=== PATIENT | male | born 1955 | race Two or more races ===

== ENCOUNTER 2021-11-08 11:15 | Inpatient (IN) | payer MEDICAID ==
[~2021-11-08] VITALS: Ht 160 cm; Wt 70.5 kg
[2021-11-08 12:51] LABS: BASOPHILS # (AUTO) 0.1 X10'3 (0-0.2); BASOPHILS % (AUTO) 1.2 % (0-1); EOSINOPHILS # (AUTO) 0.2 X10'3 (0-0.9); EOSINOPHILS % (AUTO) 2.2 % (0-6); HEMATOCRIT 39.5 % (42.0-52.0); HEMOGLOBIN 13.2 g/dl (14.0-17.9); LYMPHOCYTES # (AUTO) 3.1 X10'3 (1.1-4.8); LYMPHOCYTES % (AUTO) 29.5 % (21-51); MEAN CORPUSCULAR HEMOGLOBIN 30.3 PG (27.0-31.0); MEAN CORPUSCULAR HGB CONC 33.5 g/dL (33.0-36.5); MEAN CORPUSCULAR VOLUME 90.4 FL (78-98); MEAN PLATELET VOLUME 8.2 FL (7.4-10.4); MONOCYTES # (AUTO) 0.8 X10'3 (0-0.9); MONOCYTES % (AUTO) 7.7 % (2-12); NEUTROPHILS # (AUTO) 6.2 X10'3 (1.8-7.7); NEUTROPHILS % (AUTO) 59.4 % (42-75); PLATELET COUNT 290 X10'3 (140-440); RED BLOOD COUNT 4.37 X10'6 (4.70-6.10); RED CELL DISTRIBUTION WIDTH 13.4 % (11.5-14.5); WHITE BLOOD COUNT 10.4 X10'3 (4.5-11.0)
[2021-11-08 13:05] LABS: APTT 28 SECONDS (22-32)
[2021-11-08 13:07] LABS: ALANINE AMINOTRANSFERASE 19 U/L (12-78); ALBUMIN 3.4 G/DL (3.4-5.0); ALBUMIN/GLOBULIN RATIO 0.8 (1.1-1.5); ALKALINE PHOSPHATASE 86 IU/L (46-116); ANION GAP 8 (8-16); ASPARTATE AMINO TRANSFERASE 18 U/L (10-37); BILIRUBIN,TOTAL 0.5 MG/DL (0.1-1.0); BLOOD UREA NITROGEN 26 MG/DL (7-18); BUN/CREATININE RATIO 15.3 (5.4-32.0); CALCIUM 8.9 MG/DL (8.5-10.1); CHLORIDE 103 MMOL/L (99-107); GLUCOSE 149 MG/DL (70-104); MAGNESIUM 2.3 MG/DL (1.5-2.4); POTASSIUM 5.1 MMOL/L (3.5-5.1); SODIUM 138 MMOL/L (135-145); TOTAL CARBON DIOXIDE 26.9 MMOL/L (24-32); TOTAL PROTEIN 7.8 G/DL (6.4-8.2); eGFR 41 ML/MIN
[2021-11-08] MEDS ORDERED: potassium CL 10mEq/100ml bag 100 ML IV PRN (14:00)
[2021-11-08] MEDS ORDERED: mag hydrox/Alum hydrox/simeth 30ml oral suspension PO PRN (14:00)
[2021-11-08] MEDS ORDERED: HYDROmorphone/PF 0.2 MG/ML SYRINGE IV PRN (14:00)
[2021-11-08] MEDS ORDERED: magnesium 4gm in 100ml NS 100 ML IV PRN (14:00)
[2021-11-08] MEDS ORDERED: magnesium Cl slow-release 64mg tablet PO PRN (14:00)
[2021-11-08] MEDS ORDERED: magnesium 2GM in 50ml NS 50 ML IV PRN (14:00)
[2021-11-08] MEDS ORDERED: ampicillin/sulbac 3gm/NS 100ml 100 ML IV SCH (14:00)
[2021-11-08] MEDS ORDERED: POTASSIUM BICARB 20meq eff tab 20 MEQ TABLET.EFF PO PRN ×2 (14:00)
[2021-11-08] MEDS ORDERED: ampicillin/sulbac 3gm/NS 100ml 100 ML IV ONE (14:00)
--- NOTE | 2021-11-08 14:06 | NUR ---
PHARMACY IS IN PROCESS OF REVIEWING THE MEDS.
[2021-11-08 15:01] LABS: MAGNESIUM 2.2 MG/DL (1.5-2.4); POTASSIUM 4.7 MMOL/L (3.5-5.1)
[2021-11-08] MEDS: normal saline 1000ml 1,000 ML IV SCH (15:38)
[2021-11-08] MEDS: HYDROmorphone inj. 0.5 MG/0.5 ML DISP.SYRIN IV PRN ×2 (16:07→23:48)
[2021-11-08] MEDS ORDERED: HUM100IN SQ (16:44)
[2021-11-08] MEDS ORDERED: INSU100I31 SQ (16:44)
[2021-11-08] MEDS ORDERED: ASPI-611 PO (16:44)
[2021-11-08] MEDS ORDERED: FLO0.4C PO (16:44)
[2021-11-08] MEDS ORDERED: CARV6.253 PO (16:44)
[2021-11-08] MEDS ORDERED: AMLO5TAB16 PO (16:44)
[2021-11-08] MEDS ORDERED: ERTU5TAB PO (16:44)
[2021-11-08] MEDS ORDERED: VALS40TA11 PO (16:44)
[2021-11-08] MEDS ORDERED: GABA300C PO (16:44)
[2021-11-08] MEDS ORDERED: ATOR40TA72 PO (16:44)
[2021-11-08] MEDS: K and/or MAG REPLACEMENT MC SCH (20:00)
[2021-11-08] MEDS: docusate sod 100mg capsule PO SCH (20:29)
[2021-11-08] MEDS: gabapentin 300mg capsule PO SCH (20:29)
[2021-11-08] MEDS: carvedilol 6.25mg tablet PO SCH (20:30)
[2021-11-08] MEDS: enoxaparin 30mg/0.3ml syringe SQ SCH (20:31)
[2021-11-08] MEDS: piperacillin/tazo 3.375gm/50ml 50 ML IV SCH (20:37)
[2021-11-08] MEDS ORDERED: insulin glargine (Lantus) pen - multi-dose SQ SCH (21:00)
[2021-11-08 23:41] VITALS: BP 167/75
[2021-11-09] MEDS: normal saline 1000ml 1,000 ML IV SCH ×3 (00:08→21:59)
[2021-11-09 02:00] VITALS: BP 149/79
[2021-11-09 06:00] VITALS: BP 169/70
[2021-11-09 07:10] LABS: BASOPHILS # (AUTO) 0.1 X10'3 (0-0.2); BASOPHILS % (AUTO) 0.9 % (0-1); EOSINOPHILS # (AUTO) 0.3 X10'3 (0-0.9); EOSINOPHILS % (AUTO) 2.5 % (0-6); HEMATOCRIT 36.9 % (42.0-52.0); HEMOGLOBIN 12.2 g/dl (14.0-17.9); LYMPHOCYTES # (AUTO) 2.2 X10'3 (1.1-4.8); LYMPHOCYTES % (AUTO) 21.7 % (21-51); MEAN CORPUSCULAR HGB CONC 32.9 g/dL (33.0-36.5); MEAN CORPUSCULAR VOLUME 91.2 FL (78-98); MEAN PLATELET VOLUME 8.7 FL (7.4-10.4); MONOCYTES % (AUTO) 9.6 % (2-12); NEUTROPHILS # (AUTO) 6.7 X10'3 (1.8-7.7); NEUTROPHILS % (AUTO) 65.3 % (42-75); PLATELET COUNT 274 X10'3 (140-440); RED BLOOD COUNT 4.05 X10'6 (4.70-6.10); RED CELL DISTRIBUTION WIDTH 13.4 % (11.5-14.5); WHITE BLOOD COUNT 10.3 X10'3 (4.5-11.0)
[2021-11-09 07:17] LABS: ALBUMIN 2.9 G/DL (3.4-5.0); ANION GAP 9 (8-16); BLOOD UREA NITROGEN 22 MG/DL (7-18); BUN/CREATININE RATIO 17.5 (5.4-32.0); CALCIUM 8.3 MG/DL (8.5-10.1); CHLORIDE 110 MMOL/L (99-107); CREATININE 1.26 MG/DL (0.60-1.10); GLUCOSE 53 MG/DL (70-104); MAGNESIUM 2.1 MG/DL (1.5-2.4); POTASSIUM 4.1 MMOL/L (3.5-5.1); SODIUM 144 MMOL/L (135-145); TOTAL CARBON DIOXIDE 25.2 MMOL/L (24-32); eGFR 58 ML/MIN
[2021-11-09] MEDS: enoxaparin 30mg/0.3ml syringe SQ SCH ×2 (07:48→21:57)
[2021-11-09] MEDS: piperacillin/tazo 3.375gm/50ml 50 ML IV SCH ×3 (07:48→21:58)
[2021-11-09] MEDS: gabapentin 300mg capsule PO SCH ×2 (07:49→21:58)
[2021-11-09] MEDS: tamsulosin 0.4mg capsule PO SCH (07:49)
[2021-11-09] MEDS: docusate sod 100mg capsule PO SCH ×2 (07:49→21:58)
[2021-11-09] MEDS: atorvastatin 20mg tablet PO SCH (07:49)
[2021-11-09] MEDS: carvedilol 6.25mg tablet PO SCH ×2 (07:49→21:58)
[2021-11-09] MEDS: amLODIPine 5mg tablet PO SCH (07:49)
[2021-11-09] MEDS: aspirin 81mg, enteric-coated 1 TAB TABLET.DR PO SCH (07:50)
[2021-11-09] MEDS: losartan 25mg tablet PO SCH (07:50)
[2021-11-09 07:58] LABS: HEMOGLOBIN A1C 8.9 % (4.5-6.2)
[2021-11-09] MEDS: K and/or MAG REPLACEMENT MC SCH ×2 (08:00→20:00)
[2021-11-09] MEDS ORDERED: INSULIN ISOPHANE SQ SCH (08:00)
[2021-11-09] MEDS ORDERED: INSULIN REGULAR SQ SCH (08:00)
[2021-11-09] MEDS ORDERED: ERTUGLIFLOZIN PIDOLATE PO SCH (08:00)
[2021-11-09] MEDS ORDERED: [UNRECOGNIZED DRUG - OTHER] SQ SCH (08:00)
--- NOTE | 2021-11-09 09:09 | NUR ---
PAGER ID: [phone] MESSAGE: alisia Tomlinson in room 4084O BG this AM 56. Held 0800 scheduled insulin and PO antiglycemic PO meds thank you JANE BEASLEY
[2021-11-09] MEDS ORDERED: dextrose 50%-water 50ml dispensing syringe IV PRN ×2 (09:20)
[2021-11-09] MEDS ORDERED: glucagon, human recombinant 1mg kit SUBCUT PRN (09:20)
[2021-11-09] MEDS ORDERED: DEXTROSE 15 GM of carb/4 tabs (each vial/BOTTLE has 4 tablets) PO PRN ×2 (09:20)
[2021-11-09] MEDS ORDERED: MESSAGE TO PHARMACY PO ONE (09:20)
[2021-11-09 10:00] VITALS: BP 142/76
[2021-11-09] MEDS ORDERED: pneumococcal 23-VAL P-sac vacc 25 mcg/0.5ml vial IMVAC ONE (10:00)
--- NOTE | 2021-11-09 11:57 | NUR ---
DM Consult: Pt admit DX R foot cellulitis and eschar wound, RLE PVD, T2DM, and HTN per EMR. A1C 8.9% this admit. Pt seen by RD at bedside for written/verbal DM diet ed w/ RD contact information provided. Pt reports takes meds per Rx, checks Glu routinely, and most recent A1C ~9.3% last check. Pt reports previously more on top of DM diet w/ A1C around 7 in 2020 but admits has been more lax of diet as of late. Pt reports has had DM ed in past aware of portion size control, protein/fiber sources, and hydration. RD encouraged pt to contact dietitian's office if further questions/concerns. Addendum: 11/09/21 at [address] Amended: Links added.
[2021-11-09] MEDS ORDERED: midazolam 1 mg/ML 2ml injection ONE (13:56)
[2021-11-09] MEDS ORDERED: iohexol 350MG/ML 100ml bottle IV ONE (13:56)
[2021-11-09] MEDS ORDERED: LIDOcaine 1%/PF 5ML 10 MG/ML VIAL ONE (13:56)
[2021-11-09] MEDS ORDERED: fentaNYL/PF 50MCG/1 ML 2ML syringe ONE (13:56)
[2021-11-09] MEDS ORDERED: heparin 1,000 UNITS/NS 500ml 500 ML ONE (13:56)
[2021-11-09] MEDS: insulin glargine (Lantus) pen - multi-dose SQ SCH ×2 (21:00→22:04)
[2021-11-09] MEDS: HYDROmorphone inj. 0.5 MG/0.5 ML DISP.SYRIN IV PRN (21:25)
[2021-11-10] MEDS: piperacillin/tazo 3.375gm/50ml 50 ML IV SCH ×3 (05:25→21:33)
[2021-11-10 06:00] VITALS: BP 157/65
[2021-11-10] MEDS: normal saline 1000ml 1,000 ML IV SCH ×3 (06:00→18:16)
--- NOTE | 2021-11-10 06:30 | NUR ---
Patient in room PCU 3017. I have received report from RAMOS Egan and had the opportunity to ask questions and assume patient care.
[2021-11-10 07:16] LABS: BASOPHILS # (AUTO) 0.1 X10'3 (0-0.2); BASOPHILS % (AUTO) 1.2 % (0-1); EOSINOPHILS # (AUTO) 0.7 X10'3 (0-0.9); EOSINOPHILS % (AUTO) 7.8 % (0-6); HEMATOCRIT 35.4 % (42.0-52.0); HEMOGLOBIN 11.9 g/dl (14.0-17.9); LYMPHOCYTES # (AUTO) 2.5 X10'3 (1.1-4.8); LYMPHOCYTES % (AUTO) 30.1 % (21-51); MEAN CORPUSCULAR HEMOGLOBIN 30.5 PG (27.0-31.0); MEAN CORPUSCULAR HGB CONC 33.6 g/dL (33.0-36.5); MEAN CORPUSCULAR VOLUME 90.6 FL (78-98); MEAN PLATELET VOLUME 8.6 FL (7.4-10.4); MONOCYTES # (AUTO) 0.9 X10'3 (0-0.9); MONOCYTES % (AUTO) 10.3 % (2-12); NEUTROPHILS # (AUTO) 4.2 X10'3 (1.8-7.7); NEUTROPHILS % (AUTO) 50.6 % (42-75); PLATELET COUNT 256 X10'3 (140-440); RED BLOOD COUNT 3.91 X10'6 (4.70-6.10); RED CELL DISTRIBUTION WIDTH 13.3 % (11.5-14.5); WHITE BLOOD COUNT 8.4 X10'3 (4.5-11.0)
[2021-11-10 07:19] LABS: ALBUMIN 2.8 G/DL (3.4-5.0); ANION GAP 6 (8-16); BLOOD UREA NITROGEN 19 MG/DL (7-18); BUN/CREATININE RATIO 11.5 (5.4-32.0); CALCIUM 8.1 MG/DL (8.5-10.1); CHLORIDE 110 MMOL/L (99-107); CREATININE 1.65 MG/DL (0.60-1.10); GLUCOSE 111 MG/DL (70-104); POTASSIUM 4.6 MMOL/L (3.5-5.1); SODIUM 142 MMOL/L (135-145); TOTAL CARBON DIOXIDE 26.1 MMOL/L (24-32); eGFR 42 ML/MIN
[2021-11-10] MEDS: K and/or MAG REPLACEMENT MC SCH ×2 (08:00→20:00)
[2021-11-10] MEDS: magnesium hydroxide 30ml (MOM) UD suspension PO PRN (09:54)
[2021-11-10] MEDS: atorvastatin 20mg tablet PO SCH (09:54)
[2021-11-10] MEDS: losartan 25mg tablet PO SCH (09:54)
[2021-11-10] MEDS: amLODIPine 5mg tablet PO SCH (09:55)
[2021-11-10] MEDS: gabapentin 300mg capsule PO SCH ×2 (09:55→21:33)
[2021-11-10] MEDS: tamsulosin 0.4mg capsule PO SCH (09:55)
[2021-11-10] MEDS: aspirin 81mg, enteric-coated 1 TAB TABLET.DR PO SCH (09:55)
[2021-11-10] MEDS: carvedilol 6.25mg tablet PO SCH ×2 (09:55→21:33)
[2021-11-10] MEDS: docusate sod 100mg capsule PO SCH ×2 (09:55→21:34)
[2021-11-10] MEDS: enoxaparin 30mg/0.3ml syringe SQ SCH ×2 (09:56→21:33)
[2021-11-10] MEDS: insulin Lispro (HumaLOG) vial - multi-dose SQ SCH (10:02)
[2021-11-10 11:00] VITALS: BP 168/68
[2021-11-10 15:00] VITALS: BP 167/80
[2021-11-10] MEDS: HYDROmorphone inj. 0.5 MG/0.5 ML DISP.SYRIN IV PRN (16:59)
[2021-11-10] MEDS: hydrALAZINE 20mg/ml inj. IV PRN (17:03)
[2021-11-10 18:00] VITALS: BP 135/62
--- NOTE | 2021-11-10 18:30 | NUR ---
Problems reprioritized. Patient report given, questions answered & plan of care reviewed with RAMOS Rojas.
[2021-11-10 22:00] VITALS: BP 142/64
[2021-11-11] VITALS (7 sets, daily range): BP systolic 113–187; BP diastolic 53–81
[2021-11-11] MEDS: piperacillin/tazo 3.375gm/50ml 50 ML IV SCH ×3 (04:00→22:45)
--- NOTE | 2021-11-11 06:30 | NUR ---
Patient in room PCU 3017. I have received report from RAMOS Rojas and had the opportunity to ask questions and assume patient care.
[2021-11-11 06:31] LABS: BASOPHILS # (AUTO) 0.1 X10'3 (0-0.2); BASOPHILS % (AUTO) 1.3 % (0-1); EOSINOPHILS # (AUTO) 0.4 X10'3 (0-0.9); EOSINOPHILS % (AUTO) 4.3 % (0-6); HEMATOCRIT 37.5 % (42.0-52.0); HEMOGLOBIN 12.3 g/dl (14.0-17.9); LYMPHOCYTES # (AUTO) 2.3 X10'3 (1.1-4.8); LYMPHOCYTES % (AUTO) 23.7 % (21-51); MEAN CORPUSCULAR HEMOGLOBIN 29.7 PG (27.0-31.0); MEAN CORPUSCULAR HGB CONC 32.7 g/dL (33.0-36.5); MEAN CORPUSCULAR VOLUME 90.8 FL (78-98); MEAN PLATELET VOLUME 8.8 FL (7.4-10.4); MONOCYTES # (AUTO) 0.8 X10'3 (0-0.9); MONOCYTES % (AUTO) 7.8 % (2-12); NEUTROPHILS # (AUTO) 6.1 X10'3 (1.8-7.7); NEUTROPHILS % (AUTO) 62.9 % (42-75); PLATELET COUNT 268 X10'3 (140-440); RED BLOOD COUNT 4.13 X10'6 (4.70-6.10); RED CELL DISTRIBUTION WIDTH 13.2 % (11.5-14.5); WHITE BLOOD COUNT 9.8 X10'3 (4.5-11.0)
[2021-11-11 06:36] LABS: ALBUMIN 2.9 G/DL (3.4-5.0); ANION GAP 10 (8-16); BLOOD UREA NITROGEN 14 MG/DL (7-18); BUN/CREATININE RATIO 9.3 (5.4-32.0); CALCIUM 8.4 MG/DL (8.5-10.1); CHLORIDE 109 MMOL/L (99-107); CREATININE 1.51 MG/DL (0.60-1.10); GLUCOSE 133 MG/DL (70-104); POTASSIUM 4.6 MMOL/L (3.5-5.1); SODIUM 142 MMOL/L (135-145); TOTAL CARBON DIOXIDE 23.1 MMOL/L (24-32); eGFR 47 ML/MIN
[2021-11-11] MEDS: normal saline 1000ml 1,000 ML IV SCH (06:55)
[2021-11-11] MEDS: hydrALAZINE 20mg/ml inj. IV PRN ×3 (06:56→22:28)
[2021-11-11] MEDS: K and/or MAG REPLACEMENT MC SCH ×2 (08:00→20:00)
[2021-11-11] MEDS: HYDROmorphone inj. 0.5 MG/0.5 ML DISP.SYRIN IV PRN ×2 (11:07→22:29)
[2021-11-11] MEDS: gabapentin 300mg capsule PO SCH ×2 (11:08→20:02)
[2021-11-11] MEDS: aspirin 81mg, enteric-coated 1 TAB TABLET.DR PO SCH (11:08)
[2021-11-11] MEDS: atorvastatin 20mg tablet PO SCH (11:08)
[2021-11-11] MEDS: docusate sod 100mg capsule PO SCH ×2 (11:08→20:02)
[2021-11-11] MEDS: tamsulosin 0.4mg capsule PO SCH (11:08)
[2021-11-11] MEDS: amLODIPine 5mg tablet PO SCH (11:08)
[2021-11-11] MEDS: losartan 25mg tablet PO SCH (11:09)
[2021-11-11] MEDS: carvedilol 6.25mg tablet PO SCH ×2 (11:09→20:01)
[2021-11-11] MEDS: enoxaparin 30mg/0.3ml syringe SQ SCH ×2 (11:10→20:03)
--- NOTE | 2021-11-11 18:50 | NUR ---
Problems reprioritized. Patient report given, questions answered & plan of care reviewed with RAMOS Reinoso.
[2021-11-11] MEDS: insulin Lispro (HumaLOG) vial - multi-dose SQ SCH (19:54)
--- NOTE | 2021-11-11 22:59 | NUR ---
Message sent to Dr. Singh to report critical blood sugar [address] Singh called back. Informed of sliding scale insulin given after BS met parameter. Pt appears to be very sensitive. Juice given as well as D50 per protocol. Blood sugar recheck 209. stated ok to hold lantus tonight and has team look at possible changing scale tomorrow.
[2021-11-11] MEDS: insulin glargine (Lantus) pen - multi-dose SQ SCH (23:17)
[2021-11-12 02:00] VITALS: BP 143/60
[2021-11-12] MEDS: normal saline 1000ml 1,000 ML IV SCH ×3 (03:53→19:35)
[2021-11-12] MEDS: piperacillin/tazo 3.375gm/50ml 50 ML IV SCH ×3 (04:00→22:00)
[2021-11-12 06:00] VITALS: BP 165/77
--- NOTE | 2021-11-12 06:50 | NUR ---
Patient in room PCU 3017. I have received report from RAMOS Reinoso and had the opportunity to ask questions and assume patient care.
--- NOTE | 2021-11-12 07:31 | NUR ---
1800 Report given to this RN from RAMOS Box at bedside. Care assumed. Pt in no distress. Pt got x1 dose of dilaudid for pain. He also got x1 dose of hydralazine. Blood sugar critical last night. MD notified. See note. 0615 Report givent to RAMOS Box at bedside. Questions answered. Pt in no acute distress at time of handoff.
[2021-11-12 08:08] LABS: BASOPHILS # (AUTO) 0.1 X10'3 (0-0.2); BASOPHILS % (AUTO) 0.8 % (0-1); EOSINOPHILS # (AUTO) 0.3 X10'3 (0-0.9); EOSINOPHILS % (AUTO) 3.1 % (0-6); HEMATOCRIT 34.9 % (42.0-52.0); HEMOGLOBIN 11.8 g/dl (14.0-17.9); LYMPHOCYTES # (AUTO) 2.6 X10'3 (1.1-4.8); LYMPHOCYTES % (AUTO) 26.4 % (21-51); MEAN CORPUSCULAR HEMOGLOBIN 30.4 PG (27.0-31.0); MEAN CORPUSCULAR HGB CONC 33.7 g/dL (33.0-36.5); MEAN CORPUSCULAR VOLUME 90.2 FL (78-98); MONOCYTES # (AUTO) 1.1 X10'3 (0-0.9); MONOCYTES % (AUTO) 11.2 % (2-12); NEUTROPHILS # (AUTO) 5.8 X10'3 (1.8-7.7); NEUTROPHILS % (AUTO) 58.5 % (42-75); PLATELET COUNT 232 X10'3 (140-440); RED BLOOD COUNT 3.87 X10'6 (4.70-6.10); RED CELL DISTRIBUTION WIDTH 13.1 % (11.5-14.5); WHITE BLOOD COUNT 9.8 X10'3 (4.5-11.0)
[2021-11-12 08:20] LABS: ALBUMIN 2.7 G/DL (3.4-5.0); ANION GAP 9 (8-16); BLOOD UREA NITROGEN 14 MG/DL (7-18); BUN/CREATININE RATIO 9.5 (5.4-32.0); CALCIUM 8.2 MG/DL (8.5-10.1); CHLORIDE 109 MMOL/L (99-107); CREATININE 1.48 MG/DL (0.60-1.10); GLUCOSE 170 MG/DL (70-104); MAGNESIUM 1.8 MG/DL (1.5-2.4); POTASSIUM 4.3 MMOL/L (3.5-5.1); SODIUM 141 MMOL/L (135-145); TOTAL CARBON DIOXIDE 23.3 MMOL/L (24-32); eGFR 48 ML/MIN
--- NOTE | 2021-11-12 08:21 | NUR ---
Initial: Pt admitted w/ R foot cellulitis w/ open wounds and PVD per EMR. Pt documented w/ multiple partial/full thickness wounds to bilateral feet, see WOC note for details. Currently on Carb Control diet w/ mostly 100% intake of meals meeting est needs at this time, though pt may still benefit from Oswaldo Smoothies BID to assist w/ wound healing. LBM / receiving routine and PRN bowel care. Will continue to monitor. Recs; 1. Continue Carb control diet as tolerated 2. Oswaldo Smoothies BIDBD; pending MD verification 3. Bowel care per rx 4. Scaled wts Addendum: 11/12/21 at [address] Amended: Links added.
[2021-11-12] MEDS: K and/or MAG REPLACEMENT MC SCH ×2 (10:32→19:41)
[2021-11-12] MEDS: atorvastatin 20mg tablet PO SCH (10:39)
[2021-11-12] MEDS: losartan 25mg tablet PO SCH (10:39)
[2021-11-12] MEDS: carvedilol 6.25mg tablet PO SCH ×2 (10:39→19:42)
[2021-11-12] MEDS: aspirin 81mg, enteric-coated 1 TAB TABLET.DR PO SCH (10:42)
[2021-11-12] MEDS: amLODIPine 5mg tablet PO SCH (10:42)
[2021-11-12] MEDS: tamsulosin 0.4mg capsule PO SCH (10:42)
[2021-11-12] MEDS: docusate sod 100mg capsule PO SCH ×2 (10:42→19:47)
[2021-11-12] MEDS: gabapentin 300mg capsule PO SCH ×2 (10:42→19:47)
[2021-11-12] MEDS: enoxaparin 30mg/0.3ml syringe SQ SCH ×2 (10:43→19:48)
[2021-11-12] MEDS: HYDROmorphone inj. 0.5 MG/0.5 ML DISP.SYRIN IV PRN ×2 (10:44→17:04)
[2021-11-12 11:00] VITALS: BP 186/83
[2021-11-12 15:00] VITALS: BP 156/68
[2021-11-12] MEDS: JUVEN Smoothie Arginine/Glut./Ca2+Bmb (Juven 19.3pkt) 240ml cup PO SCH (17:30)
[2021-11-12 18:40] VITALS: BP 154/76
--- NOTE | 2021-11-12 19:40 | NUR ---
Problems reprioritized. Patient report given, questions answered & plan of care reviewed with RAMOS Michaud.
[2021-11-12 22:00] VITALS: BP 152/64
[2021-11-12] MEDS: insulin glargine (Lantus) pen - multi-dose SQ SCH (23:19)
[2021-11-13 02:00] VITALS: BP 166/64
[2021-11-13] MEDS: normal saline 1000ml 1,000 ML IV SCH (04:30)
[2021-11-13] MEDS: piperacillin/tazo 3.375gm/50ml 50 ML IV SCH (05:37)
[2021-11-13 06:54] LABS: BASOPHILS # (AUTO) 0.1 X10'3 (0-0.2); BASOPHILS % (AUTO) 0.9 % (0-1); EOSINOPHILS # (AUTO) 0.4 X10'3 (0-0.9); EOSINOPHILS % (AUTO) 4.9 % (0-6); HEMATOCRIT 34.5 % (42.0-52.0); HEMOGLOBIN 11.6 g/dl (14.0-17.9); LYMPHOCYTES # (AUTO) 2.1 X10'3 (1.1-4.8); LYMPHOCYTES % (AUTO) 23.8 % (21-51); MEAN CORPUSCULAR HEMOGLOBIN 30.2 PG (27.0-31.0); MEAN CORPUSCULAR HGB CONC 33.5 g/dL (33.0-36.5); MEAN CORPUSCULAR VOLUME 90.3 FL (78-98); MEAN PLATELET VOLUME 9.1 FL (7.4-10.4); MONOCYTES % (AUTO) 10.7 % (2-12); NEUTROPHILS # (AUTO) 5.4 X10'3 (1.8-7.7); NEUTROPHILS % (AUTO) 59.7 % (42-75); PLATELET COUNT 243 X10'3 (140-440); RED BLOOD COUNT 3.82 X10'6 (4.70-6.10); RED CELL DISTRIBUTION WIDTH 13.1 % (11.5-14.5)
[2021-11-13 07:00] VITALS: BP 181/79
[2021-11-13 07:07] LABS: ALBUMIN 2.7 G/DL (3.4-5.0); ANION GAP 8 (8-16); BLOOD UREA NITROGEN 17 MG/DL (7-18); BUN/CREATININE RATIO 12.4 (5.4-32.0); CHLORIDE 111 MMOL/L (99-107); CREATININE 1.37 MG/DL (0.60-1.10); GLUCOSE 135 MG/DL (70-104); POTASSIUM 4.3 MMOL/L (3.5-5.1); SODIUM 143 MMOL/L (135-145); TOTAL CARBON DIOXIDE 24.3 MMOL/L (24-32); eGFR 52 ML/MIN
--- NOTE | 2021-11-13 07:20 | NUR ---
Problems reprioritized. Patient report given, questions answered & plan of care reviewed with AKILAH. Addendum: 11/13/21 at 0721 by Navjot Perez RN Amended: Links added.
--- NOTE | 2021-11-13 07:21 | NUR ---
Problems reprioritized. Patient report given, questions answered & plan of care reviewed with AKILAH. Addendum: 11/13/21 at 0722 by Navjot Perez RN Amended: Links added.
[2021-11-13] MEDS: JUVEN Smoothie Arginine/Glut./Ca2+Bmb (Juven 19.3pkt) 240ml cup PO SCH ×2 (07:30→17:44)
[2021-11-13] MEDS: K and/or MAG REPLACEMENT MC SCH ×2 (08:00→20:00)
[2021-11-13] MEDS: docusate sod 100mg capsule PO SCH ×2 (08:00→21:03)
[2021-11-13] MEDS: gabapentin 300mg capsule PO SCH ×2 (08:57→21:03)
[2021-11-13] MEDS: enoxaparin 30mg/0.3ml syringe SQ SCH ×2 (08:57→21:04)
[2021-11-13] MEDS: carvedilol 6.25mg tablet PO SCH ×2 (08:57→21:03)
[2021-11-13] MEDS: amLODIPine 5mg tablet PO SCH (08:58)
[2021-11-13] MEDS: tamsulosin 0.4mg capsule PO SCH (08:58)
[2021-11-13] MEDS: losartan 25mg tablet PO SCH (08:58)
[2021-11-13] MEDS: aspirin 81mg, enteric-coated 1 TAB TABLET.DR PO SCH (08:58)
[2021-11-13] MEDS: atorvastatin 20mg tablet PO SCH (08:58)
[2021-11-13] MEDS ORDERED: losartan 50mg tablet PO SCH (09:17)
[2021-11-13] MEDS ORDERED: losartan 50mg tablet PO ONE (09:35)
[2021-11-13] MEDS: HYDROcodone/acetaminophen 10/325mg tab PO PRN ×2 (10:51→15:58)
[2021-11-13 12:10] VITALS: BP 125/77
--- NOTE | 2021-11-13 13:28 | NUR ---
Spoke to DR Ozuna regarding [facility] nursing order states to keep patient at level 1 and only treat correction for blood sugar. Dr Ozuna is aware patient blood sugar is 245 now and was 121 this am no insulin given per protocol. Per Dr Ozuna keep patient the way it is for the next 24 hours and we will reassess tomorrow.
[2021-11-13] MEDS: insulin Lispro (HumaLOG) vial - multi-dose SQ SCH (13:38)
[2021-11-13 15:00] VITALS: BP 164/74
[2021-11-13 18:40] VITALS: BP 172/82
--- NOTE | 2021-11-13 18:42 | NUR ---
Problems reprioritized. Patient report given, questions answered & plan of care reviewed with Jaswant BEASLEY bedside report .
[2021-11-13] MEDS: insulin glargine (Lantus) pen - multi-dose SQ SCH (21:18)
[2021-11-13 22:00] VITALS: BP 181/83
[2021-11-13] MEDS: hydrALAZINE 20mg/ml inj. IV PRN (23:01)
[2021-11-14] VITALS (19 sets, daily range): BP systolic 128–185; BP diastolic 56–80
--- NOTE | 2021-11-14 06:30 | NUR ---
Problems reprioritized. Patient report given, questions answered & plan of care reviewed with AKILAH. Addendum: 11/14/21 at 0649 by Navjot Perez RN Amended: Links added.
--- NOTE | 2021-11-14 07:01 | NUR ---
Patient in room PCU 3017. I have received report from Jaswant BEASLEY and had the opportunity to ask questions and assume patient care.
--- NOTE | 2021-11-14 07:23 | NUR ---
Jean Carlos with [facility] stating they are not aware of him coming today until Dr Garcia comes in. Doddridge with V[facility] will be here in 30 min for vein mapping, EKG was paged for Preop EKG
[2021-11-14] MEDS: JUVEN Smoothie Arginine/Glut./Ca2+Bmb (Juven 19.3pkt) 240ml cup PO SCH ×2 (07:30→17:30)
[2021-11-14] MEDS: enoxaparin 30mg/0.3ml syringe SQ SCH ×2 (07:31→23:18)
[2021-11-14] MEDS: aspirin 81mg, enteric-coated 1 TAB TABLET.DR PO SCH (07:36)
[2021-11-14] MEDS: carvedilol 6.25mg tablet PO SCH ×2 (07:36→23:17)
[2021-11-14] MEDS: gabapentin 300mg capsule PO SCH ×2 (07:36→23:17)
[2021-11-14] MEDS: amLODIPine 5mg tablet PO SCH (07:37)
[2021-11-14] MEDS: tamsulosin 0.4mg capsule PO SCH (07:37)
[2021-11-14] MEDS: atorvastatin 20mg tablet PO SCH (07:37)
[2021-11-14] MEDS: docusate sod 100mg capsule PO SCH ×2 (07:39→23:17)
[2021-11-14] MEDS: K and/or MAG REPLACEMENT MC SCH ×2 (08:00→23:04)
[2021-11-14 08:04] LABS: BASOPHILS # (AUTO) 0.1 X10'3 (0-0.2); BASOPHILS % (AUTO) 1.2 % (0-1); EOSINOPHILS # (AUTO) 0.5 X10'3 (0-0.9); EOSINOPHILS % (AUTO) 5.3 % (0-6); HEMATOCRIT 36.2 % (42.0-52.0); HEMOGLOBIN 12.1 g/dl (14.0-17.9); LYMPHOCYTES # (AUTO) 1.9 X10'3 (1.1-4.8); LYMPHOCYTES % (AUTO) 22.2 % (21-51); MEAN CORPUSCULAR HGB CONC 33.3 g/dL (33.0-36.5); MEAN CORPUSCULAR VOLUME 90.2 FL (78-98); MEAN PLATELET VOLUME 8.4 FL (7.4-10.4); MONOCYTES # (AUTO) 0.9 X10'3 (0-0.9); MONOCYTES % (AUTO) 9.8 % (2-12); NEUTROPHILS # (AUTO) 5.4 X10'3 (1.8-7.7); NEUTROPHILS % (AUTO) 61.5 % (42-75); PLATELET COUNT 268 X10'3 (140-440); RED BLOOD COUNT 4.02 X10'6 (4.70-6.10); RED CELL DISTRIBUTION WIDTH 13.4 % (11.5-14.5); WHITE BLOOD COUNT 8.8 X10'3 (4.5-11.0)
[2021-11-14 08:42] LABS: ALANINE AMINOTRANSFERASE 52 U/L (12-78); ALBUMIN 2.9 G/DL (3.4-5.0); ALBUMIN/GLOBULIN RATIO 0.8 (1.1-1.5); ALKALINE PHOSPHATASE 59 IU/L (46-116); ANION GAP 9 (8-16); ASPARTATE AMINO TRANSFERASE 46 U/L (10-37); BILIRUBIN,TOTAL 0.3 MG/DL (0.1-1.0); BLOOD UREA NITROGEN 22 MG/DL (7-18); BUN/CREATININE RATIO 16.3 (5.4-32.0); CALCIUM 8.7 MG/DL (8.5-10.1); CHLORIDE 108 MMOL/L (99-107); CREATININE 1.35 MG/DL (0.60-1.10); GLUCOSE 130 MG/DL (70-104); POTASSIUM 4.4 MMOL/L (3.5-5.1); SODIUM 142 MMOL/L (135-145); TOTAL CARBON DIOXIDE 24.6 MMOL/L (24-32); TOTAL PROTEIN 6.6 G/DL (6.4-8.2); eGFR 53 ML/MIN
[2021-11-14] MEDS: losartan 50mg tablet PO SCH (10:13)
--- NOTE | 2021-11-14 14:41 | NUR ---
Called Dr Mary anesthesiologist he is aware patients current BP is 182/80 I advised I do have IV Hydralazine [address] Mary please give to patient,.
[2021-11-14] MEDS: hydrALAZINE 20mg/ml inj. IV PRN (14:50)
[2021-11-14] MEDS ORDERED: heparin 10,000 units/1 ML INJ ONE (15:32)
[2021-11-14] MEDS ORDERED: midazolam 1 mg/ML 2ml injection ONE (16:01)
[2021-11-14] MEDS ORDERED: fentaNYL /PF 50mcg/ml 5ml ampule ONE (16:01)
--- NOTE | 2021-11-14 16:32 | NUR ---
Went into patient room to check on patient and patient and hospital bed were gone. Called recovery room patient is down there. Report given to Christina in Recovery all questions answered. Advised Christina that I did not know patient was taken to recovery so patients Ancef was not sent. Per Christina they have Ancef down there it is ok.
[2021-11-14] MEDS ORDERED: vancomycin 1,000mg inj ONE (16:51)
[2021-11-14] MEDS ORDERED: ondansetron/PF 4mg/2ml inj ONE (16:51)
[2021-11-14] MEDS ORDERED: sevoflurane 250ml liquid IH ONE (16:51)
[2021-11-14] MEDS ORDERED: ceFAZolin 1000mg inj ONE ×3 (16:51→17:44)
[2021-11-14] MEDS ORDERED: dexamethasone sod phosphate 10mg/ml inj ONE (16:51)
[2021-11-14] MEDS ORDERED: rocuronium 10mg/ml inj IV ONE ×2 (16:51→17:45)
[2021-11-14] MEDS ORDERED: propofol inj 0 ML IV ONE (17:44)
[2021-11-14] MEDS ORDERED: LIDOcaine 2% (20mg/ml) 5ml vial ONE (17:44)
[2021-11-14] MEDS ORDERED: propofol inj 20 ML IV ONE (17:45)
--- NOTE | 2021-11-14 17:59 | NUR ---
Patients took home all patients belongings.
[2021-11-14] MEDS ORDERED: iohexol 180mg/ml 20ml inj ONE (18:10)
--- NOTE | 2021-11-14 18:35 | NUR ---
Problems reprioritized. Patient report given, questions answered & plan of care reviewed with Cornelia BEASLEY.
[2021-11-14] MEDS ORDERED: IOHEXOL 350 MG/ML INFUS..BTL 125ML IV ONE (19:57)
[2021-11-14] MEDS ORDERED: labetalol 20mg/4ml (5mg/ml) syringe IV PRN (20:10)
[2021-11-14] MEDS ORDERED: ringers solution, lacted 1,000 ML IV SCH (20:10)
[2021-11-14] MEDS ORDERED: morphine 2 MG/ML inj. syringe IV PRN (20:10)
[2021-11-14] MEDS ORDERED: morphine 4 MG/ML inj SYRINge IV PRN (20:10)
[2021-11-14] MEDS ORDERED: hydrALAZINE 20mg/ml inj. IV PRN (20:10)
[2021-11-14] MEDS ORDERED: proCHLORperazine 10 MG/2 ml inj IV PRN (20:10)
[2021-11-14] MEDS ORDERED: meperidine/PF 25mg/ml syringe IV PRN ×2 (20:10)
[2021-11-14] MEDS ORDERED: acetaminophen 1,000mg/100ml IV 100 ML IV PRN (20:10)
[2021-11-14] MEDS ORDERED: ondansetron/PF 4mg/2ml inj IV PRN (20:10)
[2021-11-14] MEDS ORDERED: sugammadex 200mg/2ml injection IV ONE (21:17)
--- NOTE | 2021-11-14 21:22 | NUR ---
Received from OR via BED, accompanied by Anesthesiologist DR ZAIDI and report given by Anesthesiologist AND FINANCIAL SERVICES REP. PT DROWSY, DENIES PAIN. RIGHT INNER LEG FROM BELOW GROIN TO FOOT W/ISLAND DRSG W/SCANT AMTS OF S/S DRAINAGE, RIGHT LATERAL CALF W/ISLAND DRSG W/SCANT AMTS OF S/S DRAINAGE. PTS GRAFT AND PEDAL PULSES PALPABLE. CXR OBTAINED AND VIEWED BY DR ROSE. PT/PTT REDRAWN AND SENT TO LAB. Addendum: 11/14/21 at 2208 by Christina Henley RN Amended: Links added.
[2021-11-14] MEDS ORDERED: naloxone 0.4 mg/ml inj IV PRN (21:25)
[2021-11-14] MEDS: meperidine/PF 25mg/ml syringe IV PRN ×2 (21:44→21:56)
[2021-11-14 22:17] LABS: APTT > 139 SECONDS (22-32)
--- NOTE | 2021-11-14 22:42 | NUR ---
Report called to receiving nurse. Transferred via BED ON CM, ONLY Belongings UPPER DENTURES SENT W/PT TO ROOM 2039. RECEIVING RN AT BEDSIDE TO RECEIVE PT, REASSESSED RIGHT LEG AND DRSG'S, NO CHANGES NOTED. PULSES REMAIN THE SAME. PTS FAMILY UPDATED. Special Issues communicated to receiving nurse. YES. Addendum: 11/14/21 at 2304 by Christina Henley RN Amended: Links added.
[2021-11-14] MEDS: normal saline 1000ml 1,000 ML IV SCH ×2 (23:25)
[2021-11-14] MEDS: insulin glargine (Lantus) pen - multi-dose SQ SCH (23:49)
[2021-11-15] VITALS (18 sets, daily range): BP systolic 40–142; BP diastolic 21–66
[2021-11-15] MEDS: ceFAZolin/D5W- 1GM premix 50 ML IV SCH ×2 (00:45)
[2021-11-15] MEDS: HYDROmorphone inj. 0.5 MG/0.5 ML DISP.SYRIN IV PRN (01:48)
[2021-11-15] MEDS: insulin Lispro (HumaLOG) vial - multi-dose SQ SCH ×2 (03:35→12:38)
[2021-11-15 03:46] LABS: ALANINE AMINOTRANSFERASE 54 U/L (12-78); ALBUMIN 2.3 G/DL (3.4-5.0); ALBUMIN/GLOBULIN RATIO 0.7 (1.1-1.5); ALKALINE PHOSPHATASE 53 IU/L (46-116); ANION GAP 14 (8-16); ASPARTATE AMINO TRANSFERASE 55 U/L (10-37); BILIRUBIN,TOTAL 0.2 MG/DL (0.1-1.0); BLOOD UREA NITROGEN 25 MG/DL (7-18); CHLORIDE 107 MMOL/L (99-107); CREATININE 1.47 MG/DL (0.60-1.10); GLUCOSE 157 MG/DL (70-104); MAGNESIUM 1.6 MG/DL (1.5-2.4); PHOSPHORUS 5.1 MG/DL (2.3-4.5); POTASSIUM 4.3 MMOL/L (3.5-5.1); SODIUM 141 MMOL/L (135-145); TOTAL CARBON DIOXIDE 19.6 MMOL/L (24-32); TOTAL PROTEIN 5.5 G/DL (6.4-8.2); eGFR 48 ML/MIN
[2021-11-15 03:56] LABS: BASOPHILS # (AUTO) 0.1 X10'3 (0-0.2); BASOPHILS % (AUTO) 0.4 % (0-1); EOSINOPHILS % (AUTO) 0 % (0-6); HEMATOCRIT 30.2 % (42.0-52.0); LYMPHOCYTES # (AUTO) 1.5 X10'3 (1.1-4.8); LYMPHOCYTES % (AUTO) 8.2 % (21-51); MEAN CORPUSCULAR VOLUME 90.8 FL (78-98); MEAN PLATELET VOLUME 8.9 FL (7.4-10.4); MONOCYTES % (AUTO) 5.5 % (2-12); NEUTROPHILS # (AUTO) 15.8 X10'3 (1.8-7.7); NEUTROPHILS % (AUTO) 85.9 % (42-75); PLATELET COUNT 225 X10'3 (140-440); RED BLOOD COUNT 3.32 X10'6 (4.70-6.10); RED CELL DISTRIBUTION WIDTH 13.4 % (11.5-14.5); WHITE BLOOD COUNT 18.4 X10'3 (4.5-11.0)
[2021-11-15 04:38] LABS: TOTAL CELLS COUNTED 100
[2021-11-15 04:40] LABS: PLATELET ESTIMATE NORMAL
[2021-11-15] MEDS: HYDROcodone/acetaminophen 5mg/325mg tablet PO PRN ×3 (04:54→16:53)
[2021-11-15] MEDS ORDERED: magnesium 2GM in 50ml NS 50 ML IV ONE (06:50)
[2021-11-15] MEDS: docusate sod 100mg capsule PO SCH ×2 (07:08→19:49)
[2021-11-15] MEDS: gabapentin 300mg capsule PO SCH ×2 (07:08→19:49)
[2021-11-15] MEDS: carvedilol 6.25mg tablet PO SCH ×2 (07:09→20:00)
[2021-11-15] MEDS: atorvastatin 20mg tablet PO SCH (07:09)
[2021-11-15] MEDS: amLODIPine 5mg tablet PO SCH (07:09)
[2021-11-15] MEDS: aspirin 81mg, enteric-coated 1 TAB TABLET.DR PO SCH (07:09)
[2021-11-15] MEDS: tamsulosin 0.4mg capsule PO SCH (07:09)
[2021-11-15] MEDS: JUVEN Smoothie Arginine/Glut./Ca2+Bmb (Juven 19.3pkt) 240ml cup PO SCH ×2 (07:10→17:38)
[2021-11-15] MEDS: enoxaparin 30mg/0.3ml syringe SQ SCH ×2 (07:10→19:59)
[2021-11-15] MEDS: losartan 50mg tablet PO SCH (07:10)
[2021-11-15] MEDS: K and/or MAG REPLACEMENT MC SCH ×2 (07:11→20:00)
--- NOTE | 2021-11-15 13:39 | NUR ---
PRESSURE ULCER EDUCATION: DEFINITION: A pressure ulcer is an area of skin that breaks down when you stay in one position too long. The constant pressure against the skin reduces the blood flow to that area and the affected tissue dies. CAUSES: "Being bedridden or in a wheelchair "Fragile skin "Having a chronic condition, such as diabetes or vascular disease "Inability to move certain parts of your body without assistance "Older age "Incontinence of urine or stool SYMPTOMS: "A reddened area that DOES NOT turn white when pressed on - this can be the beginning of a pressure ulcer "A blister, deep sore or a crater - these can be advanced pressure ulcers FIRST AID: "Relieve the pressure on this area "Keep the area clean and dry "Call your primary doctor if you see any of the above symptoms "DO NOT massage the area "DO NOT use a donut shaped or ring shaped pillow- these actually interfere with the blood flow and cause complications PREVENTION: "Check for pressure ulcers everyday "Change position at least every two hours to relieve pressure "Use items that help relieve pressure- pillows, sheepskin, foam padding, and powders. "Keep skin clean and dry "Eat healthy well balanced meals "Exercise daily IF YOU SEE ANY OF THESE SYMPTOMS WHILE IN THE HOSPITAL - TELL YOUR NURSE IMMEDIATELY. IF YOU SEE ANY OF THESE SYMPTOMS WHILE AT HOME OR HAVE ANY QUESTIONS OR CONCERNS ABOUT PRESSURE ULCERS - CALL YOUR PRIMARY DOCTOR IMMEDIATELY. Addendum: 11/15/21 at 1340 by Anna Benedict LVN Amended: Links added.
--- NOTE | 2021-11-15 14:19 | NUR ---
Patient in room ICU 2039. I have received report from Rashi BEASLEY ICU and had the opportunity to ask questions and assume patient care.
[2021-11-15] MEDS ORDERED: benzocaine/menthol oral lozeng 1 EACH BOX MM PRN (17:45)
[2021-11-15] MEDS ORDERED: HALLS - SOOTHE MENTHOL 1.8 MG cough drop LOZENGE MM PRN (18:28)
[2021-11-15] MEDS: ondansetron/PF 4mg/2ml inj IV PRN (19:49)
[2021-11-15] MEDS: HYDROcodone/acetaminophen 10/325mg tab PO PRN (19:50)
[2021-11-15] MEDS: insulin glargine (Lantus) pen - multi-dose SQ SCH (21:00)
[2021-11-15] MEDS ORDERED: potassium Cl 20 mEq SR tablet PO PRN ×2 (21:50)
[2021-11-15] MEDS ORDERED: potassium CL 10mEq/100ml bag 100 ML IV PRN (21:50)
[2021-11-15] MEDS ORDERED: magnesium Cl slow-release 64mg tablet PO PRN (21:50)
[2021-11-15] MEDS ORDERED: magnesium 4gm in 100ml NS 100 ML IV PRN (21:50)
[2021-11-16] VITALS (9 sets, daily range): BP systolic 112–164; BP diastolic 51–84
[2021-11-16] MEDS: normal saline 1000ml 1,000 ML IV SCH (01:10)
[2021-11-16] MEDS: ceFAZolin/D5W- 1GM premix 50 ML IV SCH ×2 (02:35→07:59)
[2021-11-16] MEDS: acetaminophen 325mg tablet PO PRN (02:37)
--- NOTE | 2021-11-16 06:53 | NUR ---
Patient in room PCU 3013. I have received report from Gen BEASLEY Traveler and had the opportunity to ask questions and assume patient care.
[2021-11-16 07:20] LABS: BASOPHILS # (AUTO) 0.1 X10'3 (0-0.2); BASOPHILS % (AUTO) 0.4 % (0-1); EOSINOPHILS # (AUTO) 0.1 X10'3 (0-0.9); EOSINOPHILS % (AUTO) 0.5 % (0-6); HEMATOCRIT 26.4 % (42.0-52.0); HEMOGLOBIN 8.7 g/dl (14.0-17.9); LYMPHOCYTES # (AUTO) 2.5 X10'3 (1.1-4.8); MEAN CORPUSCULAR HGB CONC 32.9 g/dL (33.0-36.5); MEAN CORPUSCULAR VOLUME 91.1 FL (78-98); MEAN PLATELET VOLUME 9.1 FL (7.4-10.4); MONOCYTES # (AUTO) 2.1 X10'3 (0-0.9); MONOCYTES % (AUTO) 15.9 % (2-12); NEUTROPHILS # (AUTO) 8.4 X10'3 (1.8-7.7); NEUTROPHILS % (AUTO) 64.2 % (42-75); PLATELET COUNT 213 X10'3 (140-440); RED CELL DISTRIBUTION WIDTH 13.5 % (11.5-14.5); WHITE BLOOD COUNT 13.1 X10'3 (4.5-11.0)
[2021-11-16 07:32] LABS: ALANINE AMINOTRANSFERASE 27 U/L (12-78); ALBUMIN 2.3 G/DL (3.4-5.0); ALBUMIN/GLOBULIN RATIO 0.7 (1.1-1.5); ALKALINE PHOSPHATASE 54 IU/L (46-116); ANION GAP 6 (8-16); ASPARTATE AMINO TRANSFERASE 18 U/L (10-37); BILIRUBIN,TOTAL 0.2 MG/DL (0.1-1.0); BLOOD UREA NITROGEN 43 MG/DL (7-18); BUN/CREATININE RATIO 17.7 (5.4-32.0); CALCIUM 7.6 MG/DL (8.5-10.1); CHLORIDE 102 MMOL/L (99-107); CREATININE 2.43 MG/DL (0.60-1.10); GLUCOSE 270 MG/DL (70-104); MAGNESIUM 2.7 MG/DL (1.5-2.4); PHOSPHORUS 4.4 MG/DL (2.3-4.5); POTASSIUM 4.9 MMOL/L (3.5-5.1); SODIUM 134 MMOL/L (135-145); TOTAL CARBON DIOXIDE 26.2 MMOL/L (24-32); TOTAL PROTEIN 5.5 G/DL (6.4-8.2); eGFR 27 ML/MIN
[2021-11-16] MEDS: JUVEN Smoothie Arginine/Glut./Ca2+Bmb (Juven 19.3pkt) 240ml cup PO SCH ×2 (07:46→17:30)
[2021-11-16] MEDS: docusate sod 100mg capsule PO SCH ×2 (07:46→20:23)
[2021-11-16] MEDS: tamsulosin 0.4mg capsule PO SCH (07:47)
[2021-11-16] MEDS: gabapentin 300mg capsule PO SCH ×2 (07:47→20:23)
[2021-11-16] MEDS: atorvastatin 20mg tablet PO SCH (07:48)
[2021-11-16] MEDS: carvedilol 6.25mg tablet PO SCH (07:48)
[2021-11-16] MEDS: aspirin 81mg, enteric-coated 1 TAB TABLET.DR PO SCH (07:48)
[2021-11-16] MEDS: HYDROcodone/acetaminophen 5mg/325mg tablet PO PRN (07:49)
[2021-11-16] MEDS: enoxaparin 30mg/0.3ml syringe SQ SCH (07:50)
[2021-11-16] MEDS: K and/or MAG REPLACEMENT MC SCH ×2 (08:00→20:00)
[2021-11-16] MEDS: losartan 50mg tablet PO SCH (08:00)
[2021-11-16] MEDS: amLODIPine 5mg tablet PO SCH (08:00)
[2021-11-16 08:24] LABS: LARGE PLATELETS FEW; PLATELET ESTIMATE NORMAL; TOTAL CELLS COUNTED 100
[2021-11-16] MEDS: insulin Lispro (HumaLOG) vial - multi-dose SQ SCH (10:00)
[2021-11-16] MEDS: HYDROcodone/acetaminophen 10/325mg tab PO PRN (13:44)
[2021-11-16] MEDS: ondansetron/PF 4mg/2ml inj IV PRN (15:05)
--- NOTE | 2021-11-16 15:25 | NUR ---
Pt 's daughter came to the nursing station and stated pt was not breathing. Upon assessing, pt was disoriented, pale and diaphoretic. Pt was responding with a bit of a delay. BP was elevated 190's, hr 80. I requested to call a rapid, charge nurse, Дмитрий decided that it was not needed. He ordered a [address] childs, who ordered labs and cancelled coreg and lovenox changed it to Daily instead of BID. Pt was back to his baseline within 5 minutes. Family were agitated, crying and I asked to to step out of the room while I did a complete assessment. Pulses were examined and Doppler. pt stated he was nauseated and started to vomit. Zofran was given immediately. pt was A & o x4. Dr Montero was called to assess. PA for cardiac came and assessed. Dr Puentes came anyways. Dr Puentes stated he believe pt had an episode of syncope/bradicardia. He spoke to Dr Arceo and it was agreed to get an ecco and a caratoid ultrasound. pt will have a Fen-Pop on left leg on saturday.
--- NOTE | 2021-11-16 16:16 | NUR ---
Message: Donald Jiangosmin berman# [phone]- Pt was given Zofran 1hr ago, still nauseated/vomiting.Could I get an order for Compazine in case is needed. bp 142/61 HR81, 98% 1L, RR17. (fyi-did not administered hydralazine). Marilyn Eldridge
--- NOTE | 2021-11-16 16:35 | NUR ---
Problems reprioritized. Patient report given, questions answered & plan of care reviewed with Elzbieta BEASLEY.
[2021-11-16] MEDS ORDERED: gabapentin 300mg capsule PO SCH (20:00)
[2021-11-16 20:44] LABS: ALANINE AMINOTRANSFERASE 25 U/L (12-78); ALBUMIN 2.4 G/DL (3.4-5.0); ALBUMIN/GLOBULIN RATIO 0.7 (1.1-1.5); ALKALINE PHOSPHATASE 64 IU/L (46-116); ANION GAP 9 (8-16); ASPARTATE AMINO TRANSFERASE 15 U/L (10-37); BILIRUBIN,TOTAL 0.2 MG/DL (0.1-1.0); BLOOD UREA NITROGEN 48 MG/DL (7-18); CALCIUM 8.1 MG/DL (8.5-10.1); CHLORIDE 101 MMOL/L (99-107); CREATININE 2.66 MG/DL (0.60-1.10); GLUCOSE 295 MG/DL (70-104); POTASSIUM 5.3 MMOL/L (3.5-5.1); SODIUM 134 MMOL/L (135-145); TOTAL CARBON DIOXIDE 23.6 MMOL/L (24-32); TOTAL PROTEIN 5.8 G/DL (6.4-8.2); eGFR 24 ML/MIN
[2021-11-16] MEDS: insulin glargine (Lantus) pen - multi-dose SQ SCH (21:00)
[2021-11-17] MEDS: hyDRALAzine 10mg tablet PO SCH ×3 (00:58→17:05)
[2021-11-17 02:00] VITALS: BP 147/64
[2021-11-17] MEDS: HYDROcodone/acetaminophen 5mg/325mg tablet PO PRN ×2 (05:58→10:58)
[2021-11-17 06:00] VITALS: BP 156/67
--- NOTE | 2021-11-17 06:59 | NUR ---
PAGER ID: [phone] MESSAGE: Kalli Tele [phone] Re: Donald Robbins [phone] please call bladder scanned patient shows 800ml's in bladder had not voided all night Addendum: 11/17/21 at 0702 by Kalli Juarez RN Placed linares catheter for retention per MD kohli
[2021-11-17 07:03] LABS: BASOPHILS # (AUTO) 0.1 X10'3 (0-0.2); BASOPHILS % (AUTO) 0.4 % (0-1); EOSINOPHILS # (AUTO) 0.1 X10'3 (0-0.9); HEMATOCRIT 25.7 % (42.0-52.0); HEMOGLOBIN 8.5 g/dl (14.0-17.9); LYMPHOCYTES # (AUTO) 2.3 X10'3 (1.1-4.8); LYMPHOCYTES % (AUTO) 18.1 % (21-51); MEAN CORPUSCULAR HEMOGLOBIN 30.2 PG (27.0-31.0); MEAN CORPUSCULAR VOLUME 91.6 FL (78-98); MEAN PLATELET VOLUME 9.3 FL (7.4-10.4); MONOCYTES # (AUTO) 1.7 X10'3 (0-0.9); MONOCYTES % (AUTO) 13.3 % (2-12); NEUTROPHILS # (AUTO) 8.6 X10'3 (1.8-7.7); NEUTROPHILS % (AUTO) 67.2 % (42-75); PLATELET COUNT 223 X10'3 (140-440); RED BLOOD COUNT 2.81 X10'6 (4.70-6.10); RED CELL DISTRIBUTION WIDTH 13.1 % (11.5-14.5); WHITE BLOOD COUNT 12.8 X10'3 (4.5-11.0)
--- NOTE | 2021-11-17 07:03 | NUR ---
Problems reprioritized. Patient report given, questions answered & plan of care reviewed with
[2021-11-17] MEDS ORDERED: LIDOcaine 2% 10ml TOPICAL JELLY (Urojet) TP ONE (07:05)
[2021-11-17 07:17] LABS: ALANINE AMINOTRANSFERASE 21 U/L (12-78); ALBUMIN 2.3 G/DL (3.4-5.0); ALBUMIN/GLOBULIN RATIO 0.7 (1.1-1.5); ALKALINE PHOSPHATASE 60 IU/L (46-116); ANION GAP 10 (8-16); ASPARTATE AMINO TRANSFERASE 13 U/L (10-37); BILIRUBIN,TOTAL 0.2 MG/DL (0.1-1.0); BLOOD UREA NITROGEN 46 MG/DL (7-18); BUN/CREATININE RATIO 21.2 (5.4-32.0); CALCIUM 7.8 MG/DL (8.5-10.1); CHLORIDE 101 MMOL/L (99-107); CHOL/HDL RATIO 2.6 (0.00-4.99); CHOLESTEROL 86 MG/DL (0-200); CREATININE 2.17 MG/DL (0.60-1.10); GLUCOSE 268 MG/DL (70-104); HDL CHOLESTEROL 33 MG/DL (35-60); LDL CHOLESTEROL 35 MG/DL (50-100); MAGNESIUM 2.8 MG/DL (1.5-2.4); PHOSPHORUS 3.5 MG/DL (2.3-4.5); POTASSIUM 4.9 MMOL/L (3.5-5.1); SODIUM 135 MMOL/L (135-145); TOTAL CARBON DIOXIDE 24.2 MMOL/L (24-32); TOTAL PROTEIN 5.8 G/DL (6.4-8.2); TRIGLYCERIDES 114 MG/DL (20-135); eGFR 31 ML/MIN
[2021-11-17] MEDS: JUVEN Smoothie Arginine/Glut./Ca2+Bmb (Juven 19.3pkt) 240ml cup PO SCH ×2 (07:30→17:59)
[2021-11-17] MEDS: clopidogrel 75mg tablet PO SCH (07:38)
[2021-11-17] MEDS: atorvastatin 20mg tablet PO SCH (07:38)
[2021-11-17] MEDS: docusate sod 100mg capsule PO SCH ×2 (07:38→22:40)
[2021-11-17] MEDS: tamsulosin 0.4mg capsule PO SCH (07:39)
[2021-11-17] MEDS: amLODIPine 5mg tablet PO SCH (07:39)
[2021-11-17] MEDS: aspirin 81mg, enteric-coated 1 TAB TABLET.DR PO SCH (07:39)
[2021-11-17] MEDS: enoxaparin 30mg/0.3ml syringe SQ SCH (07:40)
[2021-11-17] MEDS ORDERED: amLODIPine 5mg tablet PO SCH (08:00)
[2021-11-17] MEDS: K and/or MAG REPLACEMENT MC SCH ×2 (08:00→20:00)
[2021-11-17 08:14] LABS: CLARITY,URINE SLIGHTLY CLOUDY (Clear); COLOR,URINE YELLOW (Yellow); GLUCOSE, URINE 500 mg/dl (Neg); KETONES,URINE NEGATIVE (Neg); LEUKOCYTE ESTERASE ,URINE NEGATIVE (Neg); NITRITES, URINE NEGATIVE (Neg); OCCULT BLOOD,URINE TRACE-INTACT (Neg); PH,URINE 5.5 (4.8-8.0); PROTEIN,URINE TRACE mg/dl (Neg); UROBILINOGEN,URINE 0.2 E.U/dL (0.2-1.0)
[2021-11-17 08:18] LABS: UA COLLECTION TYPE FOLEY CATH
[2021-11-17 08:26] LABS: BACTERIA,URINE FEW /HPF (Neg); HYALINE CASTS 0-3 /LPF (NEGATIVE); MUCUS STRANDS NONE SEEN /LPF (Neg); RBC,URINE 0-2 /HPF (0-2); RENAL CELLS, URINE FEW /HPF; SQUAMOUS EPITHELIAL CELL,UR NONE SEEN /LPF (FEW); WBC,URINE 0-4 /HPF (0-4)
[2021-11-17] MEDS: insulin Lispro (HumaLOG) vial - multi-dose SQ SCH ×3 (09:54→22:59)
[2021-11-17 11:00] VITALS: BP 143/63
[2021-11-17 15:00] VITALS: BP 146/65
--- NOTE | 2021-11-17 16:44 | NUR ---
Message: Kalli [facility] [phone] Re: Lc [id number] Patient very sleepy have questions/ Concerns?
--- NOTE | 2021-11-17 16:54 | NUR ---
Paged Respiratory for ABG's per MD orders
[2021-11-17] MEDS: normal saline 1000ml 1,000 ML IV SCH (17:10)
--- NOTE | 2021-11-17 17:38 | NUR ---
Notified Security that per policy and Dr Marin only 2 visitors for patient and they have to be the same visitors. Per Henna it will be her and her daughter Olga Lucas
--- NOTE | 2021-11-17 18:00 | NUR ---
Patient in room PCU 3013. I have received report from Kalli and had the opportunity to ask questions and assume patient care.
[2021-11-17 18:09] LABS: ABG HCO3 20.9 mmol/L (22.0-26.0); ABG OXYGEN SATURATION 80.8 % (94-97); ABG PCO2 (T) 42.2 mmHg (35.0-48.0); ABG PO2 (T) 45.5 mmHg (75.0-100.0); ALLEN'S TEST POSITIVE; FCOHb 0.2 % (0.0-3.9); FMetHb 0.1 % (0.0-1.5); FO2Hb 80.6 % (94-97); TOTAL HEMOGLOBIN 9.1 G/dl (14.0-18.0)
--- NOTE | 2021-11-17 18:11 | NUR ---
Respiratory called with ABG results however they were venous. Spoke to elevator constructor Ashley and she stated to have them redraw
[2021-11-17 18:42] LABS: ABG BASE EXCESS -3.3 mmol/L (-2.0-2.0); ABG HCO3 22.8 mmol/L (22.0-26.0); ABG OXYGEN SATURATION 92.5 % (94-97); ABG PCO2 (T) 50.1 mmHg (35.0-48.0); ABG PO2 (T) 78.1 mmHg (75.0-100.0); ALLEN'S TEST POSITIVE; FCOHb 0.2 % (0.0-3.9); FLOW 2 L/min; FMetHb 0.3 % (0.0-1.5); PATIENT TEMPERATURE 39.2; TOTAL HEMOGLOBIN 8.7 G/dl (14.0-18.0)
--- NOTE | 2021-11-17 18:50 | NUR ---
Message: Kalli [facility] [phone] Re: Rosendo 3013B ABG Temp of 99.3 Please call
[2021-11-17] MEDS: piperacillin/tazo 3.375gm/50ml 50 ML IV SCH (19:10)
--- NOTE | 2021-11-17 19:15 | NUR ---
paged xray and Respiratory to place patient on BIPAP
--- NOTE | 2021-11-17 19:17 | NUR ---
Lab will send up lab veronica to draw blood cultures
--- NOTE | 2021-11-17 19:18 | NUR ---
Problems reprioritized. Patient report given, questions answered & plan of care reviewed with Elzbieta BEASLEY and material processor Penny .
[2021-11-17] MEDS: VANCOMYCIN 750MG IV in NS 250 ML IV SCH ×2 (20:00→22:42)
[2021-11-17 20:37] LABS: ABG BASE EXCESS -3.9 mmol/L (-2.0-2.0); ABG HCO3 21.4 mmol/L (22.0-26.0); ABG OXYGEN SATURATION 96.1 % (94-97); ABG PCO2 (T) 41.5 mmHg (35.0-48.0); ABG PO2 (T) 91.8 mmHg (75.0-100.0); ALLEN'S TEST POSITIVE; FCOHb 0.3 % (0.0-3.9); FMetHb 0.4 % (0.0-1.5); FO2Hb 95.4 % (94-97); RESPIRATORY RATE 12 b/min; TOTAL HEMOGLOBIN 8.7 G/dl (14.0-18.0)
[2021-11-17] MEDS: insulin glargine (Lantus) pen - multi-dose SQ SCH (22:58)
[2021-11-18] MEDS: ondansetron/PF 4mg/2ml inj IV PRN (00:40)
[2021-11-18 06:00] VITALS: BP 162/76
[2021-11-18] MEDS: JUVEN Smoothie Arginine/Glut./Ca2+Bmb (Juven 19.3pkt) 240ml cup PO SCH ×3 (07:30→19:30)
[2021-11-18] MEDS: K and/or MAG REPLACEMENT MC SCH ×2 (08:00→18:41)
[2021-11-18] MEDS: piperacillin/tazo 3.375gm/50ml 50 ML IV SCH ×3 (08:00→17:00)
[2021-11-18 08:18] LABS: BASOPHILS % (AUTO) 0.3 % (0-1); EOSINOPHILS # (AUTO) 0.1 X10'3 (0-0.9); EOSINOPHILS % (AUTO) 1.1 % (0-6); HEMATOCRIT 24.2 % (42.0-52.0); HEMOGLOBIN 8.1 g/dl (14.0-17.9); LYMPHOCYTES # (AUTO) 1.9 X10'3 (1.1-4.8); LYMPHOCYTES % (AUTO) 15.3 % (21-51); MEAN CORPUSCULAR HEMOGLOBIN 30.4 PG (27.0-31.0); MEAN CORPUSCULAR HGB CONC 33.3 g/dL (33.0-36.5); MEAN CORPUSCULAR VOLUME 91.1 FL (78-98); MEAN PLATELET VOLUME 8.9 FL (7.4-10.4); MONOCYTES # (AUTO) 1.6 X10'3 (0-0.9); MONOCYTES % (AUTO) 12.9 % (2-12); NEUTROPHILS # (AUTO) 8.7 X10'3 (1.8-7.7); NEUTROPHILS % (AUTO) 70.4 % (42-75); PLATELET COUNT 264 X10'3 (140-440); RED BLOOD COUNT 2.66 X10'6 (4.70-6.10); WHITE BLOOD COUNT 12.4 X10'3 (4.5-11.0)
[2021-11-18] MEDS: docusate sod 100mg capsule PO SCH ×2 (08:30→22:13)
[2021-11-18] MEDS: tamsulosin 0.4mg capsule PO SCH (08:44)
[2021-11-18 08:45] LABS: ALANINE AMINOTRANSFERASE 18 U/L (12-78); ALBUMIN 2.1 G/DL (3.4-5.0); ALBUMIN/GLOBULIN RATIO 0.6 (1.1-1.5); ALKALINE PHOSPHATASE 59 IU/L (46-116); ANION GAP 8 (8-16); ASPARTATE AMINO TRANSFERASE 11 U/L (10-37); BILIRUBIN,TOTAL 0.2 MG/DL (0.1-1.0); BLOOD UREA NITROGEN 48 MG/DL (7-18); BUN/CREATININE RATIO 26.2 (5.4-32.0); CALCIUM 7.5 MG/DL (8.5-10.1); CHLORIDE 101 MMOL/L (99-107); CREATININE 1.83 MG/DL (0.60-1.10); GLUCOSE 261 MG/DL (70-104); MAGNESIUM 3.1 MG/DL (1.5-2.4); PHOSPHORUS 2.9 MG/DL (2.3-4.5); POTASSIUM 4.8 MMOL/L (3.5-5.1); SODIUM 134 MMOL/L (135-145); TOTAL CARBON DIOXIDE 25.1 MMOL/L (24-32); TOTAL PROTEIN 5.6 G/DL (6.4-8.2); eGFR 38 ML/MIN
[2021-11-18] MEDS: amLODIPine 5mg tablet PO SCH (08:45)
[2021-11-18] MEDS: hyDRALAzine 10mg tablet PO SCH ×3 (08:45→17:04)
[2021-11-18] MEDS: aspirin 81mg, enteric-coated 1 TAB TABLET.DR PO SCH (08:45)
[2021-11-18] MEDS: clopidogrel 75mg tablet PO SCH (08:45)
[2021-11-18] MEDS: atorvastatin 20mg tablet PO SCH (08:45)
[2021-11-18] MEDS: normal saline 1000ml 1,000 ML IV SCH (08:47)
[2021-11-18] MEDS: enoxaparin 30mg/0.3ml syringe SQ SCH (08:48)
[2021-11-18 11:00] VITALS: BP 150/70
--- NOTE | 2021-11-18 11:39 | NUR ---
Reassessment: Pt has been overall eating well, documented with mostly 75-100% PO intake, however down to 0% PO intake since dinner 11/16. Pt receiving a Oswaldo smoothie BIDBD of which pt documented with average 75% PO intake of. Per physician note pt with lethargy/drowsy 11/17 with a syncopal episode 11/16, likely impacting PO intake. Pending documentation of PO intake for today however hopeful that PO intake will increase with improving mentation. LBM 11/14, receiving routine bowel care. D/w dietary to send power pudding with next meal to assist with bowel regularity. Will continue to follow closely and monitor need for further nutrition intervention. Recommendations: 1. Continue carb control diet 2. Oswaldo Smoothies BIDBD; monitor need for additional ONS 3. Routine bowel care 4. Scaled wt this admit; subsequent weekly scaled weights Addendum: 11/18/21 at [address] Amended: Links added.
[2021-11-18] MEDS: insulin Lispro (HumaLOG) vial - multi-dose SQ SCH ×3 (14:04→22:38)
[2021-11-18 17:00] VITALS: BP 140/70
[2021-11-18 18:00] VITALS: BP 152/76
[2021-11-18 22:00] VITALS: BP 146/67
[2021-11-18] MEDS: magnesium hydroxide 30ml (MOM) UD suspension PO PRN (22:13)
[2021-11-18] MEDS: VANCOMYCIN 750MG IV in NS 250 ML IV SCH (22:14)
[2021-11-18] MEDS: insulin glargine (Lantus) pen - multi-dose SQ SCH (22:36)
[2021-11-19] VITALS (8 sets, daily range): BP systolic 105–174; BP diastolic 62–81
--- NOTE | 2021-11-19 04:00 | NUR ---
Patient 02:45 AM Troponin 124, called MD immediately, MD now new order, continue to closely monitor.
[2021-11-19] MEDS: normal saline 1000ml 1,000 ML IV SCH ×3 (04:15→16:28)
[2021-11-19 06:37] LABS: ALANINE AMINOTRANSFERASE 17 U/L (12-78); ALBUMIN 2.1 G/DL (3.4-5.0); ALBUMIN/GLOBULIN RATIO 0.6 (1.1-1.5); ALKALINE PHOSPHATASE 64 IU/L (46-116); ANION GAP 8 (8-16); ASPARTATE AMINO TRANSFERASE 15 U/L (10-37); BILIRUBIN,TOTAL 0.5 MG/DL (0.1-1.0); BLOOD UREA NITROGEN 36 MG/DL (7-18); BUN/CREATININE RATIO 23.5 (5.4-32.0); CHLORIDE 103 MMOL/L (99-107); CREATININE 1.53 MG/DL (0.60-1.10); GLUCOSE 190 MG/DL (70-104); POTASSIUM 4.3 MMOL/L (3.5-5.1); SODIUM 138 MMOL/L (135-145); TOTAL CARBON DIOXIDE 27.2 MMOL/L (24-32); TOTAL PROTEIN 5.6 G/DL (6.4-8.2); eGFR 46 ML/MIN
[2021-11-19 06:40] LABS: MAGNESIUM 3.2 MG/DL (1.5-2.4); PHOSPHORUS 2.5 MG/DL (2.3-4.5)
--- NOTE | 2021-11-19 06:45 | NUR ---
Did Right leg surgical wound dressings change.
[2021-11-19 06:46] LABS: BASOPHILS # (AUTO) 0.1 X10'3 (0-0.2); BASOPHILS % (AUTO) 0.6 % (0-1); EOSINOPHILS # (AUTO) 0.4 X10'3 (0-0.9); EOSINOPHILS % (AUTO) 3.5 % (0-6); HEMATOCRIT 25.3 % (42.0-52.0); HEMOGLOBIN 8.5 g/dl (14.0-17.9); LYMPHOCYTES # (AUTO) 1.4 X10'3 (1.1-4.8); LYMPHOCYTES % (AUTO) 10.5 % (21-51); MEAN CORPUSCULAR HEMOGLOBIN 30.1 PG (27.0-31.0); MEAN CORPUSCULAR HGB CONC 33.5 g/dL (33.0-36.5); MEAN PLATELET VOLUME 8.8 FL (7.4-10.4); MONOCYTES # (AUTO) 1.7 X10'3 (0-0.9); MONOCYTES % (AUTO) 13.2 % (2-12); NEUTROPHILS # (AUTO) 9.3 X10'3 (1.8-7.7); NEUTROPHILS % (AUTO) 72.2 % (42-75); PLATELET COUNT 317 X10'3 (140-440); RED BLOOD COUNT 2.81 X10'6 (4.70-6.10); RED CELL DISTRIBUTION WIDTH 13.1 % (11.5-14.5); WHITE BLOOD COUNT 12.8 X10'3 (4.5-11.0)
--- NOTE | 2021-11-19 07:54 | NUR ---
PAGED DR ABBOTT RE: Message: FANNY SANCHEZ. PT C/O CHEST PAIN. STARTED YESTERDAY. CRITICAL TROP 124 AND 113 TODAY. BP 174/71 HR 91. NOTHING NOTED ON TELE MONITOR PER ENVIRONMENTAL INTERN. DARRELL [phone] TELE
[2021-11-19] MEDS: hyDRALAzine 10mg tablet PO SCH ×3 (08:00→16:25)
[2021-11-19] MEDS: K and/or MAG REPLACEMENT MC SCH ×2 (08:00→20:00)
[2021-11-19] MEDS: docusate sod 100mg capsule PO SCH ×2 (08:00→20:08)
[2021-11-19] MEDS: ondansetron/PF 4mg/2ml inj IV PRN (08:56)
[2021-11-19] MEDS: piperacillin/tazo 3.375gm/50ml 50 ML IV SCH ×4 (09:01→23:58)
[2021-11-19] MEDS: insulin Lispro (HumaLOG) vial - multi-dose SQ SCH ×3 (09:17→20:01)
[2021-11-19] MEDS: proCHLORperazine 10 MG/2 ml inj IV PRN (12:20)
[2021-11-19 13:26] LABS: % IRON SATURATION 11 % (11-46); IRON 16 UG/DL (53-167); TOTAL IRON BINDING CAPACITY 142 UG/DL (259-388)
[2021-11-19 13:44] LABS: FERRITIN 103 NG/ML (26-388)
[2021-11-19] MEDS: clopidogrel 75mg tablet PO SCH (13:58)
[2021-11-19] MEDS: tamsulosin 0.4mg capsule PO SCH (13:58)
[2021-11-19] MEDS: amLODIPine 5mg tablet PO SCH (13:58)
[2021-11-19] MEDS: atorvastatin 20mg tablet PO SCH (13:58)
[2021-11-19] MEDS: aspirin 81mg, enteric-coated 1 TAB TABLET.DR PO SCH (13:59)
[2021-11-19] MEDS: enoxaparin 30mg/0.3ml syringe SQ SCH (13:59)
[2021-11-19] MEDS: sodium ferric gluc complex inj 125 MG in normal saline 100ml IV soln 100 ML IV SCH (14:45)
[2021-11-19] MEDS: JUVEN Smoothie Arginine/Glut./Ca2+Bmb (Juven 19.3pkt) 240ml cup PO SCH (17:31)
[2021-11-19] MEDS: lactose-reduced food (Ensure Enlive) - 237ml bottle PO SCH ×2 (18:00→18:13)
--- NOTE | 2021-11-19 18:29 | NUR ---
Problems reprioritized. Patient report given, questions answered & plan of care reviewed with LEIGH BEASLEY.
--- NOTE | 2021-11-19 18:45 | NUR ---
PAGED DR ABBOTT RE: Message: FANNY SANCHEZ. JUST REALIZED NO ORDER FOR ANTON SCAN WAS PUT IN FOR TOMORROW. DARRELL TELE [phone]
[2021-11-19] MEDS ORDERED: diltiazem 5mg/ml 5ml inj. IV ONE ×2 (19:15→21:55)
--- NOTE | 2021-11-19 20:00 | NUR ---
Cardizem 10 mg IV Push x 1, if HR >100 in 40 minutes later Cardizem 15 mg IV push x 1, if heart rate > 100 in 40 minutes then Cardizem 5 mg/Hour. Imdur 30 mg extended release one time, Patient BP and Heart is controlled well, see V/S section.
[2021-11-19] MEDS: insulin glargine (Lantus) pen - multi-dose SQ SCH (21:45)
[2021-11-19] MEDS ORDERED: vancomycin/NS 1 GM ADD-VANTAGE 250 ML IV SCH (22:00)
[2021-11-19] MEDS ORDERED: aminophylline 500mg/20ml vial IV PRN (22:15)
[2021-11-19] MEDS ORDERED: nitroGLYCERIN 0.4mg SUBLingual tab SL PRN (22:15)
[2021-11-19] MEDS ORDERED: metoprolol tartrate 1mg/ml inj IV PRN (22:15)
[2021-11-19] MEDS ORDERED: regadenoson 0.4mg/5ml syringe IV PRN (22:15)
[2021-11-19] MEDS ORDERED: isosorbide mononitrate 30mg tab.SR.24H PO ONE (22:20)
[2021-11-20] VITALS (14 sets, daily range): BP systolic 109–146; BP diastolic 47–75
[2021-11-20] MEDS: hyDRALAzine 10mg tablet PO SCH ×3 (01:22→16:27)
[2021-11-20] MEDS: proCHLORperazine 10 MG/2 ml inj IV PRN (04:54)
--- NOTE | 2021-11-20 05:35 | NUR ---
Did right leg surgical dressings change related to it is pink color, no complaint of pain, no complaint of itching at surgical wound area, did Green Catheter sabra care.
[2021-11-20 06:10] LABS: BASOPHILS # (AUTO) 0.1 X10'3 (0-0.2); BASOPHILS % (AUTO) 0.7 % (0-1); EOSINOPHILS # (AUTO) 0.1 X10'3 (0-0.9); EOSINOPHILS % (AUTO) 1.1 % (0-6); HEMATOCRIT 23.8 % (42.0-52.0); LYMPHOCYTES # (AUTO) 1.1 X10'3 (1.1-4.8); LYMPHOCYTES % (AUTO) 8.5 % (21-51); MEAN CORPUSCULAR HEMOGLOBIN 30.3 PG (27.0-31.0); MEAN CORPUSCULAR HGB CONC 33.5 g/dL (33.0-36.5); MEAN CORPUSCULAR VOLUME 90.5 FL (78-98); MEAN PLATELET VOLUME 8.8 FL (7.4-10.4); MONOCYTES # (AUTO) 1.5 X10'3 (0-0.9); MONOCYTES % (AUTO) 11.8 % (2-12); NEUTROPHILS # (AUTO) 9.7 X10'3 (1.8-7.7); NEUTROPHILS % (AUTO) 77.9 % (42-75); PLATELET COUNT 330 X10'3 (140-440); RED BLOOD COUNT 2.63 X10'6 (4.70-6.10); RED CELL DISTRIBUTION WIDTH 13.3 % (11.5-14.5); WHITE BLOOD COUNT 12.5 X10'3 (4.5-11.0)
[2021-11-20 06:33] LABS: ALANINE AMINOTRANSFERASE 14 U/L (12-78); ALBUMIN/GLOBULIN RATIO 0.6 (1.1-1.5); ALKALINE PHOSPHATASE 62 IU/L (46-116); ANION GAP 8 (8-16); ASPARTATE AMINO TRANSFERASE 17 U/L (10-37); BILIRUBIN,TOTAL 0.5 MG/DL (0.1-1.0); BLOOD UREA NITROGEN 34 MG/DL (7-18); BUN/CREATININE RATIO 19.8 (5.4-32.0); CALCIUM 7.6 MG/DL (8.5-10.1); CHLORIDE 104 MMOL/L (99-107); CREATININE 1.72 MG/DL (0.60-1.10); GLUCOSE 240 MG/DL (70-104); MAGNESIUM 2.9 MG/DL (1.5-2.4); PHOSPHORUS 2.6 MG/DL (2.3-4.5); POTASSIUM 4.4 MMOL/L (3.5-5.1); SODIUM 137 MMOL/L (135-145); TOTAL CARBON DIOXIDE 25.2 MMOL/L (24-32); TOTAL PROTEIN 5.5 G/DL (6.4-8.2); eGFR 40 ML/MIN
--- NOTE | 2021-11-20 06:41 | NUR ---
Patient this morning at 05:00 AM told this nurse I am thirst, can I drink water, this nurse told him no you cannot drink any water because after midnight is NPO and doctor this morning will do some procedure for you, this is why you cannot drink any water after midnight, AM nurse notified for this conversation.
[2021-11-20] MEDS: JUVEN Smoothie Arginine/Glut./Ca2+Bmb (Juven 19.3pkt) 240ml cup PO SCH ×2 (07:30→18:29)
[2021-11-20] MEDS: aspirin 81mg, enteric-coated 1 TAB TABLET.DR PO SCH (07:57)
[2021-11-20] MEDS: atorvastatin 20mg tablet PO SCH (07:58)
[2021-11-20] MEDS: amLODIPine 5mg tablet PO SCH (07:59)
[2021-11-20] MEDS: enoxaparin 30mg/0.3ml syringe SQ SCH (08:00)
[2021-11-20] MEDS: K and/or MAG REPLACEMENT MC SCH ×2 (08:00→20:00)
[2021-11-20] MEDS: isosorbide mononitrate 30mg tab.SR.24H PO SCH (08:00)
[2021-11-20] MEDS: lactose-reduced food (Ensure Enlive) - 237ml bottle PO SCH ×3 (08:00→18:29)
[2021-11-20] MEDS: piperacillin/tazo 3.375gm/50ml 50 ML IV SCH ×2 (08:00→16:36)
[2021-11-20] MEDS: docusate sod 100mg capsule PO SCH ×2 (08:01→21:50)
[2021-11-20] MEDS: tamsulosin 0.4mg capsule PO SCH (08:01)
[2021-11-20] MEDS: clopidogrel 75mg tablet PO SCH (08:01)
[2021-11-20] MEDS: insulin Lispro (HumaLOG) vial - multi-dose SQ SCH ×2 (08:26→19:30)
[2021-11-20] MEDS: ondansetron/PF 4mg/2ml inj IV PRN ×2 (09:47→16:28)
[2021-11-20 12:01] LABS: OCCULT BLOOD STOOL NEGATIVE (Neg)
--- NOTE | 2021-11-20 12:01 | NUR ---
0800 Zosyn was missed dosed d/t patient was in procedure at 0800. Then, when pt came back he needed his other IV meds. At this point it is too late to try to play catch up. Will hang 1600 dose.
[2021-11-20] MEDS: sodium ferric gluc complex inj 125 MG in normal saline 100ml IV soln 100 ML IV SCH (12:35)
--- NOTE | 2021-11-20 12:50 | NUR ---
promotional table spacer Page Accepted promotional table spacer Paged Message: [phone]. SWATHIIZBRIE. edie results are in. JUANCARLOS. Trixie Griggs [phone] Transaction number: [id number]
--- NOTE | 2021-11-20 12:57 | NUR ---
Paged Serenity Keenan. [phone]. Ros. edie negative. amadeo requests a note in chart for cardiac clearance for Brusett to cont sx. Thx
[2021-11-20] MEDS ORDERED: NORMAL SALINE IV ONE (19:00)
[2021-11-20] MEDS ORDERED: SINCALIDE IV ONE (19:00)
[2021-11-20] MEDS: diatr meglu/diatrizoate 30ml oral sol.-(3 dose) bottle PO SCH (21:50)
[2021-11-20] MEDS: insulin glargine (Lantus) pen - multi-dose SQ SCH (22:05)
--- NOTE | 2021-11-20 23:39 | NUR ---
Patient refused dinner but drank 2 bottles ensures, after midnight will be NPO.
[2021-11-21] VITALS: BP 140/61
[2021-11-21] MEDS: piperacillin/tazo 3.375gm/50ml 50 ML IV SCH ×2 (00:20→07:45)
[2021-11-21] MEDS: hyDRALAzine 10mg tablet PO SCH ×3 (00:23→15:45)
[2021-11-21 02:45] VITALS: BP 145/74
[2021-11-21] MEDS: acetaminophen 325mg tablet PO PRN (04:40)
--- NOTE | 2021-11-21 04:49 | NUR ---
Patient complaint of chronic back pain, PRN Tylenol 650 mg PO at 04:40 AM with sipping a little bit of water. Patient is NPO after midnight.
--- NOTE | 2021-11-21 06:35 | NUR ---
Problems reprioritized. Patient report given at bedside, questions answered & plan of care reviewed with AM RN Kenneth.
[2021-11-21 06:41] LABS: BASOPHILS # (AUTO) 0.1 X10'3 (0-0.2); BASOPHILS % (AUTO) 0.6 % (0-1); EOSINOPHILS # (AUTO) 0.4 X10'3 (0-0.9); EOSINOPHILS % (AUTO) 2.3 % (0-6); HEMATOCRIT 24.9 % (42.0-52.0); HEMOGLOBIN 8.2 g/dl (14.0-17.9); LYMPHOCYTES # (AUTO) 1.6 X10'3 (1.1-4.8); LYMPHOCYTES % (AUTO) 10.1 % (21-51); MEAN CORPUSCULAR HEMOGLOBIN 29.6 PG (27.0-31.0); MEAN CORPUSCULAR HGB CONC 32.8 g/dL (33.0-36.5); MEAN CORPUSCULAR VOLUME 90.4 FL (78-98); MEAN PLATELET VOLUME 8.9 FL (7.4-10.4); MONOCYTES # (AUTO) 1.8 X10'3 (0-0.9); MONOCYTES % (AUTO) 11.6 % (2-12); NEUTROPHILS # (AUTO) 11.7 X10'3 (1.8-7.7); NEUTROPHILS % (AUTO) 75.4 % (42-75); PLATELET COUNT 384 X10'3 (140-440); RED BLOOD COUNT 2.76 X10'6 (4.70-6.10); RED CELL DISTRIBUTION WIDTH 13.5 % (11.5-14.5); WHITE BLOOD COUNT 15.5 X10'3 (4.5-11.0)
[2021-11-21 06:53] LABS: ALANINE AMINOTRANSFERASE 18 U/L (12-78); ALBUMIN 2.3 G/DL (3.4-5.0); ALBUMIN/GLOBULIN RATIO 0.6 (1.1-1.5); ALKALINE PHOSPHATASE 65 IU/L (46-116); ANION GAP 8 (8-16); ASPARTATE AMINO TRANSFERASE 26 U/L (10-37); BILIRUBIN,TOTAL 0.5 MG/DL (0.1-1.0); BLOOD UREA NITROGEN 38 MG/DL (7-18); BUN/CREATININE RATIO 22.1 (5.4-32.0); CALCIUM 7.9 MG/DL (8.5-10.1); CHLORIDE 105 MMOL/L (99-107); CREATININE 1.72 MG/DL (0.60-1.10); GLUCOSE 140 MG/DL (70-104); PHOSPHORUS 2.9 MG/DL (2.3-4.5); POTASSIUM 4.1 MMOL/L (3.5-5.1); SODIUM 140 MMOL/L (135-145); TOTAL CARBON DIOXIDE 27.1 MMOL/L (24-32); TOTAL PROTEIN 5.9 G/DL (6.4-8.2); eGFR 40 ML/MIN
[2021-11-21] MEDS: JUVEN Smoothie Arginine/Glut./Ca2+Bmb (Juven 19.3pkt) 240ml cup PO SCH ×2 (07:30→17:30)
[2021-11-21] MEDS: diatr meglu/diatrizoate 30ml oral sol.-(3 dose) bottle PO SCH ×2 (07:46→10:34)
[2021-11-21] MEDS: aspirin 81mg, enteric-coated 1 TAB TABLET.DR PO SCH (07:46)
[2021-11-21] MEDS: clopidogrel 75mg tablet PO SCH (07:46)
[2021-11-21] MEDS: docusate sod 100mg capsule PO SCH ×2 (07:46→20:10)
[2021-11-21] MEDS: tamsulosin 0.4mg capsule PO SCH (07:47)
[2021-11-21] MEDS: atorvastatin 20mg tablet PO SCH (07:47)
[2021-11-21] MEDS: isosorbide mononitrate 30mg tab.SR.24H PO SCH (07:48)
[2021-11-21] MEDS: K and/or MAG REPLACEMENT MC SCH ×2 (07:48→19:52)
[2021-11-21] MEDS: amLODIPine 5mg tablet PO SCH (07:48)
[2021-11-21] MEDS: enoxaparin 30mg/0.3ml syringe SQ SCH (07:49)
[2021-11-21] MEDS: lactose-reduced food (Ensure Enlive) - 237ml bottle PO SCH ×3 (07:49→18:00)
--- NOTE | 2021-11-21 09:22 | NUR ---
Reassessment: Per EMR pt pending additional surgery at this time. PO intake remains poor, documented with 0-25% PO intake of meals however with 100% PO intake of Ensure which is being substituted with Glucerna d/t ONS shortage. Pt also receiving a Oswaldo smoothie BID and pt documented with 100% PO intake of two and 0% PO intake of two since last RD assessment 11/18. Of note pt was NPO at midnight 11/19 and again 11/20, currently NPO. No appropriate nutrition intervention at this time in view of NPO status. LBM 11/20. Will continue to follow closely. Recommendations: 1. Continue carb control diet; liberalize to regular diet if PO intake does not improve 2. Oswaldo Smoothies BIDBD; Ensure Enlive TID- to be substituted with Glucerna d/t ONS shortage 3. Routine bowel care 4. Scaled wt this admit; subsequent weekly scaled weights Addendum: 11/21/21 at [address] Amended: Links added.
--- NOTE | 2021-11-21 09:22 | NUR ---
Message: RE Donald Tomlinson in room 5946W. Can he have IV pain meds ordered. He is 10/10 pain, nothing ordered. Thank You, Kenneth BEASLEY
[2021-11-21] MEDS: sodium ferric gluc complex inj 125 MG in normal saline 100ml IV soln 100 ML IV SCH (10:05)
[2021-11-21] MEDS ORDERED: nitroPRUSSIDE 0.2mg/mL in NS 100 ML IV PRN (11:45)
[2021-11-21] MEDS ORDERED: phenylephrine inj 50 MG in normal saline 250ml IV soln 245 ML IV PRN (11:45)
[2021-11-21] MEDS ORDERED: metoclopramide 5 mg/ml inj IV PRN (13:15)
--- NOTE | 2021-11-21 13:21 | NUR ---
ssage: JAIRON Tomlinson room [id number] Dr Easley cancelled surgery, Can the patient have pain medicine? IV would be preferred d/t ABD pain/vomitting Thank you, Kenneth BEASLEY
[2021-11-21] MEDS: insulin Lispro (HumaLOG) vial - multi-dose SQ SCH (13:31)
[2021-11-21] MEDS ORDERED: CefTRIAXone/D5W-Rocephin 1gm 50 ML IV SCH (15:30)
[2021-11-21] MEDS: metroNIDAZOLE-Flagyl 500mg/NS 100 ML IV SCH (15:45)
[2021-11-21] MEDS: morphine 2 MG/ML inj. syringe IV PRN (15:45)
[2021-11-21] MEDS: metoclopramide 5 mg/ml inj IV SCH ×2 (15:53→20:10)
[2021-11-21] MEDS: pantoprazole 40MG/NS 100ML BAG 100 ML IV SCH ×2 (16:55→20:10)
[2021-11-21 18:00] VITALS: BP 122/68
--- NOTE | 2021-11-21 19:26 | NUR ---
Patient in room PCU 3010. I have received report from JANE BEASLEY and had the opportunity to ask questions and assume patient care.
[2021-11-21 22:00] VITALS: BP 149/77
[2021-11-21] MEDS: insulin glargine (Lantus) pen - multi-dose SQ SCH (22:01)
[2021-11-22] VITALS (7 sets, daily range): BP systolic 132–154; BP diastolic 58–84
[2021-11-22] MEDS: metroNIDAZOLE-Flagyl 500mg/NS 100 ML IV SCH ×2 (00:49→07:29)
[2021-11-22] MEDS: hyDRALAzine 10mg tablet PO SCH ×3 (00:49→16:55)
[2021-11-22] MEDS: metoclopramide 5 mg/ml inj IV SCH ×4 (02:07→19:17)
--- NOTE | 2021-11-22 06:25 | NUR ---
Patient in room PCU 3010. I have received report from criilo BEASLEY and had the opportunity to ask questions and assume patient care.
--- NOTE | 2021-11-22 06:45 | NUR ---
Problems reprioritized. Patient report given, questions answered & plan of care reviewed with TIA BEASLEY.
[2021-11-22 07:04] LABS: BASOPHILS # (AUTO) 0.1 X10'3 (0-0.2); BASOPHILS % (AUTO) 0.8 % (0-1); EOSINOPHILS # (AUTO) 0.6 X10'3 (0-0.9); EOSINOPHILS % (AUTO) 3.1 % (0-6); HEMATOCRIT 26.5 % (42.0-52.0); HEMOGLOBIN 8.7 g/dl (14.0-17.9); LYMPHOCYTES # (AUTO) 2.4 X10'3 (1.1-4.8); LYMPHOCYTES % (AUTO) 12.8 % (21-51); MEAN CORPUSCULAR HEMOGLOBIN 29.9 PG (27.0-31.0); MEAN CORPUSCULAR HGB CONC 32.9 g/dL (33.0-36.5); MEAN CORPUSCULAR VOLUME 90.7 FL (78-98); MEAN PLATELET VOLUME 8.7 FL (7.4-10.4); MONOCYTES # (AUTO) 2.3 X10'3 (0-0.9); MONOCYTES % (AUTO) 12.1 % (2-12); NEUTROPHILS # (AUTO) 13.4 X10'3 (1.8-7.7); NEUTROPHILS % (AUTO) 71.2 % (42-75); PLATELET COUNT 448 X10'3 (140-440); RED BLOOD COUNT 2.92 X10'6 (4.70-6.10); RED CELL DISTRIBUTION WIDTH 13.7 % (11.5-14.5); WHITE BLOOD COUNT 18.8 X10'3 (4.5-11.0)
[2021-11-22] MEDS: morphine 2 MG/ML inj. syringe IV PRN (07:28)
[2021-11-22] MEDS: JUVEN Smoothie Arginine/Glut./Ca2+Bmb (Juven 19.3pkt) 240ml cup PO SCH ×3 (07:30→19:40)
[2021-11-22 07:36] LABS: ALANINE AMINOTRANSFERASE 19 U/L (12-78); ALBUMIN 2.5 G/DL (3.4-5.0); ALBUMIN/GLOBULIN RATIO 0.6 (1.1-1.5); ALKALINE PHOSPHATASE 66 IU/L (46-116); ANION GAP 9 (8-16); ASPARTATE AMINO TRANSFERASE 27 U/L (10-37); BILIRUBIN,TOTAL 0.4 MG/DL (0.1-1.0); BLOOD UREA NITROGEN 35 MG/DL (7-18); BUN/CREATININE RATIO 21.2 (5.4-32.0); CALCIUM 7.8 MG/DL (8.5-10.1); CHLORIDE 105 MMOL/L (99-107); CREATININE 1.65 MG/DL (0.60-1.10); GLUCOSE 71 MG/DL (70-104); MAGNESIUM 3.2 MG/DL (1.5-2.4); PHOSPHORUS 3.6 MG/DL (2.3-4.5); POTASSIUM 3.8 MMOL/L (3.5-5.1); SODIUM 140 MMOL/L (135-145); TOTAL CARBON DIOXIDE 26.2 MMOL/L (24-32); TOTAL PROTEIN 6.4 G/DL (6.4-8.2); eGFR 42 ML/MIN
[2021-11-22] MEDS: atorvastatin 20mg tablet PO SCH (07:54)
[2021-11-22 07:55] LABS: LARGE PLATELETS FEW; PLATELET ESTIMATE INCREASED; TOTAL CELLS COUNTED 100
[2021-11-22] MEDS: tamsulosin 0.4mg capsule PO SCH (07:55)
[2021-11-22] MEDS: docusate sod 100mg capsule PO SCH ×2 (07:55→19:18)
[2021-11-22] MEDS: isosorbide mononitrate 30mg tab.SR.24H PO SCH (07:56)
[2021-11-22] MEDS: K and/or MAG REPLACEMENT MC SCH ×2 (08:00→20:00)
[2021-11-22] MEDS: lactose-reduced food (Ensure Enlive) - 237ml bottle PO SCH ×4 (08:00→19:00)
[2021-11-22] MEDS: amLODIPine 5mg tablet PO SCH (08:00)
[2021-11-22] MEDS: sodium ferric gluc complex inj 125 MG in normal saline 100ml IV soln 100 ML IV SCH (09:06)
[2021-11-22] MEDS: pantoprazole 40MG/NS 100ML BAG 100 ML IV SCH (11:19)
--- NOTE | 2021-11-22 11:30 | NUR ---
Pt having Thoracentesis with IR. left side 50ml, right 900ml. Pt will be going to Nuclear medicine to have a Hiada scan.
[2021-11-22 13:00] LABS: BFSOURCE RIGHT PLEURAL FLD; PLEURAL FLUID PH 7.438 (7.63-7.65)
[2021-11-22] MEDS: clopidogrel 75mg tablet PO SCH (13:04)
[2021-11-22] MEDS: aspirin 81mg, enteric-coated 1 TAB TABLET.DR PO SCH (13:04)
[2021-11-22] MEDS: enoxaparin 30mg/0.3ml syringe SQ SCH (13:06)
[2021-11-22 13:58] LABS: BFAPPEAR HAZY
[2021-11-22 13:59] LABS: BF MESOTHELIAL CELLS FEW; BF RBC COUNT 74 /CU MM; BF WBC COUNT 93 /CU MM (0-1000); BFCOLOR YELLOW; BFVOLUME 63 ML; LYMPHOCYTES,BODY FLUID 35 %; MONOCYTES,BODY FLUID 14 %; NEUTROPHILS,BODY FLUID 51 %
[2021-11-22] MEDS ORDERED: SINCALIDE IV ONE (14:00)
[2021-11-22] MEDS ORDERED: NORMAL SALINE IV ONE (14:00)
[2021-11-22 15:27] LABS: GLUCOSE,BODY FLUID 166 MG/DL; LDH,BODY FLUID 58 U/L
[2021-11-22 15:43] LABS: TOTAL PROTEIN,BODY FLUID < 2.0 G/DL
--- NOTE | 2021-11-22 16:00 | NUR ---
pt back from Hiada scan procedure.
--- NOTE | 2021-11-22 17:26 | NUR ---
Student Medication Administration: For this medication-pass time frame, all medication were reviewed, dispensed, administered and documented per hospital policy by ANJANA HERRERA NURSE.
--- NOTE | 2021-11-22 17:38 | NUR ---
Charting by Fredy LUONG reviewed by Bushra Williamson RN
--- NOTE | 2021-11-22 18:23 | NUR ---
Problems reprioritized. Patient report given, questions answered & plan of care reviewed with Lolly BEASLEY and student.
[2021-11-22] MEDS: vancomycin/NS 1 GM ADD-VANTAGE 250 ML X 1 DOSE IV SCH ×2 (18:30→19:18)
--- NOTE | 2021-11-22 18:53 | NUR ---
Patient in room PCU 3010. I have received report from Marilyn BEASLEY and had the opportunity to ask questions and assume patient care. P is sitting up high fowlers in bed. at bedside. Pt on 2L NC. No s/s of distress. Pt declines c/o pain at this time. BLL, call light within reach, frequently used items in reach, frequent rounding, medicine assistant socks on. Will continue to monitor.
[2021-11-22] MEDS: pantoprazole 40mg Tablet.DR PO SCH (19:18)
[2021-11-22] MEDS ORDERED: VANCOMYCIN LEVEL IV ONE (21:30)
[2021-11-22] MEDS: insulin glargine (Lantus) pen - multi-dose SQ SCH (21:39)
[2021-11-23] MEDS: metoclopramide 5 mg/ml inj IV SCH ×4 (01:41→21:19)
[2021-11-23] MEDS: acetaminophen 325mg tablet PO PRN ×2 (02:56→21:18)
[2021-11-23 06:00] VITALS: BP 148/76
--- NOTE | 2021-11-23 06:49 | NUR ---
Patient in room PCU 3010. I have received report from Rhiannon BEASLEY traveler and had the opportunity to ask questions and assume patient care.
[2021-11-23 07:12] LABS: BASOPHILS # (AUTO) 0.1 X10'3 (0-0.2); BASOPHILS % (AUTO) 0.4 % (0-1); EOSINOPHILS # (AUTO) 0.3 X10'3 (0-0.9); EOSINOPHILS % (AUTO) 1.6 % (0-6); HEMATOCRIT 25.5 % (42.0-52.0); HEMOGLOBIN 8.3 g/dl (14.0-17.9); LYMPHOCYTES # (AUTO) 2.5 X10'3 (1.1-4.8); LYMPHOCYTES % (AUTO) 15.9 % (21-51); MEAN CORPUSCULAR HEMOGLOBIN 30.6 PG (27.0-31.0); MEAN CORPUSCULAR HGB CONC 32.7 g/dL (33.0-36.5); MEAN CORPUSCULAR VOLUME 93.5 FL (78-98); MEAN PLATELET VOLUME 8.6 FL (7.4-10.4); MONOCYTES # (AUTO) 1.7 X10'3 (0-0.9); MONOCYTES % (AUTO) 10.5 % (2-12); NEUTROPHILS # (AUTO) 11.5 X10'3 (1.8-7.7); NEUTROPHILS % (AUTO) 71.6 % (42-75); PLATELET COUNT 404 X10'3 (140-440); RED BLOOD COUNT 2.72 X10'6 (4.70-6.10); RED CELL DISTRIBUTION WIDTH 13.7 % (11.5-14.5)
[2021-11-23 07:51] LABS: ALANINE AMINOTRANSFERASE 19 U/L (12-78); ALBUMIN 2.5 G/DL (3.4-5.0); ALBUMIN/GLOBULIN RATIO 0.7 (1.1-1.5); ALKALINE PHOSPHATASE 67 IU/L (46-116); ANION GAP 8 (8-16); ASPARTATE AMINO TRANSFERASE 26 U/L (10-37); BILIRUBIN,TOTAL 0.5 MG/DL (0.1-1.0); BLOOD UREA NITROGEN 38 MG/DL (7-18); CHLORIDE 104 MMOL/L (99-107); CREATININE 1.73 MG/DL (0.60-1.10); GLUCOSE 74 MG/DL (70-104); MAGNESIUM 3.3 MG/DL (1.5-2.4); PHOSPHORUS 3.9 MG/DL (2.3-4.5); POTASSIUM 4.2 MMOL/L (3.5-5.1); SODIUM 138 MMOL/L (135-145); TOTAL CARBON DIOXIDE 25.6 MMOL/L (24-32); TOTAL PROTEIN 6.3 G/DL (6.4-8.2); eGFR 40 ML/MIN
[2021-11-23] MEDS: amLODIPine 5mg tablet PO SCH (08:00)
[2021-11-23] MEDS: K and/or MAG REPLACEMENT MC SCH ×2 (08:00→20:00)
[2021-11-23 08:30] VITALS: BP 149/77
[2021-11-23] MEDS: tamsulosin 0.4mg capsule PO SCH (08:31)
[2021-11-23] MEDS: docusate sod 100mg capsule PO SCH ×2 (08:32→20:00)
[2021-11-23] MEDS: atorvastatin 20mg tablet PO SCH (08:32)
[2021-11-23] MEDS: hyDRALAzine 10mg tablet PO SCH ×3 (08:32→17:24)
[2021-11-23] MEDS: isosorbide mononitrate 30mg tab.SR.24H PO SCH (08:32)
[2021-11-23] MEDS: aspirin 81mg, enteric-coated 1 TAB TABLET.DR PO SCH (08:32)
[2021-11-23] MEDS: pantoprazole 40mg Tablet.DR PO SCH ×2 (08:32→21:18)
[2021-11-23] MEDS: clopidogrel 75mg tablet PO SCH (08:33)
[2021-11-23] MEDS: enoxaparin 30mg/0.3ml syringe SQ SCH (08:34)
[2021-11-23] MEDS: sodium ferric gluc complex inj 125 MG in normal saline 100ml IV soln 100 ML IV SCH (09:37)
[2021-11-23] MEDS: LORazepam 1 MG tablet PO PRN (12:02)
--- NOTE | 2021-11-23 12:30 | NUR ---
Student Medication Administration: For this medication-pass time frame, all medication were reviewed, dispensed, administered and documented per hospital policy by Cuco RODRIGUEZ, verified by primary care RN . Student documentation: I have reviewed and agree with all interventions, assessments performed and documented by SN Barb.
[2021-11-23] MEDS: lactose-reduced food (Ensure Enlive) - 237ml bottle PO SCH ×2 (13:00→18:03)
[2021-11-23 16:00] VITALS: BP 132/57
[2021-11-23 18:00] VITALS: BP 136/69
[2021-11-23] MEDS: JUVEN Smoothie Arginine/Glut./Ca2+Bmb (Juven 19.3pkt) 240ml cup PO SCH (18:03)
--- NOTE | 2021-11-23 18:14 | NUR ---
Problems reprioritized. Patient report given, questions answered & plan of care reviewed with Rosa BEASLEY traveler.
--- NOTE | 2021-11-23 18:30 | NUR ---
Patient in room PCU 3010. I have received report from Marilyn BEASLEY and had the opportunity to ask questions and assume patient care. Pt is sitting in bed high fowlers. Pt has NC @2L. No s/s of distress. Pt declines pain at this time[facility], call light within reach, frequently used items in reach, frequent rounding, portfolio assistant socks on. Will continue to monitor.
[2021-11-23] MEDS: VANCOMYCIN 750MG IV in NS 250 ML IV SCH (21:19)
[2021-11-23 22:00] VITALS: BP 136/70
[2021-11-23] MEDS: insulin glargine (Lantus) pen - multi-dose SQ SCH (22:00)
[2021-11-24] MEDS: metoclopramide 5 mg/ml inj IV SCH ×4 (01:16→20:03)
[2021-11-24 02:00] VITALS: BP 141/84
[2021-11-24 06:00] VITALS: BP 138/80
--- NOTE | 2021-11-24 06:37 | NUR ---
Problems reprioritized. Patient report given, questions answered & plan of care reviewed with Yazmin BEASLEY.
[2021-11-24 07:23] LABS: BASOPHILS # (AUTO) 0.1 X10'3 (0-0.2); BASOPHILS % (AUTO) 0.5 % (0-1); EOSINOPHILS # (AUTO) 0.4 X10'3 (0-0.9); EOSINOPHILS % (AUTO) 2.5 % (0-6); HEMATOCRIT 25.5 % (42.0-52.0); HEMOGLOBIN 8.3 g/dl (14.0-17.9); LYMPHOCYTES # (AUTO) 1.7 X10'3 (1.1-4.8); LYMPHOCYTES % (AUTO) 11.1 % (21-51); MEAN CORPUSCULAR HEMOGLOBIN 30.3 PG (27.0-31.0); MEAN CORPUSCULAR HGB CONC 32.7 g/dL (33.0-36.5); MEAN CORPUSCULAR VOLUME 92.7 FL (78-98); MEAN PLATELET VOLUME 8.8 FL (7.4-10.4); MONOCYTES # (AUTO) 1.7 X10'3 (0-0.9); MONOCYTES % (AUTO) 10.8 % (2-12); NEUTROPHILS # (AUTO) 11.5 X10'3 (1.8-7.7); NEUTROPHILS % (AUTO) 75.1 % (42-75); PLATELET COUNT 431 X10'3 (140-440); RED BLOOD COUNT 2.75 X10'6 (4.70-6.10); RED CELL DISTRIBUTION WIDTH 13.8 % (11.5-14.5); WHITE BLOOD COUNT 15.4 X10'3 (4.5-11.0)
[2021-11-24] MEDS: JUVEN Smoothie Arginine/Glut./Ca2+Bmb (Juven 19.3pkt) 240ml cup PO SCH ×2 (07:30→17:30)
[2021-11-24 07:52] LABS: ALANINE AMINOTRANSFERASE 20 U/L (12-78); ALBUMIN 2.4 G/DL (3.4-5.0); ALBUMIN/GLOBULIN RATIO 0.6 (1.1-1.5); ALKALINE PHOSPHATASE 73 IU/L (46-116); ANION GAP 7 (8-16); ASPARTATE AMINO TRANSFERASE 24 U/L (10-37); BILIRUBIN,TOTAL 0.4 MG/DL (0.1-1.0); BLOOD UREA NITROGEN 37 MG/DL (7-18); BUN/CREATININE RATIO 23.7 (5.4-32.0); CALCIUM 7.6 MG/DL (8.5-10.1); CHLORIDE 103 MMOL/L (99-107); CREATININE 1.56 MG/DL (0.60-1.10); GLUCOSE 111 MG/DL (70-104); MAGNESIUM 3.2 MG/DL (1.5-2.4); PHOSPHORUS 3.6 MG/DL (2.3-4.5); POTASSIUM 4.1 MMOL/L (3.5-5.1); SODIUM 137 MMOL/L (135-145); TOTAL CARBON DIOXIDE 26.6 MMOL/L (24-32); TOTAL PROTEIN 6.2 G/DL (6.4-8.2); eGFR 45 ML/MIN
[2021-11-24] MEDS: enoxaparin 30mg/0.3ml syringe SQ SCH (08:00)
[2021-11-24] MEDS: lactose-reduced food (Ensure Enlive) - 237ml bottle PO SCH ×3 (08:00→18:00)
[2021-11-24] MEDS: K and/or MAG REPLACEMENT MC SCH ×2 (08:00→20:00)
[2021-11-24] MEDS: aspirin 81mg, enteric-coated 1 TAB TABLET.DR PO SCH (09:15)
[2021-11-24] MEDS: tamsulosin 0.4mg capsule PO SCH (09:15)
[2021-11-24] MEDS: isosorbide mononitrate 30mg tab.SR.24H PO SCH (09:15)
[2021-11-24] MEDS: atorvastatin 20mg tablet PO SCH (09:16)
[2021-11-24] MEDS: docusate sod 100mg capsule PO SCH ×2 (09:16→20:03)
--- NOTE | 2021-11-24 09:16 | NUR ---
F/u 11/24: Pt CEA postponed to outpatient returned to PO diet 11/22 following NPO. 11/19 and 11/21 documented as refusing dinners but actually NPO w/ no breakfast and lunch intake documentation 11/22-11/23 per EMR. Pt did intake 100% carb controlled dinner last night w/ PO mostly 100% Oswaldo smoothie BID/Ensure Enlives past two days though refused ONS this AM per EMR. Unable to fully assess nutrition status given lack of intake documentation though given ONS intake pt at least partially meeting estimated needs at this time. LBM 11/23. Will monitor for further PO trends and ONS acceptance. Recommendations: 1. Continue carb control diet; liberalize to regular diet if PO regresses 2. Oswaldo Smoothies BIDBD; Ensure Enlive TIDWM - encourage ONS intake 3. Routine bowel care 4. Scaled wt this admit; subsequent weekly scaled weights Addendum: 11/24/21 at [address] Amended: Links added.
[2021-11-24] MEDS: clopidogrel 75mg tablet PO SCH (09:17)
[2021-11-24] MEDS: pantoprazole 40mg Tablet.DR PO SCH ×2 (09:17→20:03)
[2021-11-24] MEDS: amLODIPine 5mg tablet PO SCH (09:17)
[2021-11-24] MEDS: hyDRALAzine 10mg tablet PO SCH ×3 (09:37→17:26)
[2021-11-24 11:00] VITALS: BP 136/64
[2021-11-24] MEDS: furosemide 20 MG/2 ML vial IV SCH ×2 (12:44→20:03)
[2021-11-24] MEDS: sodium ferric gluc complex inj 125 MG in normal saline 100ml IV soln 100 ML IV SCH (14:25)
[2021-11-24] MEDS: acetaminophen 325mg tablet PO PRN ×2 (14:26→22:01)
[2021-11-24 15:00] VITALS: BP 126/68
[2021-11-24 18:00] VITALS: BP 125/61
[2021-11-24] MEDS: VANCOMYCIN 750MG IV in NS 250 ML IV SCH (20:02)
--- NOTE | 2021-11-24 20:14 | NUR ---
Surgical incision were covered at family request.
--- NOTE | 2021-11-24 20:15 | NUR ---
Problems reprioritized. Patient report given, questions answered & plan of care reviewed with RAMOS Trivedi.
[2021-11-24] MEDS: insulin glargine (Lantus) pen - multi-dose SQ SCH (21:26)
[2021-11-24] MEDS: Melatonin 3mg tablet PO SCH (21:27)
[2021-11-24 22:00] VITALS: BP 128/63
--- NOTE | 2021-11-24 22:42 | NUR ---
pt did not receive his 1899 correctional insulin due to unavailability of the drug in the [facility] and late supply by the pharmacy,which was supplied around 2124.
[2021-11-25] MEDS: hyDRALAzine 10mg tablet PO SCH ×3 (00:05→17:54)
[2021-11-25 02:00] VITALS: BP 130/72
[2021-11-25] MEDS: metoclopramide 5 mg/ml inj IV SCH ×4 (02:01→20:06)
[2021-11-25 06:00] VITALS: BP 130/63
--- NOTE | 2021-11-25 06:28 | NUR ---
Patient in room PCU 3010. I have received report from Shikha BEASLEY and had the opportunity to ask questions and assume patient care.
--- NOTE | 2021-11-25 06:32 | NUR ---
Supplements not shown as given from prior day are marked undiminished.
[2021-11-25 06:35] LABS: ALANINE AMINOTRANSFERASE 25 U/L (12-78); ALBUMIN 2.3 G/DL (3.4-5.0); ALBUMIN/GLOBULIN RATIO 0.6 (1.1-1.5); ALKALINE PHOSPHATASE 77 IU/L (46-116); ANION GAP 6 (8-16); ASPARTATE AMINO TRANSFERASE 28 U/L (10-37); BILIRUBIN,TOTAL 0.4 MG/DL (0.1-1.0); BLOOD UREA NITROGEN 40 MG/DL (7-18); BUN/CREATININE RATIO 24.1 (5.4-32.0); CALCIUM 7.4 MG/DL (8.5-10.1); CHLORIDE 102 MMOL/L (99-107); CREATININE 1.66 MG/DL (0.60-1.10); GLUCOSE 134 MG/DL (70-104); PHOSPHORUS 3.3 MG/DL (2.3-4.5); POTASSIUM 4.6 MMOL/L (3.5-5.1); SODIUM 137 MMOL/L (135-145); TOTAL CARBON DIOXIDE 29.1 MMOL/L (24-32); eGFR 42 ML/MIN
[2021-11-25 06:37] LABS: BASOPHILS # (AUTO) 0.1 X10'3 (0-0.2); BASOPHILS % (AUTO) 0.8 % (0-1); EOSINOPHILS # (AUTO) 0.5 X10'3 (0-0.9); EOSINOPHILS % (AUTO) 3.5 % (0-6); HEMATOCRIT 24.1 % (42.0-52.0); HEMOGLOBIN 7.9 g/dl (14.0-17.9); LYMPHOCYTES # (AUTO) 2.2 X10'3 (1.1-4.8); LYMPHOCYTES % (AUTO) 17.2 % (21-51); MEAN CORPUSCULAR HEMOGLOBIN 30.7 PG (27.0-31.0); MEAN CORPUSCULAR VOLUME 93.1 FL (78-98); MEAN PLATELET VOLUME 8.8 FL (7.4-10.4); MONOCYTES # (AUTO) 1.6 X10'3 (0-0.9); MONOCYTES % (AUTO) 12.2 % (2-12); NEUTROPHILS # (AUTO) 8.6 X10'3 (1.8-7.7); NEUTROPHILS % (AUTO) 66.3 % (42-75); PLATELET COUNT 415 X10'3 (140-440); RED BLOOD COUNT 2.58 X10'6 (4.70-6.10)
[2021-11-25] MEDS: sodium ferric gluc complex inj 125 MG in normal saline 100ml IV soln 100 ML IV SCH (07:43)
[2021-11-25] MEDS: furosemide 20 MG/2 ML vial IV SCH ×2 (07:44→20:05)
[2021-11-25] MEDS: isosorbide mononitrate 30mg tab.SR.24H PO SCH (07:45)
[2021-11-25] MEDS: tamsulosin 0.4mg capsule PO SCH (07:45)
[2021-11-25] MEDS: docusate sod 100mg capsule PO SCH ×2 (07:45→20:07)
[2021-11-25] MEDS: amLODIPine 5mg tablet PO SCH (07:46)
[2021-11-25] MEDS: pantoprazole 40mg Tablet.DR PO SCH ×2 (07:46→20:07)
[2021-11-25] MEDS: atorvastatin 20mg tablet PO SCH (07:47)
[2021-11-25] MEDS: clopidogrel 75mg tablet PO SCH (07:47)
[2021-11-25] MEDS: enoxaparin 30mg/0.3ml syringe SQ SCH (07:47)
[2021-11-25] MEDS: JUVEN Smoothie Arginine/Glut./Ca2+Bmb (Juven 19.3pkt) 240ml cup PO SCH ×2 (07:49→10:35)
[2021-11-25] MEDS: K and/or MAG REPLACEMENT MC SCH ×2 (08:00→20:00)
[2021-11-25] MEDS: lactose-reduced food (Ensure Enlive) - 237ml bottle PO SCH ×3 (08:00→18:00)
[2021-11-25] MEDS: aspirin 81mg, enteric-coated 1 TAB TABLET.DR PO SCH (08:05)
[2021-11-25 11:00] VITALS: BP 126/65
[2021-11-25] MEDS ORDERED: VANCOMYCIN LEVEL IV ONE (18:30)
[2021-11-25 19:40] VITALS: BP 147/87
--- NOTE | 2021-11-25 19:40 | NUR ---
Recd patient with changes to care, noted during shift assessment pt, diaphoretic, pale , abdominal breathing, c/o not able to urinate saturation low 80s. Checked bladder 3 ml in bladder, called RT as well assessed pt obtained stat EKG showed rhythm, dobbler pedal pulse asses changes which was reported to MD. Pt B/P measured and resp and blood sugar. MD given orders for patient . Confused anxiousness. C/O of chest pain abdominal discomfort. tachypnea. During assessment patient surgical dressings saturated drainage dressing was made noted off oozing. [place] in place with drainage. Called Md of noted changes of ABG, Chest X-ray, CBC, BMP, CMP and nitro MS STaT Lasix given per MD order effective continue to monitor for changes Pt able urinate out put during shift 2100 output. Afebrile by bedside.
[2021-11-25] MEDS: Melatonin 3mg tablet PO SCH (20:03)
[2021-11-25] MEDS: acetaminophen 325mg tablet PO PRN (20:05)
[2021-11-25] MEDS: LORazepam 1 MG tablet PO PRN (20:07)
[2021-11-25] MEDS ORDERED: nitroGLYCERIN 0.4mg SUBLingual tab SL PRN (20:55)
[2021-11-25] MEDS: insulin glargine (Lantus) pen - multi-dose SQ SCH (21:00)
[2021-11-25 21:11] LABS: ABG BASE EXCESS 0.3 mmol/L (-2.0-2.0); ABG OXYGEN SATURATION 99.5 % (94-97); ABG PCO2 (T) 39.8 mmHg (35.0-48.0); ABG PO2 (T) 249.8 mmHg (75.0-100.0); ALLEN'S TEST POSITIVE; FLOW 16 L/min; FMetHb 0.2 % (0.0-1.5); FO2Hb 99.3 % (94-97); PATIENT TEMPERATURE 36.7; TOTAL HEMOGLOBIN 9.1 G/dl (14.0-18.0)
[2021-11-25] MEDS: morphine 2 MG/ML inj. syringe IV PRN (21:11)
[2021-11-25 21:30] LABS: BASOPHILS # (AUTO) 0.1 X10'3 (0-0.2); BASOPHILS % (AUTO) 0.8 % (0-1); EOSINOPHILS # (AUTO) 0.4 X10'3 (0-0.9); EOSINOPHILS % (AUTO) 2.6 % (0-6); HEMATOCRIT 26.1 % (42.0-52.0); HEMOGLOBIN 8.6 g/dl (14.0-17.9); LYMPHOCYTES # (AUTO) 1.8 X10'3 (1.1-4.8); LYMPHOCYTES % (AUTO) 12.3 % (21-51); MEAN CORPUSCULAR HEMOGLOBIN 30.9 PG (27.0-31.0); MEAN CORPUSCULAR VOLUME 93.7 FL (78-98); MEAN PLATELET VOLUME 8.7 FL (7.4-10.4); MONOCYTES # (AUTO) 1.5 X10'3 (0-0.9); MONOCYTES % (AUTO) 10.3 % (2-12); NEUTROPHILS # (AUTO) 10.8 X10'3 (1.8-7.7); PLATELET COUNT 436 X10'3 (140-440); RED BLOOD COUNT 2.79 X10'6 (4.70-6.10); WHITE BLOOD COUNT 14.6 X10'3 (4.5-11.0)
[2021-11-25] MEDS ORDERED: furosemide 40mg/4ml inj IV ONE (21:35)
[2021-11-25 21:40] LABS: ALANINE AMINOTRANSFERASE 25 U/L (12-78); ALBUMIN 2.4 G/DL (3.4-5.0); ALBUMIN/GLOBULIN RATIO 0.6 (1.1-1.5); ALKALINE PHOSPHATASE 84 IU/L (46-116); ANION GAP 10 (8-16); ASPARTATE AMINO TRANSFERASE 23 U/L (10-37); BILIRUBIN,TOTAL 0.5 MG/DL (0.1-1.0); BLOOD UREA NITROGEN 35 MG/DL (7-18); BUN/CREATININE RATIO 18.5 (5.4-32.0); CALCIUM 7.8 MG/DL (8.5-10.1); CHLORIDE 101 MMOL/L (99-107); CREATININE 1.89 MG/DL (0.60-1.10); GLUCOSE 225 MG/DL (70-104); POTASSIUM 4.7 MMOL/L (3.5-5.1); SODIUM 137 MMOL/L (135-145); TOTAL CARBON DIOXIDE 26.1 MMOL/L (24-32); TOTAL PROTEIN 6.3 G/DL (6.4-8.2); eGFR 36 ML/MIN
[2021-11-25 22:00] VITALS: BP 146/85
[2021-11-25] MEDS: VANCOMYCIN 750MG IV in NS 250 ML IV SCH (22:46)
[2021-11-26] MEDS: metoclopramide 5 mg/ml inj IV SCH ×4 (02:00→20:11)
[2021-11-26 04:00] VITALS: BP 142/78
[2021-11-26 06:00] VITALS: BP 129/66
[2021-11-26] MEDS: JUVEN Smoothie Arginine/Glut./Ca2+Bmb (Juven 19.3pkt) 240ml cup PO SCH ×2 (07:30→17:30)
[2021-11-26 07:50] LABS: BASOPHILS # (AUTO) 0.1 X10'3 (0-0.2); BASOPHILS % (AUTO) 0.9 % (0-1); EOSINOPHILS # (AUTO) 0.4 X10'3 (0-0.9); EOSINOPHILS % (AUTO) 3.3 % (0-6); HEMATOCRIT 24.3 % (42.0-52.0); HEMOGLOBIN 7.9 g/dl (14.0-17.9); LYMPHOCYTES % (AUTO) 15.6 % (21-51); MEAN CORPUSCULAR HEMOGLOBIN 30.5 PG (27.0-31.0); MEAN CORPUSCULAR HGB CONC 32.6 g/dL (33.0-36.5); MEAN CORPUSCULAR VOLUME 93.5 FL (78-98); MEAN PLATELET VOLUME 9.1 FL (7.4-10.4); MONOCYTES # (AUTO) 1.4 X10'3 (0-0.9); MONOCYTES % (AUTO) 10.9 % (2-12); NEUTROPHILS # (AUTO) 9.1 X10'3 (1.8-7.7); NEUTROPHILS % (AUTO) 69.3 % (42-75); PLATELET COUNT 395 X10'3 (140-440); RED CELL DISTRIBUTION WIDTH 14.1 % (11.5-14.5); WHITE BLOOD COUNT 13.2 X10'3 (4.5-11.0)
[2021-11-26] MEDS: K and/or MAG REPLACEMENT MC SCH ×2 (08:00→20:00)
[2021-11-26] MEDS: lactose-reduced food (Ensure Enlive) - 237ml bottle PO SCH ×3 (08:00→18:00)
--- NOTE | 2021-11-26 08:33 | NUR ---
Trop = 83 Rusu notified PAGER ID: [phone] MESSAGE: [phone] Donald Sommer Trop = 83
[2021-11-26] MEDS: furosemide 20 MG/2 ML vial IV SCH ×2 (08:44→20:11)
[2021-11-26] MEDS: isosorbide mononitrate 30mg tab.SR.24H PO SCH (08:45)
[2021-11-26] MEDS: pantoprazole 40mg Tablet.DR PO SCH ×2 (08:45→20:13)
[2021-11-26] MEDS: enoxaparin 30mg/0.3ml syringe SQ SCH (08:45)
[2021-11-26] MEDS: atorvastatin 20mg tablet PO SCH (08:45)
[2021-11-26] MEDS: clopidogrel 75mg tablet PO SCH (08:46)
[2021-11-26] MEDS: hyDRALAzine 10mg tablet PO SCH ×3 (08:46→17:37)
[2021-11-26] MEDS: docusate sod 100mg capsule PO SCH ×2 (08:46→20:12)
[2021-11-26] MEDS: amLODIPine 5mg tablet PO SCH (08:46)
[2021-11-26] MEDS: aspirin 81mg, enteric-coated 1 TAB TABLET.DR PO SCH (08:46)
[2021-11-26] MEDS: tamsulosin 0.4mg capsule PO SCH (08:46)
[2021-11-26 11:00] VITALS: BP 140/70
[2021-11-26] MEDS: sodium ferric gluc complex inj 125 MG in normal saline 100ml IV soln 100 ML IV SCH (12:24)
[2021-11-26 15:00] VITALS: BP 120/60
[2021-11-26] MEDS: insulin Lispro (HumaLOG) vial - multi-dose SQ SCH (15:19)
[2021-11-26] MEDS: acetaminophen 325mg tablet PO PRN (20:12)
[2021-11-26] MEDS: Melatonin 3mg tablet PO SCH (20:12)
[2021-11-26] MEDS: vancomycin/NS 1 GM ADD-VANTAGE 250 ML IV SCH (20:14)
[2021-11-26] MEDS: insulin glargine (Lantus) pen - multi-dose SQ SCH (21:00)
[2021-11-27] MEDS: morphine 2 MG/ML inj. syringe IV PRN (00:11)
[2021-11-27] MEDS: hyDRALAzine 10mg tablet PO SCH ×4 (00:11→23:20)
[2021-11-27] MEDS: metoclopramide 5 mg/ml inj IV SCH ×4 (02:18→21:06)
[2021-11-27 06:00] VITALS: BP 152/80
[2021-11-27] MEDS: JUVEN Smoothie Arginine/Glut./Ca2+Bmb (Juven 19.3pkt) 240ml cup PO SCH ×3 (07:30→21:20)
[2021-11-27] MEDS: sodium ferric gluc complex inj 125 MG in normal saline 100ml IV soln 100 ML IV SCH (08:00)
[2021-11-27] MEDS: K and/or MAG REPLACEMENT MC SCH ×2 (08:00→20:00)
[2021-11-27] MEDS: docusate sod 100mg capsule PO SCH ×2 (08:00→20:52)
[2021-11-27 08:11] LABS: ALBUMIN 2.3 G/DL (3.4-5.0); ANION GAP 4 (8-16); BLOOD UREA NITROGEN 28 MG/DL (7-18); BUN/CREATININE RATIO 18.7 (5.4-32.0); CHLORIDE 101 MMOL/L (99-107); GLUCOSE 156 MG/DL (70-104); POTASSIUM 4.3 MMOL/L (3.5-5.1); SODIUM 135 MMOL/L (135-145); TOTAL CARBON DIOXIDE 30.4 MMOL/L (24-32); eGFR 47 ML/MIN
[2021-11-27] MEDS: clopidogrel 75mg tablet PO SCH (08:56)
[2021-11-27] MEDS: pantoprazole 40mg Tablet.DR PO SCH ×2 (08:56→20:52)
[2021-11-27] MEDS: tamsulosin 0.4mg capsule PO SCH (08:56)
[2021-11-27] MEDS: isosorbide mononitrate 30mg tab.SR.24H PO SCH (08:56)
[2021-11-27] MEDS: amLODIPine 5mg tablet PO SCH (08:57)
[2021-11-27] MEDS: aspirin 81mg, enteric-coated 1 TAB TABLET.DR PO SCH (08:57)
[2021-11-27] MEDS: atorvastatin 20mg tablet PO SCH (08:58)
[2021-11-27] MEDS: furosemide 20 MG/2 ML vial IV SCH ×2 (08:58→21:06)
[2021-11-27] MEDS: lactose-reduced food (Ensure Enlive) - 237ml bottle PO SCH ×4 (08:59→21:19)
[2021-11-27] MEDS: enoxaparin 30mg/0.3ml syringe SQ SCH (08:59)
[2021-11-27 09:07] LABS: BASOPHILS # (AUTO) 0.1 X10'3 (0-0.2); BASOPHILS % (AUTO) 0.8 % (0-1); EOSINOPHILS # (AUTO) 0.5 X10'3 (0-0.9); HEMATOCRIT 25.4 % (42.0-52.0); HEMOGLOBIN 8.3 g/dl (14.0-17.9); LYMPHOCYTES # (AUTO) 1.7 X10'3 (1.1-4.8); LYMPHOCYTES % (AUTO) 13.4 % (21-51); MEAN CORPUSCULAR HEMOGLOBIN 30.6 PG (27.0-31.0); MEAN CORPUSCULAR HGB CONC 32.6 g/dL (33.0-36.5); MEAN CORPUSCULAR VOLUME 93.8 FL (78-98); MONOCYTES # (AUTO) 1.5 X10'3 (0-0.9); MONOCYTES % (AUTO) 11.6 % (2-12); NEUTROPHILS # (AUTO) 8.9 X10'3 (1.8-7.7); NEUTROPHILS % (AUTO) 70.2 % (42-75); PLATELET COUNT 388 X10'3 (140-440); RED BLOOD COUNT 2.71 X10'6 (4.70-6.10); RED CELL DISTRIBUTION WIDTH 13.8 % (11.5-14.5); WHITE BLOOD COUNT 12.7 X10'3 (4.5-11.0)
[2021-11-27] MEDS: insulin Lispro (HumaLOG) vial - multi-dose SQ SCH ×2 (10:01→14:20)
[2021-11-27 11:00] VITALS: BP 121/98
[2021-11-27 15:00] VITALS: BP 126/50
[2021-11-27] MEDS: Melatonin 3mg tablet PO SCH (20:52)
[2021-11-27] MEDS: vancomycin/NS 1 GM ADD-VANTAGE 250 ML IV SCH (21:06)
[2021-11-27] MEDS: insulin glargine (Lantus) pen - multi-dose SQ SCH (21:24)
[2021-11-27 22:00] VITALS: BP 138/67
[2021-11-27] MEDS: acetaminophen 325mg tablet PO PRN (23:20)
[2021-11-28 02:00] VITALS: BP 123/65
[2021-11-28] MEDS: metoclopramide 5 mg/ml inj IV SCH ×4 (02:00→20:20)
[2021-11-28 06:00] VITALS: BP 135/69
[2021-11-28] MEDS: K and/or MAG REPLACEMENT MC SCH ×2 (08:00→20:00)
[2021-11-28] MEDS: enoxaparin 30mg/0.3ml syringe SQ SCH (08:05)
[2021-11-28] MEDS: furosemide 20 MG/2 ML vial IV SCH ×2 (08:05→20:19)
[2021-11-28] MEDS: amLODIPine 5mg tablet PO SCH (08:06)
[2021-11-28] MEDS: tamsulosin 0.4mg capsule PO SCH (08:06)
[2021-11-28] MEDS: atorvastatin 20mg tablet PO SCH (08:06)
[2021-11-28] MEDS: aspirin 81mg, enteric-coated 1 TAB TABLET.DR PO SCH (08:07)
[2021-11-28] MEDS: pantoprazole 40mg Tablet.DR PO SCH ×2 (08:07→20:22)
[2021-11-28] MEDS: hyDRALAzine 10mg tablet PO SCH ×3 (08:07→23:53)
[2021-11-28] MEDS: clopidogrel 75mg tablet PO SCH (08:07)
[2021-11-28] MEDS: isosorbide mononitrate 30mg tab.SR.24H PO SCH (08:07)
[2021-11-28] MEDS: docusate sod 100mg capsule PO SCH ×2 (08:07→20:22)
[2021-11-28] MEDS: sodium ferric gluc complex inj 125 MG in normal saline 100ml IV soln 100 ML IV SCH (08:18)
[2021-11-28] MEDS: insulin Lispro (HumaLOG) vial - multi-dose SQ SCH (09:50)
[2021-11-28] MEDS: acetaminophen 325mg tablet PO PRN ×2 (11:49→17:31)
[2021-11-28] MEDS: lactose-reduced food (Ensure Enlive) - 237ml bottle PO SCH ×2 (13:17→17:32)
[2021-11-28 15:00] VITALS: BP 124/61
[2021-11-28] MEDS: JUVEN Smoothie Arginine/Glut./Ca2+Bmb (Juven 19.3pkt) 240ml cup PO SCH (17:31)
[2021-11-28 18:00] VITALS: BP 135/47
--- NOTE | 2021-11-28 18:23 | NUR ---
Patient in room PCU 3
--- NOTE | 2021-11-28 18:23 | NUR ---
Problems reprioritized. Patient report given, questions answered & plan of care reviewed with Scott BEASLEY.
[2021-11-28] MEDS: vancomycin/NS 1 GM ADD-VANTAGE 250 ML IV SCH (20:18)
[2021-11-28] MEDS: insulin glargine (Lantus) pen - multi-dose SQ SCH (21:37)
[2021-11-28] MEDS: Melatonin 3mg tablet PO SCH (21:51)
[2021-11-29 02:00] VITALS: BP 140/71
[2021-11-29] MEDS: metoclopramide 5 mg/ml inj IV SCH ×2 (02:00→08:47)
[2021-11-29 05:53] LABS: BASOPHILS # (AUTO) 0.1 X10'3 (0-0.2); BASOPHILS % (AUTO) 0.8 % (0-1); EOSINOPHILS # (AUTO) 0.5 X10'3 (0-0.9); EOSINOPHILS % (AUTO) 3.8 % (0-6); HEMATOCRIT 27.3 % (42.0-52.0); LYMPHOCYTES # (AUTO) 1.9 X10'3 (1.1-4.8); LYMPHOCYTES % (AUTO) 15.6 % (21-51); MEAN CORPUSCULAR HEMOGLOBIN 30.5 PG (27.0-31.0); MEAN CORPUSCULAR VOLUME 92.7 FL (78-98); MEAN PLATELET VOLUME 9.1 FL (7.4-10.4); MONOCYTES # (AUTO) 1.7 X10'3 (0-0.9); MONOCYTES % (AUTO) 14.2 % (2-12); NEUTROPHILS # (AUTO) 7.8 X10'3 (1.8-7.7); NEUTROPHILS % (AUTO) 65.6 % (42-75); PLATELET COUNT 372 X10'3 (140-440); RED BLOOD COUNT 2.94 X10'6 (4.70-6.10); RED CELL DISTRIBUTION WIDTH 14.7 % (11.5-14.5); WHITE BLOOD COUNT 11.8 X10'3 (4.5-11.0)
[2021-11-29 06:00] VITALS: BP 168/70
[2021-11-29] MEDS ORDERED: CLOP75TA34 PO (08:44)
[2021-11-29] MEDS ORDERED: PANT40TA54 PO (08:44)
[2021-11-29] MEDS ORDERED: FURO40TA4 PO (08:44)
[2021-11-29] MEDS ORDERED: ISOS30TA84 PO (08:44)
[2021-11-29] MEDS ORDERED: hyDRALAzine tablet PO (08:44)
[2021-11-29] MEDS: tamsulosin 0.4mg capsule PO SCH (08:45)
[2021-11-29 08:46] VITALS: BP_SYST 168
[2021-11-29] MEDS: docusate sod 100mg capsule PO SCH (08:46)
[2021-11-29] MEDS: furosemide 20 MG/2 ML vial IV SCH (08:46)
[2021-11-29] MEDS: hyDRALAzine 10mg tablet PO SCH (08:46)
[2021-11-29] MEDS: pantoprazole 40mg Tablet.DR PO SCH (08:46)
[2021-11-29] MEDS: clopidogrel 75mg tablet PO SCH (08:46)
[2021-11-29] MEDS: isosorbide mononitrate 30mg tab.SR.24H PO SCH (08:46)
[2021-11-29] MEDS: amLODIPine 5mg tablet PO SCH (08:46)
[2021-11-29] MEDS: aspirin 81mg, enteric-coated 1 TAB TABLET.DR PO SCH (08:46)
[2021-11-29] MEDS: atorvastatin 20mg tablet PO SCH (08:46)
[2021-11-29] MEDS: enoxaparin 30mg/0.3ml syringe SQ SCH (08:47)
[2021-11-29] MEDS: sodium ferric gluc complex inj 125 MG in normal saline 100ml IV soln 100 ML IV SCH (09:43)
--- NOTE | 2021-11-29 10:14 | NUR ---
Spoke with PT and Roving Inspector about getting front wher Addendum: 11/29/21 at 1017 by Domi Beltran RN Spoke with PT and Roving Inspector about getting front wheel walker for patient to discharge home with.
--- NOTE | 2021-11-29 13:01 | NUR ---
Reviewed discharge information with patient and family. Pt educated on medication (physical copy of hydralazine Rx given), activity, incision care, when to return to the ED, and follow up appointment. Pt and family understood information given, and had no further questions at this time. Pt IV removed. Pt left the facility via wheelchair to private vehicle. Tele box returned to [employer].
--- NOTE | 2021-11-29 15:15 | NUR ---
WOUND INFECTION EDUCATION PROVIDED BY WOUND CARE 1. Patient instructed to call their primary doctor, or go the ED immediately if any of the following symptoms occur: * Increased pain in wound * Increase in drainage from the wound * Redness in the skin surrounding the wound * Warmth in the skin surrounding the wound * Bleeding from the wound * Temperature of 101 or greater 2. If any of these occur while in the hospital tell a nurse immediately. Addendum: 11/29/21 at 1516 by Aysha Puckett RN Amended: Links added.
[2021-11-29] MEDS ORDERED: VANCOMYCIN LEVEL IV ONE (18:30)
== END 2021-11-29 13:09 | disposition home health service (06) | DRG 181 ==
LOC: ER 11:16 → ED HOLD 14:01 → PCU 3S 23:30 → ICU 2S 11-14 18:45 → PCU 3S 11-15 15:07
PROVIDERS: ADMIT Family Medicine; ATTEND Family Medicine
PROC: B41C1ZZ Fluoroscopy of Pelvic Arteries using Low Osmolar Contrast (ICD-10-PCS; 2021-11-09)
PROC: B41G1ZZ Fluoroscopy of Left Lower Extremity Arteries using Low Osmolar Contrast (ICD-10-PCS; 2021-11-09)
PROC: B41F1ZZ Fluoroscopy of Right Lower Extremity Arteries using Low Osmolar Contrast (ICD-10-PCS; 2021-11-09)
PROC: B41F1ZZ Fluoroscopy of Right Lower Extremity Arteries using Low Osmolar Contrast (ICD-10-PCS; 2021-11-14)
PROC: 4A00X4Z Measurement of Central Nervous Electrical Activity, External Approach (ICD-10-PCS; 2021-11-14)
PROC: 041K09Q Bypass Right Femoral Artery to Lower Extremity Artery with Autologous Venous Tissue, Open Approach (ICD-10-PCS; principal; 2021-11-14 16:51)
PROC: 5A09357 Assistance with Respiratory Ventilation, Less than 24 Consecutive Hours, Continuous Positive Airway Pressure (ICD-10-PCS; 2021-11-17)
PROC: 5A09357 Assistance with Respiratory Ventilation, Less than 24 Consecutive Hours, Continuous Positive Airway Pressure (ICD-10-PCS; 2021-11-18)
PROC: 4A02XM4 Measurement of Cardiac Total Activity, External Approach (ICD-10-PCS; 2021-11-20)
PROC: 3E033HZ Introduction of Radioactive Substance into Peripheral Vein, Percutaneous Approach (ICD-10-PCS; 2021-11-20)
PROC: CF141ZZ Planar Nuclear Medicine Imaging of Gallbladder using Technetium 99m (Tc-99m) (ICD-10-PCS; 2021-11-22)
PROC: 0W9B3ZX Drainage of Left Pleural Cavity, Percutaneous Approach, Diagnostic (ICD-10-PCS; 2021-11-22)
PROC: 0W993ZX Drainage of Right Pleural Cavity, Percutaneous Approach, Diagnostic (ICD-10-PCS; 2021-11-22)
DX: E11.52 Type 2 diabetes mellitus with diabetic peripheral angiopathy with gangrene (principal); G93.49 Other encephalopathy; E87.2 Acidosis; J18.9 Pneumonia, unspecified organism; J90 Pleural effusion, not elsewhere classified; I27.81 Cor pulmonale (chronic); N17.9 Acute kidney failure, unspecified; E11.22 Type 2 diabetes mellitus with diabetic chronic kidney disease; L03.115 Cellulitis of right lower limb; E78.5 Hyperlipidemia, unspecified; F41.9 Anxiety disorder, unspecified; D64.9 Anemia, unspecified; I12.9 Hypertensive chronic kidney disease with stage 1 through stage 4 chronic kidney disease, or unspecified chronic kidney disease; N18.30 Chronic kidney disease, stage 3 unspecified; I25.118 Atherosclerotic heart disease of native coronary artery with other forms of angina pectoris; Z20.822 Contact with and (suspected) exposure to COVID-19; R55 Syncope and collapse; I65.22 Occlusion and stenosis of left carotid artery; J40 Bronchitis, not specified as acute or chronic; R00.1 Bradycardia, unspecified; R56.9 Unspecified convulsions; Z79.02 Long term (current) use of antithrombotics/antiplatelets; Z79.4 Long term (current) use of insulin; Z83.3 Family history of diabetes mellitus; Z95.5 Presence of coronary angioplasty implant and graft; Z28.21 Immunization not carried out because of patient refusal; Z79.899 Other long term (current) drug therapy
CPT/HCPCS: 32555; 36245; 36415; 36600; 70450; 71045; 73590; 73620; 74176; 75716; 76000; 76937; 78227; 78452; 80048; 80053; 80061; 80202; 81001; 82272; 82308; 82728; 82803; 82945; 82948; 83036; 83540; 83550; 83605; 83615; 83735; 83880; 83986; 84100; 84132; 84145; 84157; 84484; 85007; 85018; 85025; 85610; 85730; 87040; 87070; 87081; 87811; 89051; 93005; 93017; 93306; 93880; 93922; 93926; 93970; 94660; 94760; 95816; 97110; 97116; 97161; 97530; 99152; 99153; 99285; A4314; A4615; A4618; A6212; A6213; A6253; A6258; A6402; A6449; A6455; A7000; A9500; A9537; C1751; C1758; C1760; C1769; C1894; C9113; G0269; G0378; J0131; J0295; J0360; J0690; J0696; J0780; J1100; J1170; J1644; J1650; J1815; J1940; J2175; J2250; J2270; J2405; J2543; J2704; J2765; J2785; J2805; J2916; J3010; J3370; J3475; J3490; J7030; J7040; J7050; J7120; Q9963; Q9965; Q9967

== ENCOUNTER 2021-12-14 11:40 | Inpatient (IN) | payer MEDICAID ==
[2021-12-13 14:26] LABS: BASOPHILS # (AUTO) 0.1 X10'3 (0-0.2); EOSINOPHILS # (AUTO) 0.4 X10'3 (0-0.9); EOSINOPHILS % (AUTO) 4.9 % (0-6); LYMPHOCYTES # (AUTO) 2.5 X10'3 (1.1-4.8); LYMPHOCYTES % (AUTO) 30.6 % (21-51); MEAN CORPUSCULAR HEMOGLOBIN 30.8 PG (27.0-31.0); MEAN CORPUSCULAR VOLUME 93.3 FL (78-98); MEAN PLATELET VOLUME 9.1 FL (7.4-10.4); MONOCYTES # (AUTO) 0.8 X10'3 (0-0.9); MONOCYTES % (AUTO) 9.7 % (2-12); NEUTROPHILS # (AUTO) 4.5 X10'3 (1.8-7.7); NEUTROPHILS % (AUTO) 53.8 % (42-75); PRE OP HEMATOCRIT 35.8 % (42.0-52.0); PRE OP HEMOGLOBIN 11.8 g/dL (14.0-17.9); PRE OP PLATELET COUNT 223 X10'3 (140-440); RED BLOOD COUNT 3.84 X10'6 (4.70-6.10); RED CELL DISTRIBUTION WIDTH 14.4 % (11.5-14.5)
[2021-12-13 14:31] LABS: CLARITY,URINE CLEAR (Clear); COLOR,URINE YELLOW (Yellow); GLUCOSE, URINE >=1000 mg/dl (Neg); KETONES,URINE NEGATIVE (Neg); LEUKOCYTE ESTERASE ,URINE NEGATIVE (Neg); NITRITES, URINE NEGATIVE (Neg); OCCULT BLOOD,URINE NEGATIVE (Neg); PH,URINE 5.5 (4.8-8.0); PROTEIN,URINE NEGATIVE (Neg); UROBILINOGEN,URINE 0.2 E.U/dL (0.2-1.0)
[2021-12-13 14:37] LABS: ALBUMIN 3.6 G/DL (3.4-5.0); ALBUMIN/GLOBULIN RATIO 0.9 (1.1-1.5); ALKALINE PHOSPHATASE 141 IU/L (46-116); BLOOD UREA NITROGEN 38 MG/DL (7-18); CHLORIDE 104 MMOL/L (99-107); CREATININE 1.65 MG/DL (0.60-1.10); PRE OP ALT 40 U/L (30-65); PRE OP ANION GAP 5 (8-16); PRE OP AST 25 U/L (10-37); PRE OP BILIRUB, TOTAL 0.2 MG/DL (0.0-1.0); PRE OP GLUCOSE 129 MG/DL (70-104); PRE OP POTASSIUM 4.3 MMOL/L (3.4-5.1); PRE OP PROTIME 10.1 SECONDS (9.0-12.0); PRE OP SODIUM 141 MMOL/L (135-145); TOTAL PROTEIN 7.8 G/DL (6.4-8.2); eGFR 42 ML/MIN
[2021-12-13 14:44] LABS: CALCIUM 9.1 MG/DL (8.5-10.1)
[2021-12-13 14:47] LABS: UA COLLECTION TYPE VOIDED
[2021-12-13 14:49] LABS: BACTERIA,URINE FEW /HPF (Neg); RBC,URINE 0-2 /HPF (0-2); SQUAMOUS EPITHELIAL CELL,UR FEW /LPF (FEW); WBC,URINE 0-4 /HPF (0-4)
--- NOTE | 2021-12-13 16:36 | NUR ---
HGB A1C 8.9. DR MINOR NOTIFIED. STATED IF GLUCOSE IS MORE THAN 250 DOS IT WILL BE QUESTIONABLE IF HE WILL PROCEED. GLUCOSE ON PREOP LAB IS 129. PT TAKING PLAVIX AND TO CONTINUE PER DR ROSE. PT IS REFUSING BLOOD PRODUCTS EXCEPT CELL SAVER SO DR ROSE WAS NOTIFIED AND HE WAS OK TO PROCEED WITH SURGERY.
[~2021-12-14] VITALS: Ht 165.1 cm; Wt 70.5 kg
[2021-12-14] VITALS (15 sets, daily range): BP systolic 102–130; BP diastolic 48–77
[~2021-12-14 11:40] MED LIST: AMLO5TAB16 PO; ASPI-611 PO; ATOR40TA72 PO; CLOP75TA33 PO; ERTU5TAB PO; FLO0.4C PO; FURO40TA4 PO; GABA300C PO; HUM100IN SQ; HYDR-4069 PO; INSU100I31 SQ; ISOS30TA84 PO; PANT-47 PO
[2021-12-14] MEDS ORDERED: LIDOcaine 1% (10mg/ml) 2ml vial ONE ×3 (12:36→14:15)
[2021-12-14] MEDS ORDERED: heparin 10,000 units/1 ML INJ ONE (12:36)
[2021-12-14] MEDS ORDERED: protamine sulfate 10mg/ml inj. ONE ×2 (12:45→16:04)
[2021-12-14] MEDS ORDERED: insulin regular, human 10 units/0.1 ml syringe SQ ONE (12:50)
[2021-12-14] MEDS ORDERED: nitroPRUSSIDE (NIPRIDE) (200MCG/ML) 100ML Drip IV SCH (12:55)
[2021-12-14] MEDS ORDERED: phenylephrine inj 10 MG in NS 100ml Intracavernous IC ONE (12:55)
[2021-12-14] MEDS: phenylephrine inj 50 MG in normal saline 250ml IV solN IV SCH (13:00)
[2021-12-14] MEDS ORDERED: cefazolin/dext.iso 2gm/100ml 100 ML IV ONE (13:05)
[2021-12-14] MEDS ORDERED: famotidine 20mg tablet PO ONE (13:07)
[2021-12-14] MEDS ORDERED: ringers solution, lacted 1,000 ML IV SCH ×2 (13:07→13:45)
[2021-12-14] MEDS ORDERED: midazolam 1 mg/ML 2ml injection ONE (13:14)
[2021-12-14] MEDS ORDERED: fentaNYL/PF 50MCG/1 ML 2ML syringe ONE (13:14)
[2021-12-14] MEDS ORDERED: PHENYLephrine 10mg/ml 5ml injection IV ONE (13:41)
[2021-12-14] MEDS ORDERED: niCARDipine in NS 40mg/200ml (0.2mg/ml) IVPB IV ONE (13:41)
[2021-12-14] MEDS ORDERED: sevoflurane 250ml liquid IH ONE (13:41)
[2021-12-14] MEDS ORDERED: nitroGLYCERIN in D5W 50mg/250ml (Tridil) infusion IV ONE (13:41)
[2021-12-14] MEDS ORDERED: meperidine/PF 25mg/ml syringe IV PRN ×3 (13:45)
[2021-12-14] MEDS ORDERED: hydrALAZINE 20mg/ml inj. IV PRN (13:45)
[2021-12-14] MEDS ORDERED: labetalol 20mg/4ml (5mg/ml) syringe IV PRN (13:45)
[2021-12-14] MEDS ORDERED: morphine 2 MG/ML inj. syringe IV PRN (13:45)
[2021-12-14] MEDS ORDERED: acetaminophen 1,000mg/100ml IV 100 ML IV PRN (13:45)
[2021-12-14] MEDS ORDERED: proCHLORperazine 10 MG/2 ml inj IV PRN (13:45)
[2021-12-14] MEDS ORDERED: ondansetron/PF 4mg/2ml inj IV PRN (13:45)
[2021-12-14] MEDS ORDERED: morphine 4 MG/ML inj SYRINge IV PRN (13:45)
[2021-12-14] MEDS ORDERED: rocuronium 10mg/ml inj IV ONE (14:14)
[2021-12-14] MEDS ORDERED: ondansetron/PF 4mg/2ml inj ONE (14:14)
[2021-12-14] MEDS ORDERED: LIDOcaine 2% (20mg/ml) 5ml vial ONE (14:14)
[2021-12-14] MEDS ORDERED: ePHEDrine 50MG/ML INJ. ONE ×2 (14:14→17:01)
[2021-12-14] MEDS ORDERED: dexamethasone sod phosphate 4mg/ml inj. ONE (14:14)
[2021-12-14] MEDS ORDERED: propofol inj 20 ML IV ONE (14:14)
[2021-12-14] MEDS ORDERED: 0.9 % SODIUM CHLORIDE 10 ML VIAL ONE (14:15)
[2021-12-14 16:17] LABS: ABG BASE EXCESS 2.2 mmol/L (-2.0-2.0); ABG HCO3 24.5 mmol/L (22.0-26.0); ABG OXYGEN SATURATION 99.9 % (94-97); ABG PCO2 29.8 mmHg (35.0-48.0); ABG PO2 446.6 mmHg (75.0-100.0); CL (ABG) 104 mmol/L (99-107); FMetHb 0.3 % (0.0-1.5); FO2Hb 99.6 % (94-97); GLUCOSE (ABG) 134 mg/dl (70-104); IONIZED CA (ABG) 1.12 mmol/L (1.10-1.30); K (ABG) 3.4 mmol/L (3.5-5.1); TOTAL HEMOGLOBIN 10.1 G/dl (14.0-17.9)
[2021-12-14] MEDS ORDERED: DESMOPRESSIN IV ONE (16:35)
[2021-12-14] MEDS ORDERED: NORMAL SALINE IV ONE (16:35)
[2021-12-14 16:43] LABS: APTT > 139 SECONDS (22-32)
[2021-12-14] MEDS ORDERED: FENTANYL-0.9 % NACL/PF 100 ML IV PRN ×2 (16:50→16:55)
[2021-12-14] MEDS ORDERED: fentaNYL/PF 50MCG/1 ML 2ML syringe IV PRN (16:50)
[2021-12-14] MEDS ORDERED: naloxone 0.4 mg/ml inj IV PRN (16:55)
--- NOTE | 2021-12-14 17:19 | NUR ---
Received from OR via HOSPITAL BED, accompanied by Anesthesiologist DYAN and report given by Anesthesiolgist. DR. ROSE AT BEDSIDE. PT ARRIVES WITH ET TUBE IN PLACE, LIP AT 21.5 CM, SIZE 8. BAG RESPIRATIONS BEING PROVIDED, PT HAS POSITIVE CAP REFILL, SPO2 99%, 50% fIO2. RR 12, HR 115, BP 114/57. R WRIST ARTERIAL LINE PATENT. LEFT AC 18G PATENT. PT HAS APPROPRIATE RASS SCORE. L NECK INCISION, CLEAN/INTACT WITH SMALL AMOUNT OF ISRAEL BLOOD BENEATH STERISTRIPS. RICA DRAIN AT LEFT NECK SITE PATENT WITH SMALL AMOUNT OF BLOOD IN BULB. F/C PATENT AND DRAINING, CLEAR YELLOW URINE OUTPUT. SCD APPLIED AND CONNECTED. UPON PT ARRIVAL TO ICU ROOM RT AT BEDSIDE AND PT ATTACHED TO VENTILATOR, PT TOLERATING VENT WELL. @17:27 CXR AT BEDSIDE, XR COMPLETED. Addendum: 12/14/21 at 1735 by Luis Antonio White RN Amended: Links added. Addendum: 12/14/21 at 1758 by Luis Antonio White RN PULSE PRESENT IN R DORSALIS WITH DOPPLER, PALPATED PULSE IN LEFT DORSALIS.
[2021-12-14] MEDS: propofol 1000mg/100ml bottle 100 ML IV SCH ×2 (17:38→21:52)
--- NOTE | 2021-12-14 17:40 | NUR ---
4 INCISIONAL SITES WITH STERISTRIPS CLEAN DRY AND INTACT TO R GROIN, R INNER GROIN, RLE LATERAL AND MEDIAL INCISION. Addendum: 12/14/21 at 1743 by Luis Antonio White RN Amended: Links added.
[2021-12-14 17:56] LABS: ABG BASE EXCESS -0.2 mmol/L (-2.0-2.0); ABG HCO3 23.4 mmol/L (22.0-26.0); ABG OXYGEN SATURATION 98.9 % (94-97); ABG PCO2 (T) 34.3 mmHg (35.0-48.0); ABG PO2 (T) 200.8 mmHg (75.0-100.0); FCOHb 0.3 % (0.0-3.9); FMetHb 0.4 % (0.0-1.5); FO2Hb 98.2 % (94-97); PATIENT TEMPERATURE 36.9; RESPIRATORY RATE 12 b/min; TIDAL VOLUME 500 mL; TOTAL HEMOGLOBIN 9.6 G/dl (14.0-17.9)
--- NOTE | 2021-12-14 18:00 | NUR ---
Patient in room CICU 2008. I have received report from brake specialist and had the opportunity to ask questions and assume patient care.
--- NOTE | 2021-12-14 18:00 | NUR ---
RN TO RN REPORT GIVEN TO PHYSICAL THERAPY AID AT BEDSIDE, IN ICU WHERE PT WAS RECOVERED. Belongings LEFT WITH PT AT BEDSIDE IN ICU. PT STABLE ON VENTILATOR. SBP PARAMETERS MAINTAINED 110-120, ON PROPOFOL GTT. FLACC PAIN SCALE 0/10. Special Issues communicated to receiving nurse. Addendum: 12/14/21 at 1822 by Luis Antonio White RN Amended: Links added.
[2021-12-14 18:27] LABS: BASOPHILS # (AUTO) 0.1 X10'3 (0-0.2); BASOPHILS % (AUTO) 1.1 % (0-1); EOSINOPHILS % (AUTO) 0.3 % (0-6); HEMOGLOBIN 8.7 g/dl (14.0-17.9); LYMPHOCYTES # (AUTO) 1.3 X10'3 (1.1-4.8); LYMPHOCYTES % (AUTO) 9.8 % (21-51); MEAN CORPUSCULAR HEMOGLOBIN 31.1 PG (27.0-31.0); MEAN CORPUSCULAR HGB CONC 33.3 g/dL (33.0-36.5); MEAN CORPUSCULAR VOLUME 93.2 FL (78-98); MEAN PLATELET VOLUME 9.1 FL (7.4-10.4); MONOCYTES # (AUTO) 0.2 X10'3 (0-0.9); MONOCYTES % (AUTO) 1.7 % (2-12); NEUTROPHILS # (AUTO) 11.7 X10'3 (1.8-7.7); NEUTROPHILS % (AUTO) 87.1 % (42-75); PLATELET COUNT 163 X10'3 (140-440); RED BLOOD COUNT 2.79 X10'6 (4.70-6.10); RED CELL DISTRIBUTION WIDTH 14.2 % (11.5-14.5); WHITE BLOOD COUNT 13.4 X10'3 (4.5-11.0)
[2021-12-14 18:48] LABS: APTT 24 SECONDS (22-32)
[2021-12-14 18:51] LABS: ALANINE AMINOTRANSFERASE 26 U/L (12-78); ALBUMIN 2.5 G/DL (3.4-5.0); ALBUMIN/GLOBULIN RATIO 0.8 (1.1-1.5); ALKALINE PHOSPHATASE 80 IU/L (46-116); ANION GAP 11 (8-16); ASPARTATE AMINO TRANSFERASE 17 U/L (10-37); BILIRUBIN,TOTAL 0.3 MG/DL (0.1-1.0); BLOOD UREA NITROGEN 37 MG/DL (7-18); BUN/CREATININE RATIO 24.3 (5.4-32.0); CALCIUM 7.9 MG/DL (8.5-10.1); CHLORIDE 106 MMOL/L (99-107); CREATININE 1.52 MG/DL (0.60-1.10); GLUCOSE 202 MG/DL (70-104); POTASSIUM 3.5 MMOL/L (3.5-5.1); SODIUM 141 MMOL/L (135-145); TOTAL CARBON DIOXIDE 24.2 MMOL/L (24-32); TOTAL PROTEIN 5.5 G/DL (6.4-8.2); eGFR 47 ML/MIN
[2021-12-14] MEDS: Potassium Cl inj 20 MEQ in ringers solution, lacted 1,000 ML IV SCH (18:57)
--- NOTE | 2021-12-14 20:46 | NUR ---
Pt has increased oozing at incision dressing. His BP has been kept in the 110-120 range I was told by the recovery agent Dr. Easley wanted, his coags were all normal (PT 11.4/INR 1.1/PTT 24). His actual RICA output has only been 20ml which I first drained when he got here. full stack software developer aware. It appeared to have increased oozing after he had a coughing fit about an hour ago, at that time his sedation was increased to help stop it. Will continue to monitor.
--- NOTE | 2021-12-14 22:27 | NUR ---
Dr. Easley called in to check on pt. Aware he is oozing at the incision site but no large hemotoma or RICA output. Updated on labs and BP. Would like sedation off in the AM so he can be extubated around 0600 or so.
[2021-12-14] MEDS: ceFAZolin inj. 1,000 MG in dextrose 5%-water 50ml 50 ML IV SCH (23:51)
[2021-12-15] VITALS (29 sets, daily range): BP systolic 99–161; BP diastolic 44–72
[2021-12-15] MEDS: Potassium Cl inj 20 MEQ in ringers solution, lacted 1,000 ML IV SCH (01:00)
--- NOTE | 2021-12-15 01:05 | NUR ---
Pt continues to ooze a lot from the incision site. There's no real hematoma around the incision it's nice and soft and there is minimal RICA output, so it doesn't seem like a taylor bleed just oozing from the incision site itself. Again the surgeon was made aware earlier, hemodynamically he is stable with his HR actually coming down and not requiring higher doses of Phenylephrine or anything. Continuing to just place ABD pads to absorb the leakage around the dressing. Keeping SBP between 110-120 still.
[2021-12-15 01:53] LABS: BASOPHILS # (AUTO) 0.1 X10'3 (0-0.2); BASOPHILS % (AUTO) 0.5 % (0-1); EOSINOPHILS % (AUTO) 0 % (0-6); HEMATOCRIT 25.7 % (42.0-52.0); HEMOGLOBIN 8.5 g/dl (14.0-17.9); LYMPHOCYTES # (AUTO) 0.9 X10'3 (1.1-4.8); MEAN CORPUSCULAR VOLUME 93.9 FL (78-98); MEAN PLATELET VOLUME 9.3 FL (7.4-10.4); MONOCYTES # (AUTO) 0.5 X10'3 (0-0.9); MONOCYTES % (AUTO) 3.7 % (2-12); NEUTROPHILS # (AUTO) 12.8 X10'3 (1.8-7.7); NEUTROPHILS % (AUTO) 89.8 % (42-75); PLATELET COUNT 180 X10'3 (140-440); RED BLOOD COUNT 2.74 X10'6 (4.70-6.10); RED CELL DISTRIBUTION WIDTH 14.6 % (11.5-14.5); WHITE BLOOD COUNT 14.3 X10'3 (4.5-11.0)
[2021-12-15 01:56] LABS: ALBUMIN 2.6 G/DL (3.4-5.0); ANION GAP 11 (8-16); BLOOD UREA NITROGEN 41 MG/DL (7-18); BUN/CREATININE RATIO 21.8 (5.4-32.0); CALCIUM 7.9 MG/DL (8.5-10.1); CHLORIDE 104 MMOL/L (99-107); CREATININE 1.88 MG/DL (0.60-1.10); GLUCOSE 372 MG/DL (70-104); SODIUM 137 MMOL/L (135-145); TOTAL CARBON DIOXIDE 22.2 MMOL/L (24-32); TRIGLYCERIDES 76 MG/DL (20-135); eGFR 36 ML/MIN
[2021-12-15 01:59] LABS: POTASSIUM 6.4 MMOL/L (3.5-5.1)
[2021-12-15] MEDS ORDERED: dextrose 50%-water 50ml dispensing syringe IV PRN ×2 (02:05)
[2021-12-15] MEDS ORDERED: glucagon, human recombinant 1mg kit SUBCUT PRN (02:05)
[2021-12-15] MEDS ORDERED: MESSAGE TO PHARMACY PO ONE (02:05)
[2021-12-15] MEDS ORDERED: DEXTROSE 15 GM of carb/4 tabs (each vial/BOTTLE has 4 tablets) PO PRN ×2 (02:05)
[2021-12-15] MEDS: normal saline 1000ml 1,000 ML IV SCH ×3 (02:10→18:13)
--- NOTE | 2021-12-15 02:14 | NUR ---
Dr. Easley notified of high K and glucose. MIVF changed and hyperglycemia protocol ordered.
[2021-12-15 03:18] LABS: ABG BASE EXCESS -3.1 mmol/L (-2.0-2.0); ABG HCO3 21.3 mmol/L (22.0-26.0); ABG OXYGEN SATURATION 95.7 % (94-97); ABG PO2 (T) 84.2 mmHg (75.0-100.0); FCOHb 0.3 % (0.0-3.9); FMetHb 0.4 % (0.0-1.5); PATIENT TEMPERATURE 37.4; PEEP 5 cm H2O; RESPIRATORY RATE 12 b/min; TIDAL VOLUME 500 mL; TOTAL HEMOGLOBIN 9.3 G/dl (14.0-17.9)
[2021-12-15] MEDS: insulin Lispro (HumaLOG) vial - multi-dose SQ SCH ×4 (03:34→20:11)
[2021-12-15] MEDS: ceFAZolin inj. 1,000 MG in dextrose 5%-water 50ml 50 ML IV SCH (08:56)
--- NOTE | 2021-12-15 12:06 | NUR ---
Wound Consult: Pt extubated this AM briefly intubated s/p L carotid endarterectomy this admit per EMR. Pt hx DM A1C 8.9% prior admit 11/09 received DM ed by RIDDHI at that time. Pt hx b/l feet chronic wounds, however, per WOC last admit 11/29 L great toe traumatic partial thickness injury w/ R 4th toe partial thickness abrasion, and R 5th toe DM ulcer eschar. Pending WO assessment this admit w/ R 4th toe and L 4th/5th toes dark purple areas skin intact bedsides L carotid surgical site according to physical assessment at this time. Will monitor for WOC assessment and nutrition intervention needs. Addendum: 12/15/21 at [address] Amended: Links added.
--- NOTE | 2021-12-15 13:49 | NUR ---
PRESSURE ULCER EDUCATION: DEFINITION: A pressure ulcer is an area of skin that breaks down when you stay in one position too long. The constant pressure against the skin reduces the blood flow to that area and the affected tissue dies. CAUSES: "Being bedridden or in a wheelchair "Fragile skin "Having a chronic condition, such as diabetes or vascular disease "Inability to move certain parts of your body without assistance "Older age "Incontinence of urine or stool SYMPTOMS: "A reddened area that DOES NOT turn white when pressed on - this can be the beginning of a pressure ulcer "A blister, deep sore or a crater - these can be advanced pressure ulcers FIRST AID: "Relieve the pressure on this area "Keep the area clean and dry "Call your primary doctor if you see any of the above symptoms "DO NOT massage the area "DO NOT use a donut shaped or ring shaped pillow- these actually interfere with the blood flow and cause complications PREVENTION: "Check for pressure ulcers everyday "Change position at least every two hours to relieve pressure "Use items that help relieve pressure- pillows, sheepskin, foam padding, and powders. "Keep skin clean and dry "Eat healthy well balanced meals "Exercise daily IF YOU SEE ANY OF THESE SYMPTOMS WHILE IN THE HOSPITAL - TELL YOUR NURSE IMMEDIATELY. IF YOU SEE ANY OF THESE SYMPTOMS WHILE AT HOME OR HAVE ANY QUESTIONS OR CONCERNS ABOUT PRESSURE ULCERS - CALL YOUR PRIMARY DOCTOR IMMEDIATELY. Addendum: 12/15/21 at 1350 by Anna Benedict LVN Amended: Links added.
[2021-12-15] MEDS: phenylephrine inj 50 MG in normal saline 250ml IV solN IV SCH (15:18)
[2021-12-15] MEDS ORDERED: HYDROcodone/acetaminophen 10/325mg tab PO PRN (18:40)
[2021-12-15] MEDS: HYDROcodone/acetaminophen 10/325mg tab PO PRN (18:53)
[2021-12-15] MEDS: mineral oil/petrolatum ophthal oint EACHEYE SCH (20:00)
[2021-12-15] MEDS: insulin glargine (Lantus) pen - multi-dose SQ SCH (21:00)
[2021-12-15] MEDS ORDERED: hydrALAZINE 20mg/ml inj. IV PRN (21:50)
[2021-12-15] MEDS ORDERED: nitroGLYCERIN 0.4mg/hour patch TD ONE (21:50)
[2021-12-15] MEDS ORDERED: nitroPRUSSIDE (NIPRIDE) (200MCG/ML) 100ML Drip IV SCH (23:25)
[2021-12-16] VITALS (23 sets, daily range): BP systolic 100–178; BP diastolic 48–87
[2021-12-16] MEDS: mineral oil/petrolatum ophthal oint EACHEYE SCH ×4 (02:00→20:00)
[2021-12-16] MEDS ORDERED: LIDOcaine 1%/PF 5ML 10 MG/ML VIAL SQ ONE (02:15)
[2021-12-16] MEDS: ondansetron/PF 4mg/2ml inj IV PRN ×3 (02:21→17:30)
[2021-12-16] MEDS: normal saline 1000ml 1,000 ML IV SCH ×3 (02:24→21:00)
[2021-12-16 03:11] LABS: BASOPHILS # (AUTO) 0.1 X10'3 (0-0.2); BASOPHILS % (AUTO) 0.8 % (0-1); EOSINOPHILS # (AUTO) 0.2 X10'3 (0-0.9); EOSINOPHILS % (AUTO) 1.5 % (0-6); LYMPHOCYTES # (AUTO) 3.1 X10'3 (1.1-4.8); LYMPHOCYTES % (AUTO) 21.6 % (21-51); MEAN CORPUSCULAR HEMOGLOBIN 30.9 PG (27.0-31.0); MEAN CORPUSCULAR HGB CONC 32.5 g/dL (33.0-36.5); MEAN CORPUSCULAR VOLUME 95.1 FL (78-98); MEAN PLATELET VOLUME 9.3 FL (7.4-10.4); MONOCYTES # (AUTO) 1.4 X10'3 (0-0.9); MONOCYTES % (AUTO) 10.1 % (2-12); NEUTROPHILS # (AUTO) 9.4 X10'3 (1.8-7.7); PLATELET COUNT 148 X10'3 (140-440); RED BLOOD COUNT 2.28 X10'6 (4.70-6.10); WHITE BLOOD COUNT 14.3 X10'3 (4.5-11.0)
[2021-12-16 03:13] LABS: HEMATOCRIT 21.7 % (42.0-52.0)
[2021-12-16 03:16] LABS: ALBUMIN 2.5 G/DL (3.4-5.0); ANION GAP 8 (8-16); BLOOD UREA NITROGEN 34 MG/DL (7-18); BUN/CREATININE RATIO 23.3 (5.4-32.0); CALCIUM 8.2 MG/DL (8.5-10.1); CHLORIDE 109 MMOL/L (99-107); CREATININE 1.46 MG/DL (0.60-1.10); GLUCOSE 222 MG/DL (70-104); POTASSIUM 4.5 MMOL/L (3.5-5.1); SODIUM 143 MMOL/L (135-145); TOTAL CARBON DIOXIDE 26.1 MMOL/L (24-32); eGFR 49 ML/MIN
--- NOTE | 2021-12-16 06:49 | NUR ---
Patient in room CICU 2008. I have received report from RAMOS Velazquez and had the opportunity to ask questions and assume patient care.
[2021-12-16] MEDS ORDERED: REG INSULIN SQ SCH (08:00)
[2021-12-16] MEDS ORDERED: hydrALAZINE 25 MG tablet PO SCH (08:00)
[2021-12-16] MEDS ORDERED: HUM INSULIN NPH SQ SCH (08:00)
[2021-12-16] MEDS: atorvastatin 20mg tablet PO SCH (08:19)
[2021-12-16] MEDS: amLODIPine 5mg tablet PO SCH (08:19)
[2021-12-16] MEDS: gabapentin 300mg capsule PO SCH ×2 (08:19→21:20)
[2021-12-16] MEDS: isosorbide mononitrate 30mg tab.SR.24H PO SCH (08:19)
[2021-12-16] MEDS: tamsulosin 0.4mg capsule PO SCH (08:19)
[2021-12-16] MEDS: aspirin 81mg, enteric-coated 1 TAB TABLET.DR PO SCH (08:20)
[2021-12-16] MEDS: pantoprazole 40mg Tablet.DR PO SCH (08:20)
[2021-12-16] MEDS: furosemide 40mg tablet PO SCH ×2 (08:20→21:20)
[2021-12-16] MEDS: clopidogrel 75mg tablet PO SCH (08:20)
--- NOTE | 2021-12-16 08:25 | NUR ---
Contacted pharmacy for missing 10mg hydralazine
--- NOTE | 2021-12-16 09:06 | NUR ---
Contacted pharmacy for missing dose of hydralazine. Addendum: 12/16/21 at 0908 by Domi Beltran RN Medication is ready. Sent telephone technician to retrieve medication.
[2021-12-16] MEDS: insulin Lispro (HumaLOG) vial - multi-dose SQ SCH ×2 (09:46→13:22)
[2021-12-16] MEDS: hyDRALAzine 10mg tablet PO SCH ×3 (09:47→21:20)
[2021-12-16] MEDS: HYDROcodone/acetaminophen 10/325mg tab PO PRN (10:14)
--- NOTE | 2021-12-16 13:30 | NUR ---
Spoke with Dr. Easley about pt vomiting. Ordered Reglan per MD.
[2021-12-16] MEDS: metoclopramide 5 mg/ml inj IV SCH ×2 (14:14→21:20)
--- NOTE | 2021-12-16 14:17 | NUR ---
Dr. Lance at bedside change pain medications for patient. Pt states that Comstock causes him to be nauseated. Will swith to Percocet per MD.
[2021-12-16] MEDS: ferrous sulfate 300mg/5ml UD oral liquid PO SCH (17:43)
[2021-12-16] MEDS: oxyCODONE/APAP 10/325mg tablet PO PRN ×2 (17:44→21:21)
--- NOTE | 2021-12-16 19:25 | NUR ---
Patient in room PCU 3023. I have received report from Angella Goddard RN and had the opportunity to ask questions and assume patient care.
--- NOTE | 2021-12-16 19:47 | NUR ---
1800 -1944 Received report and assumed care of pt. Family at bedside. Pt is resting in bed denies current pain and discomfort denies nausea. Report given to INTERIOR PLANT CARETAKER. pt transferred to [facility] on NC 3 L and tele monitor in place . No difficulties with transfer. Family at bedside.
[2021-12-16] MEDS: insulin glargine (Lantus) pen - multi-dose SQ SCH (21:00)
[2021-12-16] MEDS ORDERED: insulin glargine (Lantus) pen - multi-dose SQ SCH (21:00)
[2021-12-17] MEDS: mineral oil/petrolatum ophthal oint EACHEYE SCH ×4 (01:17→20:00)
[2021-12-17] MEDS: metoclopramide 5 mg/ml inj IV SCH ×4 (01:49→21:03)
[2021-12-17] MEDS: oxyCODONE/APAP 10/325mg tablet PO PRN ×2 (01:50→09:51)
[2021-12-17 02:00] VITALS: BP 135/58
[2021-12-17] MEDS: normal saline 1000ml 1,000 ML IV SCH (02:05)
[2021-12-17 06:00] VITALS: BP 129/61
--- NOTE | 2021-12-17 06:30 | NUR ---
Problems reprioritized. Patient report given, questions answered & plan of care reviewed with Annabelle BEASLEY.
[2021-12-17 07:01] LABS: BASOPHILS % (AUTO) 0.4 % (0-1); EOSINOPHILS % (AUTO) 0.3 % (0-6); LYMPHOCYTES # (AUTO) 1.9 X10'3 (1.1-4.8); LYMPHOCYTES % (AUTO) 16.3 % (21-51); MEAN CORPUSCULAR HEMOGLOBIN 30.9 PG (27.0-31.0); MEAN CORPUSCULAR HGB CONC 32.8 g/dL (33.0-36.5); MEAN CORPUSCULAR VOLUME 94.3 FL (78-98); MEAN PLATELET VOLUME 9.3 FL (7.4-10.4); MONOCYTES # (AUTO) 1.9 X10'3 (0-0.9); MONOCYTES % (AUTO) 16.4 % (2-12); NEUTROPHILS # (AUTO) 7.6 X10'3 (1.8-7.7); NEUTROPHILS % (AUTO) 66.6 % (42-75); PLATELET COUNT 164 X10'3 (140-440); RED BLOOD COUNT 2.11 X10'6 (4.70-6.10); RED CELL DISTRIBUTION WIDTH 14.2 % (11.5-14.5); WHITE BLOOD COUNT 11.4 X10'3 (4.5-11.0)
[2021-12-17 07:18] LABS: HEMOGLOBIN 6.5 g/dl (14.0-17.9)
[2021-12-17 07:19] LABS: HEMATOCRIT 19.9 % (42.0-52.0)
--- NOTE | 2021-12-17 07:32 | NUR ---
Patient in room PCU 3023. I have received report from RAMOS HOLT, and had the opportunity to ask questions and assume patient care. CRITICAL LABS - HGB 6.5/HCT 19.9. MESSAGE LEFT WITH BOTH NUMBERS.
[2021-12-17 07:35] LABS: ALBUMIN 2.3 G/DL (3.4-5.0); ANION GAP 8 (8-16); BLOOD UREA NITROGEN 28 MG/DL (7-18); BUN/CREATININE RATIO 17.4 (5.4-32.0); CHLORIDE 106 MMOL/L (99-107); CREATININE 1.61 MG/DL (0.60-1.10); GLUCOSE 211 MG/DL (70-104); POTASSIUM 4.1 MMOL/L (3.5-5.1); SODIUM 142 MMOL/L (135-145); TOTAL CARBON DIOXIDE 27.9 MMOL/L (24-32); eGFR 44 ML/MIN
[2021-12-17 07:59] LABS: NEUTROPHILS % (MANUAL) 72 % (42-75); TOTAL CELLS COUNTED 100
[2021-12-17 08:00] LABS: PLATELET ESTIMATE NORMAL
--- NOTE | 2021-12-17 09:22 | NUR ---
CRITICAL LAB SHARED WITH PT AND . PT AND EDUCATED ON THE BENEFITS OF BLOOD PRODUCTS AND ENCOURAGED TO RECONSIDER REFUSAL. PT SAYS NO.
[2021-12-17] MEDS: furosemide 40mg tablet PO SCH ×2 (09:45→21:03)
[2021-12-17] MEDS: isosorbide mononitrate 30mg tab.SR.24H PO SCH (09:45)
[2021-12-17] MEDS: atorvastatin 20mg tablet PO SCH (09:45)
[2021-12-17] MEDS: aspirin 81mg, enteric-coated 1 TAB TABLET.DR PO SCH (09:46)
[2021-12-17] MEDS: amLODIPine 5mg tablet PO SCH (09:46)
[2021-12-17] MEDS: gabapentin 300mg capsule PO SCH ×2 (09:46→21:03)
[2021-12-17] MEDS: tamsulosin 0.4mg capsule PO SCH (09:46)
[2021-12-17] MEDS: hyDRALAzine 10mg tablet PO SCH ×3 (09:47→21:03)
--- NOTE | 2021-12-17 10:44 | NUR ---
CONTACTED DR. ROSE CONCERNING CRITICAL LABS, RECEIVED ORDERS TO ADVANCE DIET TOLERATED AND IV KVO. Addendum: 12/17/21 at 1918 by Annabelle Cloud RN CRITICAL LABS REPORTED: HGB 6.5, HCT 19.9. PROVIDER NOTIFIED.
[2021-12-17 11:00] VITALS: BP 106/56
[2021-12-17] MEDS: clopidogrel 75mg tablet PO SCH (12:20)
[2021-12-17] MEDS: pantoprazole 40mg Tablet.DR PO SCH (12:20)
[2021-12-17] MEDS: ferrous sulfate 300mg/5ml UD oral liquid PO SCH ×3 (12:22→17:31)
[2021-12-17] MEDS: insulin Lispro (HumaLOG) vial - multi-dose SQ SCH ×2 (13:55→21:17)
[2021-12-17 15:00] VITALS: BP 104/54
[2021-12-17] MEDS: acetaminophen 325mg tablet PO PRN (17:52)
[2021-12-17] MEDS: insulin glargine (Lantus) pen - multi-dose SQ SCH (21:18)
[2021-12-17 22:00] VITALS: BP 158/51
[2021-12-18] MEDS: metoclopramide 5 mg/ml inj IV SCH ×4 (02:00→20:00)
[2021-12-18] MEDS: mineral oil/petrolatum ophthal oint EACHEYE SCH (02:00)
[2021-12-18] MEDS: normal saline 1000ml 1,000 ML IV SCH (03:29)
[2021-12-18] MEDS: acetaminophen 325mg tablet PO PRN (04:08)
[2021-12-18 06:00] VITALS: BP 133/22
[2021-12-18 06:27] LABS: BASOPHILS # (AUTO) 0.1 X10'3 (0-0.2); BASOPHILS % (AUTO) 0.7 % (0-1); EOSINOPHILS # (AUTO) 0.1 X10'3 (0-0.9); EOSINOPHILS % (AUTO) 1.2 % (0-6); LYMPHOCYTES # (AUTO) 1.7 X10'3 (1.1-4.8); LYMPHOCYTES % (AUTO) 18.3 % (21-51); MEAN CORPUSCULAR HGB CONC 33.1 g/dL (33.0-36.5); MEAN CORPUSCULAR VOLUME 93.6 FL (78-98); MEAN PLATELET VOLUME 8.9 FL (7.4-10.4); MONOCYTES # (AUTO) 1.3 X10'3 (0-0.9); MONOCYTES % (AUTO) 14.1 % (2-12); NEUTROPHILS # (AUTO) 6.1 X10'3 (1.8-7.7); NEUTROPHILS % (AUTO) 65.7 % (42-75); PLATELET COUNT 190 X10'3 (140-440); RED BLOOD COUNT 2.07 X10'6 (4.70-6.10); RED CELL DISTRIBUTION WIDTH 13.7 % (11.5-14.5); WHITE BLOOD COUNT 9.3 X10'3 (4.5-11.0)
--- NOTE | 2021-12-18 06:30 | NUR ---
Problems reprioritized. Patient report given, questions answered & plan of care reviewed with VNAI. Addendum: 12/18/21 at 0720 by Navjot Perez RN Amended: Links added.
[2021-12-18 06:40] LABS: ALBUMIN 2.2 G/DL (3.4-5.0); ANION GAP 7 (8-16); BLOOD UREA NITROGEN 21 MG/DL (7-18); BUN/CREATININE RATIO 12.7 (5.4-32.0); CALCIUM 7.9 MG/DL (8.5-10.1); CHLORIDE 101 MMOL/L (99-107); CREATININE 1.66 MG/DL (0.60-1.10); GLUCOSE 248 MG/DL (70-104); POTASSIUM 3.9 MMOL/L (3.5-5.1); SODIUM 138 MMOL/L (135-145); TOTAL CARBON DIOXIDE 29.9 MMOL/L (24-32); eGFR 42 ML/MIN
[2021-12-18 06:45] LABS: HEMATOCRIT 19.4 % (42.0-52.0); HEMOGLOBIN 6.4 g/dl (14.0-17.9)
--- NOTE | 2021-12-18 07:40 | NUR ---
Patient in room PCU 3023. I have received report from RAMOS BARR, and had the opportunity to ask questions and assume patient care.
--- NOTE | 2021-12-18 07:58 | NUR ---
NOTIFIED CRITICAL LABS TO , HGB 6.4, HCT 19.4. NO NEW ORDERS.
[2021-12-18] MEDS: insulin Lispro (HumaLOG) vial - multi-dose SQ SCH ×2 (09:24→21:26)
[2021-12-18] MEDS: isosorbide mononitrate 30mg tab.SR.24H PO SCH (09:26)
[2021-12-18] MEDS: aspirin 81mg, enteric-coated 1 TAB TABLET.DR PO SCH (09:26)
[2021-12-18] MEDS: atorvastatin 20mg tablet PO SCH (09:27)
[2021-12-18] MEDS: amLODIPine 5mg tablet PO SCH (09:27)
[2021-12-18] MEDS: pantoprazole 40mg Tablet.DR PO SCH (09:27)
[2021-12-18] MEDS: clopidogrel 75mg tablet PO SCH (09:27)
[2021-12-18] MEDS: gabapentin 300mg capsule PO SCH ×2 (09:28→20:09)
[2021-12-18] MEDS: ferrous sulfate 300mg/5ml UD oral liquid PO SCH ×3 (09:28→20:09)
[2021-12-18] MEDS: hyDRALAzine 10mg tablet PO SCH ×3 (09:31→21:17)
[2021-12-18 11:00] VITALS: BP 126/64
[2021-12-18] MEDS: tamsulosin 0.4mg capsule PO SCH (13:35)
[2021-12-18 16:47] VITALS: BP 131/63
[2021-12-18 19:00] VITALS: BP 128/62
--- NOTE | 2021-12-18 19:21 | NUR ---
Problems reprioritized. Patient report given, questions answered & plan of care reviewed with RAMOS BARR .
[2021-12-18] MEDS: insulin glargine (Lantus) pen - multi-dose SQ SCH (21:28)
[2021-12-18 22:00] VITALS: BP 127/70
[2021-12-19 02:00] VITALS: BP 130/66
[2021-12-19] MEDS: metoclopramide 5 mg/ml inj IV SCH ×4 (02:00→20:00)
[2021-12-19 06:00] VITALS: BP 140/69
--- NOTE | 2021-12-19 06:28 | NUR ---
Problems reprioritized. Patient report given, questions answered & plan of care reviewed with VANI. Addendum: 12/19/21 at 0629 by Navjot Perez RN Amended: Links added.
[2021-12-19 06:36] LABS: BASOPHILS # (AUTO) 0.1 X10'3 (0-0.2); BASOPHILS % (AUTO) 0.7 % (0-1); EOSINOPHILS # (AUTO) 0.4 X10'3 (0-0.9); EOSINOPHILS % (AUTO) 4.2 % (0-6); LYMPHOCYTES % (AUTO) 20.8 % (21-51); MEAN CORPUSCULAR HEMOGLOBIN 31.5 PG (27.0-31.0); MEAN CORPUSCULAR HGB CONC 33.7 g/dL (33.0-36.5); MEAN CORPUSCULAR VOLUME 93.4 FL (78-98); MEAN PLATELET VOLUME 8.3 FL (7.4-10.4); MONOCYTES # (AUTO) 1.1 X10'3 (0-0.9); MONOCYTES % (AUTO) 11.5 % (2-12); NEUTROPHILS # (AUTO) 6.1 X10'3 (1.8-7.7); NEUTROPHILS % (AUTO) 62.8 % (42-75); PLATELET COUNT 224 X10'3 (140-440); RED BLOOD COUNT 2.14 X10'6 (4.70-6.10); RED CELL DISTRIBUTION WIDTH 14.5 % (11.5-14.5); WHITE BLOOD COUNT 9.7 X10'3 (4.5-11.0)
[2021-12-19 06:42] LABS: HEMOGLOBIN 6.7 g/dl (14.0-17.9)
[2021-12-19 06:46] LABS: ALBUMIN 2.2 G/DL (3.4-5.0); ANION GAP 5 (8-16); BLOOD UREA NITROGEN 17 MG/DL (7-18); BUN/CREATININE RATIO 11.4 (5.4-32.0); CALCIUM 7.8 MG/DL (8.5-10.1); CHLORIDE 103 MMOL/L (99-107); CREATININE 1.49 MG/DL (0.60-1.10); GLUCOSE 199 MG/DL (70-104); POTASSIUM 3.5 MMOL/L (3.5-5.1); SODIUM 137 MMOL/L (135-145); eGFR 48 ML/MIN
--- NOTE | 2021-12-19 06:46 | NUR ---
Patient in room PCU 3023. I have received report from RAMOS BARR, and had the opportunity to ask questions and assume patient care.
--- NOTE | 2021-12-19 07:11 | NUR ---
VOICEMAIL LEFT TO MD CONCERNING CRITICAL LAB VALUES, HGB 6.7, HCT 20.
--- NOTE | 2021-12-19 08:33 | NUR ---
Initial: Pt s/p L carotid endarterectomy this admit per EMR. Pt previously on Clear liquids, just advanced to Full liquids 12/17, avg intake 41% of meals not meeting needs. Recommend advancing to Carb control diet. Pt can also benefit from Glucerna TID given 5 days inadequate diet order. LBM 12/18. Will continue to monitor. Recs: 1. Advance to Carb control diet 2. Glucerna TID 3. Bowel care per rx 4. Weekly wts Addendum: 12/19/21 at [address] Amended: Links added.
[2021-12-19] MEDS: clopidogrel 75mg tablet PO SCH (09:30)
[2021-12-19] MEDS: aspirin 81mg, enteric-coated 1 TAB TABLET.DR PO SCH (09:30)
[2021-12-19] MEDS: tamsulosin 0.4mg capsule PO SCH (09:30)
[2021-12-19] MEDS: gabapentin 300mg capsule PO SCH ×2 (09:31→21:10)
[2021-12-19] MEDS: atorvastatin 20mg tablet PO SCH (09:31)
[2021-12-19] MEDS: amLODIPine 5mg tablet PO SCH (09:31)
[2021-12-19] MEDS: isosorbide mononitrate 30mg tab.SR.24H PO SCH (09:31)
[2021-12-19] MEDS: pantoprazole 40mg Tablet.DR PO SCH (09:31)
[2021-12-19] MEDS: hyDRALAzine 10mg tablet PO SCH ×3 (09:32→21:10)
[2021-12-19] MEDS: ferrous sulfate 300mg/5ml UD oral liquid PO SCH ×3 (09:32→17:51)
[2021-12-19] MEDS: insulin Lispro (HumaLOG) vial - multi-dose SQ SCH ×2 (09:41→14:33)
[2021-12-19] MEDS: acetaminophen 325mg tablet PO PRN ×2 (10:52→21:07)
[2021-12-19 10:55] VITALS: BP 137/68
--- NOTE | 2021-12-19 11:27 | NUR ---
PT REQUESTED ORAL IRON SOLUTION TO BE CHANGED TO IV. CHANGE APPROVED BY , AND STATED THAT HE WANTS DOSAGE TO REMAIN THE SAME. PHARMACY CONSULTED FOR THE CHANGE.
--- NOTE | 2021-12-19 11:31 | NUR ---
DIETARY NOTIFIED THAT PT EATS FOOD FROM HOME AND APPEARS TO BE THRIVING. JESUS CLAUDIO DC'Danny.
[2021-12-19 14:07] VITALS: BP 102/48
--- NOTE | 2021-12-19 14:47 | NUR ---
DRESSING REMOVED PER MD ORDERS
[2021-12-19 18:00] VITALS: BP 132/69
--- NOTE | 2021-12-19 18:39 | NUR ---
Problems reprioritized. Patient report given, questions answered & plan of care reviewed with RAMOS LOPEZ.
[2021-12-19] MEDS: insulin glargine (Lantus) pen - multi-dose SQ SCH (21:38)
[2021-12-20 02:00] VITALS: BP 138/67
[2021-12-20] MEDS: metoclopramide 5 mg/ml inj IV SCH ×2 (02:00→07:55)
[2021-12-20 06:00] VITALS: BP 140/69
--- NOTE | 2021-12-20 06:30 | NUR ---
received report from beatriz huerta
[2021-12-20] MEDS: amLODIPine 5mg tablet PO SCH (07:50)
[2021-12-20] MEDS: gabapentin 300mg capsule PO SCH (07:51)
[2021-12-20] MEDS: atorvastatin 20mg tablet PO SCH (07:51)
[2021-12-20] MEDS: isosorbide mononitrate 30mg tab.SR.24H PO SCH (07:52)
[2021-12-20] MEDS: aspirin 81mg, enteric-coated 1 TAB TABLET.DR PO SCH (07:53)
[2021-12-20] MEDS: tamsulosin 0.4mg capsule PO SCH (07:53)
[2021-12-20] MEDS: ferrous sulfate 300mg/5ml UD oral liquid PO SCH ×2 (07:54→12:54)
[2021-12-20] MEDS: pantoprazole 40mg Tablet.DR PO SCH (07:54)
[2021-12-20] MEDS: hyDRALAzine 10mg tablet PO SCH ×2 (07:54→12:52)
[2021-12-20] MEDS: clopidogrel 75mg tablet PO SCH (07:55)
[2021-12-20] MEDS: acetaminophen 325mg tablet PO PRN (09:05)
[2021-12-20 10:30] VITALS: BP 136/69
[2021-12-20 12:52] VITALS: BP_SYST 141
--- NOTE | 2021-12-20 13:20 | NUR ---
witnessed skilled nursing professional removed bilateral iv, cannuals intact
--- NOTE | 2021-12-20 13:23 | NUR ---
pt d/c with instructions, understanding of instruction and w/all belongings including home meds from pharmacy, in wheelchair accompanied by family and staff to private vehicle to go home and f/u w/pcp
== END 2021-12-20 13:30 | disposition home or self-care (01) | DRG 24 ==
LOC: PAS IN 11:40 → CICU 2S 16:17 → PCU 3S 12-16 19:45
PROVIDERS: ADMIT Surgery; ATTEND Surgery
PROC: 03CN0ZZ Extirpation of Matter from Left External Carotid Artery, Open Approach (ICD-10-PCS; 2021-12-14)
PROC: 03CL0ZZ Extirpation of Matter from Left Internal Carotid Artery, Open Approach (ICD-10-PCS; 2021-12-14)
PROC: 03UL0KZ Supplement Left Internal Carotid Artery with Nonautologous Tissue Substitute, Open Approach (ICD-10-PCS; 2021-12-14)
PROC: 03UJ0KZ Supplement Left Common Carotid Artery with Nonautologous Tissue Substitute, Open Approach (ICD-10-PCS; 2021-12-14)
PROC: 03U Upper Arteries, Supplement (ICD-10-PCS; 2021-12-14)
PROC: 4A10X4Z Monitoring of Central Nervous Electrical Activity, External Approach (ICD-10-PCS; 2021-12-14)
PROC: 03CJ0ZZ Extirpation of Matter from Left Common Carotid Artery, Open Approach (ICD-10-PCS; principal; 2021-12-14 13:41)
DX: I65.22 Occlusion and stenosis of left carotid artery (principal); I73.9 Peripheral vascular disease, unspecified
CPT/HCPCS: 36415; 36600; 71045; 80048; 80053; 81001; 82330; 82435; 82803; 82947; 82948; 84132; 84295; 84478; 85007; 85018; 85025; 85610; 85730; 86885; 86900; 86901; 87081; 94002; 94003; 94760; 95813; 95816; 97116; 97162; 97530; A4615; A4618; A6253; A6258; A6402; A6449; A7000; C1758; C1768; C1887; G0378; J0360; J0690; J1100; J1644; J1815; J2250; J2370; J2405; J2704; J2720; J2765; J3010; J3480; J3490; J7030; J7040; J7060; J7120

== ENCOUNTER 2021-12-26 22:28 | Emergency (ER) | payer MEDICAID ==
[~2021-12-26] VITALS: Ht 160 cm; Wt 65.9 kg
[2021-12-26 22:45] VITALS: BP 115/66
[2021-12-26] MEDS ORDERED: CEPH250T PO (23:41)
[2021-12-26] MEDS ORDERED: cephalexin 250mg capsule PO ONE (23:45)
--- NOTE | 2021-12-26 23:51 | NUR ---
dressing applied by tech po med given by nurse
== END 2021-12-26 23:53 | disposition home or self-care (01) ==
LOC: ER 22:30
DX: T81.9XXA Unspecified complication of procedure, initial encounter (principal); E11.9 Type 2 diabetes mellitus without complications; Z87.81 Personal history of (healed) traumatic fracture; Z79.899 Other long term (current) drug therapy; Z79.82 Long term (current) use of aspirin
CPT/HCPCS: 99283

== ENCOUNTER 2021-12-29 19:11 | Emergency (ER) | payer MEDICAID ==
[~2021-12-29] VITALS: Ht 160 cm; Wt 125.0 kg
[~2021-12-29 19:11] MED LIST changes: +CEPH250T PO
[2021-12-29 20:24] LABS: BASOPHILS # (AUTO) 0.1 X10'3 (0-0.2); EOSINOPHILS # (AUTO) 0.4 X10'3 (0-0.9); EOSINOPHILS % (AUTO) 4.8 % (0-6); HEMATOCRIT 26.6 % (42.0-52.0); HEMOGLOBIN 8.9 g/dl (14.0-17.9); LYMPHOCYTES # (AUTO) 2.1 X10'3 (1.1-4.8); LYMPHOCYTES % (AUTO) 27.4 % (21-51); MEAN CORPUSCULAR HEMOGLOBIN 30.9 PG (27.0-31.0); MEAN CORPUSCULAR HGB CONC 33.4 g/dL (33.0-36.5); MEAN CORPUSCULAR VOLUME 92.5 FL (78-98); MEAN PLATELET VOLUME 7.6 FL (7.4-10.4); MONOCYTES # (AUTO) 0.6 X10'3 (0-0.9); MONOCYTES % (AUTO) 7.7 % (2-12); NEUTROPHILS # (AUTO) 4.5 X10'3 (1.8-7.7); NEUTROPHILS % (AUTO) 59.1 % (42-75); PLATELET COUNT 369 X10'3 (140-440); RED BLOOD COUNT 2.88 X10'6 (4.70-6.10); RED CELL DISTRIBUTION WIDTH 15.1 % (11.5-14.5); WHITE BLOOD COUNT 7.7 X10'3 (4.5-11.0)
[2021-12-29 21:03] LABS: ALANINE AMINOTRANSFERASE 23 U/L (12-78); ALBUMIN 2.9 G/DL (3.4-5.0); ALBUMIN/GLOBULIN RATIO 0.8 (1.1-1.5); ALKALINE PHOSPHATASE 104 IU/L (46-116); ANION GAP 5 (8-16); ASPARTATE AMINO TRANSFERASE 17 U/L (10-37); BILIRUBIN,TOTAL 0.1 MG/DL (0.1-1.0); BLOOD UREA NITROGEN 33 MG/DL (7-18); BUN/CREATININE RATIO 16.8 (5.4-32.0); CALCIUM 8.3 MG/DL (8.5-10.1); CHLORIDE 101 MMOL/L (99-107); CREATININE 1.97 MG/DL (0.60-1.10); GLUCOSE 243 MG/DL (70-104); POTASSIUM 4.8 MMOL/L (3.5-5.1); SODIUM 136 MMOL/L (135-145); TOTAL CARBON DIOXIDE 30.1 MMOL/L (24-32); TOTAL PROTEIN 6.6 G/DL (6.4-8.2); eGFR 35 ML/MIN
[2021-12-29] MEDS ORDERED: clindamycin 150mg capsule PO ONE (23:15)
[2021-12-29] MEDS ORDERED: CLIN-142 PO (23:19)
[2021-12-29 23:50] VITALS: BP 138/68
== END 2021-12-29 23:51 | disposition home or self-care (01) ==
LOC: ER 19:12
DX: T81.9XXA Unspecified complication of procedure, initial encounter (principal); E11.9 Type 2 diabetes mellitus without complications; Z87.81 Personal history of (healed) traumatic fracture; Z79.899 Other long term (current) drug therapy; Z79.1 Long term (current) use of non-steroidal anti-inflammatories (NSAID); Z79.2 Long term (current) use of antibiotics
CPT/HCPCS: 36415; 71045; 80053; 83605; 84145; 85025; 87040; 99284

== ENCOUNTER 2022-01-28 06:43 | Inpatient (IN) | payer MEDICAID ==
[~2022-01-28] VITALS: Ht 160 cm; Wt 65.9 kg
[~2022-01-28 06:43] MED LIST changes: -CEPH250T PO
[2022-01-28] MEDS ORDERED: piperacillin/tazo 3.375gm/50ml 50 ML IV ONE (10:30)
[2022-01-28] MEDS ORDERED: vancomycin/NS 1 GM ADD-VANTAGE 250 ML IV ONE (10:30)
[2022-01-28 12:32] LABS: BASOPHILS # (AUTO) 0.1 X10'3 (0-0.2); BASOPHILS % (AUTO) 0.7 % (0-1); EOSINOPHILS # (AUTO) 0.1 X10'3 (0-0.9); EOSINOPHILS % (AUTO) 0.5 % (0-6); HEMATOCRIT 37.4 % (42.0-52.0); LYMPHOCYTES # (AUTO) 1.7 X10'3 (1.1-4.8); LYMPHOCYTES % (AUTO) 10.5 % (21-51); MEAN CORPUSCULAR HEMOGLOBIN 28.7 PG (27.0-31.0); MEAN CORPUSCULAR VOLUME 89.7 FL (78-98); MEAN PLATELET VOLUME 8.5 FL (7.4-10.4); MONOCYTES # (AUTO) 1.1 X10'3 (0-0.9); MONOCYTES % (AUTO) 6.5 % (2-12); NEUTROPHILS # (AUTO) 13.4 X10'3 (1.8-7.7); NEUTROPHILS % (AUTO) 81.8 % (42-75); PLATELET COUNT 429 X10'3 (140-440); RED BLOOD COUNT 4.17 X10'6 (4.70-6.10); RED CELL DISTRIBUTION WIDTH 14.3 % (11.5-14.5); WHITE BLOOD COUNT 16.3 X10'3 (4.5-11.0)
[2022-01-28 12:38] LABS: ALANINE AMINOTRANSFERASE 18 U/L (12-78); ALBUMIN 3.4 G/DL (3.4-5.0); ALBUMIN/GLOBULIN RATIO 0.6 (1.1-1.5); ALKALINE PHOSPHATASE 100 IU/L (46-116); ANION GAP 7 (8-16); ASPARTATE AMINO TRANSFERASE 19 U/L (10-37); BILIRUBIN,TOTAL 0.2 MG/DL (0.1-1.0); BLOOD UREA NITROGEN 28 MG/DL (7-18); BUN/CREATININE RATIO 17.4 (5.4-32.0); CALCIUM 9.3 MG/DL (8.5-10.1); CHLORIDE 97 MMOL/L (99-107); CREATININE 1.61 MG/DL (0.60-1.10); GLUCOSE 211 MG/DL (70-104); MAGNESIUM 2.7 MG/DL (1.5-2.4); POTASSIUM 4.5 MMOL/L (3.5-5.1); SODIUM 132 MMOL/L (135-145); TOTAL CARBON DIOXIDE 27.9 MMOL/L (24-32); TOTAL PROTEIN 8.7 G/DL (6.4-8.2); eGFR 43 ML/MIN
[2022-01-28] MEDS ORDERED: acetaminophen 325mg tablet PO ONE (13:55)
[2022-01-28] MEDS ORDERED: DEXTROSE 15 GM of carb/4 tabs (each vial/BOTTLE has 4 tablets) PO PRN ×2 (17:25)
[2022-01-28] MEDS ORDERED: glucagon, human recombinant 1mg kit SUBCUT PRN (17:25)
[2022-01-28] MEDS ORDERED: HYDROcodone/acetaminophen 5mg/325mg tablet PO PRN (17:25)
[2022-01-28] MEDS ORDERED: morphine 2 MG/ML inj. syringe IV PRN (17:25)
[2022-01-28] MEDS ORDERED: acetaminophen 325mg tablet PO PRN (17:25)
[2022-01-28] MEDS ORDERED: MESSAGE TO PHARMACY PO ONE (17:25)
[2022-01-28] MEDS ORDERED: ondansetron/PF 4mg/2ml inj IV PRN (17:25)
[2022-01-28] MEDS ORDERED: dextrose 50%-water 50ml dispensing syringe IV PRN ×2 (17:25)
[2022-01-28] MEDS ORDERED: mag hydrox/Alum hydrox/simeth 30ml oral suspension PO PRN (17:25)
[2022-01-28] MEDS ORDERED: magnesium hydroxide 30ml (MOM) UD suspension PO PRN (17:25)
[2022-01-28 17:54] LABS: HEMOGLOBIN A1C 7.6 % (4.5-6.2)
[2022-01-28] MEDS: morphine 2 MG/ML inj. syringe IV PRN ×2 (17:54→22:00)
[2022-01-28] MEDS: docusate sod 100mg capsule PO SCH (20:00)
[2022-01-28] MEDS ORDERED: VALS40TA11 PO (20:08)
[2022-01-28] MEDS: insulin glargine (Lantus) pen - multi-dose SQ SCH ×2 (21:00→21:35)
[2022-01-29] MEDS: metroNIDAZOLE-Flagyl 500mg/NS 100 ML IV SCH ×3 (00:01→16:35)
[2022-01-29] MEDS: HYDROcodone/acetaminophen 10/325mg tab PO PRN ×2 (00:11→08:50)
--- NOTE | 2022-01-29 01:29 | NUR ---
pt placed onto a hospital bed
[2022-01-29 03:52] LABS: BASOPHILS # (AUTO) 0.1 X10'3 (0-0.2); BASOPHILS % (AUTO) 0.8 % (0-1); EOSINOPHILS # (AUTO) 0.1 X10'3 (0-0.9); HEMATOCRIT 32.9 % (42.0-52.0); HEMOGLOBIN 10.5 g/dl (14.0-17.9); LYMPHOCYTES # (AUTO) 2.1 X10'3 (1.1-4.8); LYMPHOCYTES % (AUTO) 14.7 % (21-51); MEAN CORPUSCULAR HEMOGLOBIN 28.6 PG (27.0-31.0); MEAN CORPUSCULAR VOLUME 89.6 FL (78-98); MONOCYTES # (AUTO) 1.6 X10'3 (0-0.9); MONOCYTES % (AUTO) 11.3 % (2-12); NEUTROPHILS # (AUTO) 10.5 X10'3 (1.8-7.7); NEUTROPHILS % (AUTO) 72.2 % (42-75); PLATELET COUNT 369 X10'3 (140-440); RED BLOOD COUNT 3.67 X10'6 (4.70-6.10); RED CELL DISTRIBUTION WIDTH 14.4 % (11.5-14.5); WHITE BLOOD COUNT 14.6 X10'3 (4.5-11.0)
[2022-01-29 04:03] LABS: ALBUMIN 2.6 G/DL (3.4-5.0); ANION GAP 10 (8-16); BLOOD UREA NITROGEN 27 MG/DL (7-18); BUN/CREATININE RATIO 17.9 (5.4-32.0); CALCIUM 8.9 MG/DL (8.5-10.1); CHLORIDE 100 MMOL/L (99-107); CREATININE 1.51 MG/DL (0.60-1.10); GLUCOSE 129 MG/DL (70-104); POTASSIUM 4.7 MMOL/L (3.5-5.1); SODIUM 136 MMOL/L (135-145); TOTAL CARBON DIOXIDE 26.4 MMOL/L (24-32); eGFR 47 ML/MIN
[2022-01-29] MEDS: CefTRIAXone/D5W-Rocephin 1gm 50 ML IV SCH (08:49)
[2022-01-29] MEDS: docusate sod 100mg capsule PO SCH ×2 (08:49→20:02)
[2022-01-29] MEDS ORDERED: vancomycin inj. 750 MG in normal saline 250ml IV soln 250 ML IV SCH (10:00)
[2022-01-29] MEDS: amLODIPine 5mg tablet PO SCH (12:36)
[2022-01-29] MEDS: aspirin 81mg, enteric-coated 1 TAB TABLET.DR PO SCH (12:36)
[2022-01-29] MEDS: gabapentin 300mg capsule PO SCH ×2 (12:36→20:02)
[2022-01-29] MEDS: atorvastatin 20mg tablet PO SCH (12:36)
[2022-01-29] MEDS: tamsulosin 0.4mg capsule PO SCH (12:36)
[2022-01-29] MEDS: isosorbide mononitrate 30mg tab.SR.24H PO SCH (12:37)
--- NOTE | 2022-01-29 14:00 | NUR ---
paged hospitalist to request if pt could have glucerna per pt request and due to lack of apetite, pedning call back
--- NOTE | 2022-01-29 15:15 | NUR ---
Patient in room ED 10. I have received report from Annamarie in the ED and had the opportunity to ask questions and assume patient care.
[2022-01-29 15:35] VITALS: BP 131/75
[2022-01-29] MEDS ORDERED: vancomycin/NS 1 GM ADD-VANTAGE 250 ML IV SCH (17:00)
[2022-01-29 18:00] VITALS: BP 141/75
--- NOTE | 2022-01-29 18:37 | NUR ---
Problems reprioritized. Patient report given, questions answered & plan of care reviewed with Neo.
[2022-01-29] MEDS: losartan 25mg tablet PO SCH (20:07)
[2022-01-29 22:00] VITALS: BP 135/83
[2022-01-29] MEDS: insulin glargine (Lantus) pen - multi-dose SQ SCH (22:26)
[2022-01-30] MEDS: metroNIDAZOLE-Flagyl 500mg/NS 100 ML IV SCH ×3 (00:15→17:28)
[2022-01-30 05:56] LABS: BASOPHILS # (AUTO) 0.1 X10'3 (0-0.2); BASOPHILS % (AUTO) 0.4 % (0-1); EOSINOPHILS # (AUTO) 0.1 X10'3 (0-0.9); EOSINOPHILS % (AUTO) 0.6 % (0-6); HEMATOCRIT 30.5 % (42.0-52.0); HEMOGLOBIN 9.9 g/dl (14.0-17.9); LYMPHOCYTES # (AUTO) 2.3 X10'3 (1.1-4.8); LYMPHOCYTES % (AUTO) 14.2 % (21-51); MEAN CORPUSCULAR HEMOGLOBIN 29.3 PG (27.0-31.0); MEAN CORPUSCULAR HGB CONC 32.4 g/dL (33.0-36.5); MEAN CORPUSCULAR VOLUME 90.5 FL (78-98); MEAN PLATELET VOLUME 7.9 FL (7.4-10.4); MONOCYTES # (AUTO) 1.5 X10'3 (0-0.9); MONOCYTES % (AUTO) 9.6 % (2-12); NEUTROPHILS # (AUTO) 11.9 X10'3 (1.8-7.7); NEUTROPHILS % (AUTO) 75.2 % (42-75); PLATELET COUNT 371 X10'3 (140-440); RED BLOOD COUNT 3.37 X10'6 (4.70-6.10); RED CELL DISTRIBUTION WIDTH 14.9 % (11.5-14.5); WHITE BLOOD COUNT 15.9 X10'3 (4.5-11.0)
[2022-01-30 06:03] LABS: ALBUMIN 2.4 G/DL (3.4-5.0); ANION GAP 8 (8-16); BLOOD UREA NITROGEN 36 MG/DL (7-18); BUN/CREATININE RATIO 21.4 (5.4-32.0); CALCIUM 8.8 MG/DL (8.5-10.1); CHLORIDE 102 MMOL/L (99-107); CREATININE 1.68 MG/DL (0.60-1.10); GLUCOSE 243 MG/DL (70-104); POTASSIUM 4.8 MMOL/L (3.5-5.1); SODIUM 135 MMOL/L (135-145); TOTAL CARBON DIOXIDE 25.3 MMOL/L (24-32); eGFR 41 ML/MIN
--- NOTE | 2022-01-30 06:30 | NUR ---
Patient in room STEW 340. I have received report from LEIGH BEASLEY and had the opportunity to ask questions and assume patient care.
[2022-01-30 07:10] VITALS: BP 143/61
[2022-01-30] MEDS: tamsulosin 0.4mg capsule PO SCH (07:38)
[2022-01-30] MEDS: amLODIPine 5mg tablet PO SCH (07:38)
[2022-01-30] MEDS: aspirin 81mg, enteric-coated 1 TAB TABLET.DR PO SCH (07:38)
[2022-01-30] MEDS: isosorbide mononitrate 30mg tab.SR.24H PO SCH (07:38)
[2022-01-30] MEDS: docusate sod 100mg capsule PO SCH ×2 (07:38→20:48)
[2022-01-30] MEDS: atorvastatin 20mg tablet PO SCH (07:38)
[2022-01-30] MEDS: gabapentin 300mg capsule PO SCH ×2 (07:38→20:48)
[2022-01-30] MEDS: enoxaparin 40mg/0.4ml syringe SUBCUT SCH (07:39)
--- NOTE | 2022-01-30 09:32 | NUR ---
DM Consult: Pt hx DM A1C 7.6% down from prior 8.9% 11/09 admit and seen by RIDDHI for DM diet ed on that admit as well per EMR. Will remain available if pt nutrition questions/concerns. Noted pt chronic R foot wound w/ wound to L small toe as well pending WOC assessment this admit; will monitor for WOC assessment and further nutrition intervention needs. Addendum: 01/30/22 at [address] Amended: Links added.
[2022-01-30] MEDS: CefTRIAXone/D5W-Rocephin 1gm 50 ML IV SCH (09:38)
[2022-01-30] MEDS: insulin Lispro (HumaLOG) vial - multi-dose SQ SCH ×2 (09:45→19:35)
--- NOTE | 2022-01-30 12:30 | NUR ---
PRESSURE ULCER EDUCATION: DEFINITION: A pressure ulcer is an area of skin that breaks down when you stay in one position too long. The constant pressure against the skin reduces the blood flow to that area and the affected tissue dies. CAUSES: "Being bedridden or in a wheelchair "Fragile skin "Having a chronic condition, such as diabetes or vascular disease "Inability to move certain parts of your body without assistance "Older age "Incontinence of urine or stool SYMPTOMS: "A reddened area that DOES NOT turn white when pressed on - this can be the beginning of a pressure ulcer "A blister, deep sore or a crater - these can be advanced pressure ulcers FIRST AID: "Relieve the pressure on this area "Keep the area clean and dry "Call your primary doctor if you see any of the above symptoms "DO NOT massage the area "DO NOT use a donut shaped or ring shaped pillow- these actually interfere with the blood flow and cause complications PREVENTION: "Check for pressure ulcers everyday "Change position at least every two hours to relieve pressure "Use items that help relieve pressure- pillows, sheepskin, foam padding, and powders. "Keep skin clean and dry "Eat healthy well balanced meals "Exercise daily IF YOU SEE ANY OF THESE SYMPTOMS WHILE IN THE HOSPITAL - TELL YOUR NURSE IMMEDIATELY. IF YOU SEE ANY OF THESE SYMPTOMS WHILE AT HOME OR HAVE ANY QUESTIONS OR CONCERNS ABOUT PRESSURE ULCERS - CALL YOUR PRIMARY DOCTOR IMMEDIATELY. Addendum: 01/30/22 at 1232 by Anna Benedict LVN Amended: Links added.
[2022-01-30] MEDS: acetaminophen 325mg tablet PO PRN ×2 (14:23→20:48)
[2022-01-30] MEDS ORDERED: VANCOMYCIN 750MG IV in NS 250 ML IV SCH (17:00)
[2022-01-30 18:00] VITALS: BP 143/69
--- NOTE | 2022-01-30 18:54 | NUR ---
Problems reprioritized. Patient report given, questions answered & plan of care reviewed with RUPINDER BUCIO RN.
--- NOTE | 2022-01-30 18:55 | NUR ---
Patient in room STEW 340. I have received report from DARRELL BEASLEY and had the opportunity to ask questions and assume patient care.
[2022-01-30] MEDS: losartan 25mg tablet PO SCH (20:49)
[2022-01-30 22:00] VITALS: BP 130/60
[2022-01-30] MEDS: insulin glargine (Lantus) pen - multi-dose SQ SCH (22:29)
[2022-01-31] MEDS: metroNIDAZOLE-Flagyl 500mg/NS 100 ML IV SCH ×2 (00:42→09:08)
[2022-01-31 06:00] VITALS: BP 165/69
[2022-01-31] MEDS: acetaminophen 325mg tablet PO PRN (06:10)
[2022-01-31 06:35] LABS: BASOPHILS # (AUTO) 0.1 X10'3 (0-0.2); BASOPHILS % (AUTO) 0.9 % (0-1); EOSINOPHILS # (AUTO) 0.2 X10'3 (0-0.9); EOSINOPHILS % (AUTO) 1.3 % (0-6); HEMATOCRIT 33.2 % (42.0-52.0); HEMOGLOBIN 10.7 g/dl (14.0-17.9); LYMPHOCYTES # (AUTO) 2.2 X10'3 (1.1-4.8); LYMPHOCYTES % (AUTO) 14.1 % (21-51); MEAN CORPUSCULAR HEMOGLOBIN 28.7 PG (27.0-31.0); MEAN CORPUSCULAR HGB CONC 32.4 g/dL (33.0-36.5); MEAN CORPUSCULAR VOLUME 88.5 FL (78-98); MEAN PLATELET VOLUME 8.1 FL (7.4-10.4); MONOCYTES # (AUTO) 1.2 X10'3 (0-0.9); MONOCYTES % (AUTO) 7.9 % (2-12); NEUTROPHILS # (AUTO) 11.8 X10'3 (1.8-7.7); NEUTROPHILS % (AUTO) 75.8 % (42-75); PLATELET COUNT 363 X10'3 (140-440); RED BLOOD COUNT 3.75 X10'6 (4.70-6.10); RED CELL DISTRIBUTION WIDTH 14.2 % (11.5-14.5); WHITE BLOOD COUNT 15.6 X10'3 (4.5-11.0)
--- NOTE | 2022-01-31 06:35 | NUR ---
Problems reprioritized. Patient report given, questions answered & plan of care reviewed with JOSEMANUEL BEASLEY.
[2022-01-31 07:04] LABS: ALBUMIN 2.5 G/DL (3.4-5.0); ANION GAP 13 (8-16); BLOOD UREA NITROGEN 24 MG/DL (7-18); BUN/CREATININE RATIO 18.3 (5.4-32.0); CALCIUM 8.5 MG/DL (8.5-10.1); CHLORIDE 102 MMOL/L (99-107); CREATININE 1.31 MG/DL (0.60-1.10); GLUCOSE 136 MG/DL (70-104); POTASSIUM 4.5 MMOL/L (3.5-5.1); SODIUM 140 MMOL/L (135-145); TOTAL CARBON DIOXIDE 24.9 MMOL/L (24-32); eGFR 55 ML/MIN
[2022-01-31] MEDS: aspirin 81mg, enteric-coated 1 TAB TABLET.DR PO SCH (09:09)
[2022-01-31] MEDS: atorvastatin 20mg tablet PO SCH (09:10)
[2022-01-31] MEDS: enoxaparin 40mg/0.4ml syringe SUBCUT SCH (09:10)
[2022-01-31] MEDS: amLODIPine 5mg tablet PO SCH (09:10)
[2022-01-31] MEDS: docusate sod 100mg capsule PO SCH (09:10)
[2022-01-31] MEDS: gabapentin 300mg capsule PO SCH (09:10)
[2022-01-31] MEDS: isosorbide mononitrate 30mg tab.SR.24H PO SCH (09:10)
[2022-01-31] MEDS: tamsulosin 0.4mg capsule PO SCH (09:10)
[2022-01-31] MEDS: insulin Lispro (HumaLOG) vial - multi-dose SQ SCH (09:20)
--- NOTE | 2022-01-31 09:32 | NUR ---
page sent to .... 193V Christofer Sommer: patient will need FWW on discharge. thanks!
[2022-01-31] MEDS: CefTRIAXone/D5W-Rocephin 1gm 50 ML IV SCH (10:54)
[2022-01-31 11:00] VITALS: BP 147/59
[2022-01-31] MEDS ORDERED: LEVO750T68 PO ×2 (11:39)
--- NOTE | 2022-01-31 13:07 | NUR ---
F/u: Pt w/ full thickness eschar to two sites L 5th metatarsal per WO note. Pt would benefit from Oswaldo however discharging today per RN via TC. Pt PO 75-100% initial carb controlled meals meeting healing needs. Will monitor for further nutrition intervention needs if continued admit. Addendum: 01/31/22 at [address] Amended: Links added.
--- NOTE | 2022-01-31 13:45 | NUR ---
Patient stable and appropriate for discharge home with . IV removed, all belongings taken from room. New RX e-scripted to preferred pharmacy. Family at bedside confirmed wound care appointment that has already been made for Monday 02/05. All discharge instructions and education given and reviewed with patient, all questions answered.
[2022-01-31] MEDS ORDERED: vancomycin/NS 1 GM ADD-VANTAGE 250 ML IV SCH (21:00)
[2022-02-03] MEDS ORDERED: VANCOMYCIN LEVEL IV ONE (20:30)
== END 2022-01-31 13:45 | disposition home health service (06) | DRG 344 ==
LOC: ER 06:44 → ED HOLD 17:28 → SUR 3N 01-29 15:29
PROVIDERS: ADMIT Internal Medicine; ATTEND Internal Medicine
DX: E11.621 Type 2 diabetes mellitus with foot ulcer (principal); M86.671 Other chronic osteomyelitis, right ankle and foot; N17.9 Acute kidney failure, unspecified; E11.22 Type 2 diabetes mellitus with diabetic chronic kidney disease; L97.419 Non-pressure chronic ulcer of right heel and midfoot with unspecified severity; E11.40 Type 2 diabetes mellitus with diabetic neuropathy, unspecified; E11.69 Type 2 diabetes mellitus with other specified complication; E11.51 Type 2 diabetes mellitus with diabetic peripheral angiopathy without gangrene; E78.00 Pure hypercholesterolemia, unspecified; N40.0 Benign prostatic hyperplasia without lower urinary tract symptoms; N18.30 Chronic kidney disease, stage 3 unspecified; I12.9 Hypertensive chronic kidney disease with stage 1 through stage 4 chronic kidney disease, or unspecified chronic kidney disease; I25.10 Atherosclerotic heart disease of native coronary artery without angina pectoris; E78.5 Hyperlipidemia, unspecified; Z95.5 Presence of coronary angioplasty implant and graft; Z86.73 Personal history of transient ischemic attack (TIA), and cerebral infarction without residual deficits; Z83.3 Family history of diabetes mellitus; Z79.899 Other long term (current) drug therapy; Z79.82 Long term (current) use of aspirin; Z79.4 Long term (current) use of insulin
CPT/HCPCS: 36415; 73630; 73718; 80048; 80053; 82948; 83036; 83605; 83735; 83880; 84145; 85025; 85651; 87040; 87081; 93922; 93925; 96365; 99285; A6258; A6449; G0378; J0696; J1650; J1815; J2270; J2405; J2543; J3370; J3490; J7030; J7050

== ENCOUNTER 2022-02-05 14:56 | Inpatient (IN) | payer MEDICAID ==
[~2022-02-05] VITALS: Ht 160 cm; Wt 72.4 kg
[~2022-02-05 14:56] MED LIST changes: -CLOP75TA33 PO; -FURO40TA4 PO; -HYDR-4069 PO; +LEVO750T68 PO; -PANT-47 PO; +VALS40TA11 PO
[2022-02-05] MEDS ORDERED: mag hydrox/Alum hydrox/simeth 30ml oral suspension PO PRN (16:20)
[2022-02-05] MEDS ORDERED: magnesium hydroxide 30ml (MOM) UD suspension PO PRN (16:20)
[2022-02-05] MEDS ORDERED: HYDROmorphone inj. 0.5 MG/0.5 ML DISP.SYRIN IV PRN (16:20)
[2022-02-05] MEDS: normal saline 1000ml 1,000 ML IV SCH (16:20)
[2022-02-05] MEDS ORDERED: HYDROcodone/acetaminophen 5mg/325mg tablet PO PRN (16:20)
[2022-02-05] MEDS: cefepime 1GM/NS ADD-VANTAGE 100 ML IV SCH ×2 (16:33→23:37)
[2022-02-05] MEDS ORDERED: LEVO750T68 PO (16:52)
[2022-02-05] MEDS ORDERED: VALS80TA32 PO (16:54)
[2022-02-05] MEDS ORDERED: AMLO5TAB16 PO (16:55)
[2022-02-05 17:17] LABS: BASOPHILS # (AUTO) 0.1 X10'3 (0-0.2); BASOPHILS % (AUTO) 0.8 % (0-1); EOSINOPHILS # (AUTO) 0.2 X10'3 (0-0.9); EOSINOPHILS % (AUTO) 1.4 % (0-6); HEMATOCRIT 32.7 % (42.0-52.0); HEMOGLOBIN 10.5 g/dl (14.0-17.9); LYMPHOCYTES # (AUTO) 2.1 X10'3 (1.1-4.8); LYMPHOCYTES % (AUTO) 14.2 % (21-51); MEAN CORPUSCULAR HEMOGLOBIN 28.2 PG (27.0-31.0); MEAN CORPUSCULAR HGB CONC 32.1 g/dL (33.0-36.5); MEAN CORPUSCULAR VOLUME 87.9 FL (78-98); MEAN PLATELET VOLUME 7.8 FL (7.4-10.4); MONOCYTES % (AUTO) 13.5 % (2-12); NEUTROPHILS # (AUTO) 10.2 X10'3 (1.8-7.7); NEUTROPHILS % (AUTO) 70.1 % (42-75); PLATELET COUNT 427 X10'3 (140-440); RED BLOOD COUNT 3.72 X10'6 (4.70-6.10); RED CELL DISTRIBUTION WIDTH 14.7 % (11.5-14.5); WHITE BLOOD COUNT 14.6 X10'3 (4.5-11.0)
[2022-02-05 17:23] LABS: ALBUMIN 2.5 G/DL (3.4-5.0); ANION GAP 10 (8-16); BLOOD UREA NITROGEN 25 MG/DL (7-18); BUN/CREATININE RATIO 10.5 (5.4-32.0); CALCIUM 8.3 MG/DL (8.5-10.1); CHLORIDE 99 MMOL/L (99-107); CREATININE 2.39 MG/DL (0.60-1.10); GLUCOSE 278 MG/DL (70-104); POTASSIUM 4.6 MMOL/L (3.5-5.1); SODIUM 134 MMOL/L (135-145); TOTAL CARBON DIOXIDE 25.5 MMOL/L (24-32); eGFR 28 ML/MIN
--- NOTE | 2022-02-05 18:30 | NUR ---
Patient in room PCU 3014. I have received report from primitivo and had the opportunity to ask questions and assume patient care.
[2022-02-05] MEDS: docusate sod 100mg capsule PO SCH (20:41)
[2022-02-05] MEDS: gabapentin 300mg capsule PO SCH (20:41)
[2022-02-05] MEDS: insulin glargine (Lantus) pen - multi-dose SQ SCH (20:41)
[2022-02-05] MEDS: enoxaparin 30mg/0.3ml syringe SQ SCH (20:41)
[2022-02-06 02:00] VITALS: BP 189/53
[2022-02-06] MEDS: normal saline 1000ml 1,000 ML IV SCH ×2 (04:25→15:48)
--- NOTE | 2022-02-06 06:18 | NUR ---
Problems reprioritized. Patient report given, questions answered & plan of care reviewed with primitivo.
[2022-02-06 06:44] LABS: BASOPHILS # (AUTO) 0.1 X10'3 (0-0.2); BASOPHILS % (AUTO) 0.4 % (0-1); EOSINOPHILS # (AUTO) 0.3 X10'3 (0-0.9); EOSINOPHILS % (AUTO) 2.2 % (0-6); HEMATOCRIT 32.7 % (42.0-52.0); HEMOGLOBIN 10.5 g/dl (14.0-17.9); LYMPHOCYTES # (AUTO) 1.6 X10'3 (1.1-4.8); LYMPHOCYTES % (AUTO) 12.6 % (21-51); MEAN CORPUSCULAR HEMOGLOBIN 28.2 PG (27.0-31.0); MEAN PLATELET VOLUME 8.2 FL (7.4-10.4); MONOCYTES # (AUTO) 1.4 X10'3 (0-0.9); MONOCYTES % (AUTO) 10.6 % (2-12); NEUTROPHILS # (AUTO) 9.6 X10'3 (1.8-7.7); NEUTROPHILS % (AUTO) 74.2 % (42-75); PLATELET COUNT 437 X10'3 (140-440); RED BLOOD COUNT 3.71 X10'6 (4.70-6.10)
--- NOTE | 2022-02-06 06:51 | NUR ---
Patient in room PCU 3014. I have received report from Monty BEASLEY and had the opportunity to ask questions and assume patient care.
[2022-02-06 06:54] LABS: ALBUMIN 2.3 G/DL (3.4-5.0); ANION GAP 7 (8-16); BLOOD UREA NITROGEN 20 MG/DL (7-18); CALCIUM 8.5 MG/DL (8.5-10.1); CHLORIDE 105 MMOL/L (99-107); CREATININE 1.54 MG/DL (0.60-1.10); GLUCOSE 179 MG/DL (70-104); POTASSIUM 4.6 MMOL/L (3.5-5.1); SODIUM 136 MMOL/L (135-145); TOTAL CARBON DIOXIDE 24.1 MMOL/L (24-32); eGFR 46 ML/MIN
[2022-02-06 07:00] VITALS: BP 138/66
[2022-02-06] MEDS ORDERED: midazolam 1 mg/ML 2ml injection ONE (07:31)
[2022-02-06] MEDS ORDERED: heparin 1,000 UNITS/NS 500ml 500 ML ONE (07:32)
[2022-02-06] MEDS ORDERED: LIDOcaine 1% 30ml preserv. free vial ONE (07:32)
[2022-02-06] MEDS ORDERED: fentaNYL/PF 50MCG/1 ML 2ML syringe ONE (07:32)
[2022-02-06] MEDS ORDERED: iohexol 300mg/ml 100ml inj. ONE (07:32)
--- NOTE | 2022-02-06 07:37 | NUR ---
Angio called and will be picking up patient for Angio gram.
[2022-02-06] MEDS ORDERED: hydrALAZINE 20mg/ml inj. IV ONE (08:52)
--- NOTE | 2022-02-06 09:28 | NUR ---
Per EMR pt with T2DM, most recent A1c 7.6% 01/28 is down from 8.9% 11/09. Pt seen by RD at previous visit for written and verbal DM education. RD contact information provided at that time. Will continue to follow and remain available for f/u DM education PRN. Addendum: 02/06/22 at [address] Amended: Links added.
[2022-02-06] MEDS: cefepime 1GM/NS ADD-VANTAGE 100 ML IV SCH ×2 (10:48→15:48)
[2022-02-06] MEDS: acetaminophen 325mg tablet PO PRN (10:49)
[2022-02-06] MEDS: enoxaparin 30mg/0.3ml syringe SQ SCH ×2 (10:49→20:13)
[2022-02-06] MEDS: atorvastatin 20mg tablet PO SCH (13:34)
[2022-02-06] MEDS: aspirin 81mg, enteric-coated 1 TAB TABLET.DR PO SCH (13:34)
[2022-02-06] MEDS: tamsulosin 0.4mg capsule PO SCH (13:34)
[2022-02-06] MEDS: gabapentin 300mg capsule PO SCH ×2 (13:34→20:14)
[2022-02-06] MEDS: docusate sod 100mg capsule PO SCH ×2 (13:34→20:14)
[2022-02-06] MEDS: amLODIPine 5mg tablet PO SCH (13:36)
[2022-02-06] MEDS: isosorbide mononitrate 30mg tab.SR.24H PO SCH (13:37)
[2022-02-06] MEDS: insulin regular, human U-100 3ml vial - multi-dose SQ SCH (15:50)
--- NOTE | 2022-02-06 17:46 | NUR ---
Message: [id number] DEVI CATHERINE PATIENT IS STILL HAVING CHEST PAIN, WITH EMESIS THAT LOOKS LIKE IT MAY HAVE DRIED BLOOD IN IT. HEPARIN HAS NOT BEEN STARTED DUE TO WAITING ON A PTT. KAJAL [id number] Addendum: 02/06/22 at 1746 by Lacy Reed RN WRONG PATIENT
[2022-02-06 18:00] VITALS: BP 139/64
--- NOTE | 2022-02-06 18:30 | NUR ---
Patient in room PCU 3014. I have received report from primitivo and had the opportunity to ask questions and assume patient care.
--- NOTE | 2022-02-06 18:38 | NUR ---
Problems reprioritized. Patient report given, questions answered & plan of care reviewed with TONI BEASLEY.
[2022-02-06] MEDS: insulin glargine (Lantus) pen - multi-dose SQ SCH (20:12)
[2022-02-07] MEDS: cefepime 1GM/NS ADD-VANTAGE 100 ML IV SCH ×4 (00:48→23:47)
[2022-02-07 02:00] VITALS: BP 159/68
[2022-02-07] MEDS: normal saline 1000ml 1,000 ML IV SCH ×2 (02:39→08:11)
[2022-02-07 06:00] VITALS: BP 161/70
--- NOTE | 2022-02-07 06:17 | NUR ---
Problems reprioritized. Patient report given, questions answered & plan of care reviewed with steh.
--- NOTE | 2022-02-07 06:31 | NUR ---
Patient in room PCU 3014. I have received report from TONI BEASLEY and had the opportunity to ask questions and assume patient care.
[2022-02-07 06:41] LABS: BASOPHILS # (AUTO) 0.1 X10'3 (0-0.2); BASOPHILS % (AUTO) 0.6 % (0-1); EOSINOPHILS # (AUTO) 0.5 X10'3 (0-0.9); EOSINOPHILS % (AUTO) 3.7 % (0-6); HEMATOCRIT 29.7 % (42.0-52.0); HEMOGLOBIN 9.6 g/dl (14.0-17.9); LYMPHOCYTES # (AUTO) 1.9 X10'3 (1.1-4.8); LYMPHOCYTES % (AUTO) 14.3 % (21-51); MEAN CORPUSCULAR HEMOGLOBIN 28.4 PG (27.0-31.0); MEAN CORPUSCULAR HGB CONC 32.2 g/dL (33.0-36.5); MEAN PLATELET VOLUME 7.8 FL (7.4-10.4); MONOCYTES # (AUTO) 1.4 X10'3 (0-0.9); MONOCYTES % (AUTO) 10.4 % (2-12); NEUTROPHILS # (AUTO) 9.4 X10'3 (1.8-7.7); PLATELET COUNT 405 X10'3 (140-440); RED BLOOD COUNT 3.38 X10'6 (4.70-6.10); RED CELL DISTRIBUTION WIDTH 14.7 % (11.5-14.5); WHITE BLOOD COUNT 13.2 X10'3 (4.5-11.0)
[2022-02-07 07:00] LABS: ALBUMIN 2.2 G/DL (3.4-5.0); ANION GAP 9 (8-16); BLOOD UREA NITROGEN 16 MG/DL (7-18); BUN/CREATININE RATIO 11.8 (5.4-32.0); CALCIUM 8.3 MG/DL (8.5-10.1); CHLORIDE 106 MMOL/L (99-107); CREATININE 1.36 MG/DL (0.60-1.10); GLUCOSE 166 MG/DL (70-104); POTASSIUM 4.4 MMOL/L (3.5-5.1); SODIUM 138 MMOL/L (135-145); TOTAL CARBON DIOXIDE 22.6 MMOL/L (24-32); eGFR 53 ML/MIN
[2022-02-07] MEDS: amLODIPine 5mg tablet PO SCH (08:10)
[2022-02-07] MEDS: tamsulosin 0.4mg capsule PO SCH (08:11)
[2022-02-07] MEDS: gabapentin 300mg capsule PO SCH ×2 (08:11→20:31)
[2022-02-07] MEDS: aspirin 81mg, enteric-coated 1 TAB TABLET.DR PO SCH (08:11)
[2022-02-07] MEDS: insulin regular, human U-100 3ml vial - multi-dose SQ SCH (08:11)
[2022-02-07] MEDS: atorvastatin 20mg tablet PO SCH (08:11)
[2022-02-07] MEDS: enoxaparin 30mg/0.3ml syringe SQ SCH ×2 (08:11→20:00)
[2022-02-07] MEDS: docusate sod 100mg capsule PO SCH ×2 (08:11→20:31)
[2022-02-07] MEDS: isosorbide mononitrate 30mg tab.SR.24H PO SCH (08:11)
[2022-02-07 10:00] VITALS: BP 114/56
[2022-02-07] MEDS: acetaminophen 325mg tablet PO PRN ×2 (10:36→17:47)
--- NOTE | 2022-02-07 12:17 | NUR ---
Spoke with Dr Carrasquillo, was instructed to make pt NPO at midnight to prepare to be taken to surgery tomorrow by him. Will inform next nurse.
[2022-02-07 14:00] VITALS: BP 118/60
[2022-02-07 18:00] VITALS: BP 165/72
--- NOTE | 2022-02-07 18:06 | NUR ---
Problems reprioritized. Patient report given, questions answered & plan of care reviewed with Monty BEASLEY.
[2022-02-07] MEDS: insulin glargine (Lantus) pen - multi-dose SQ SCH (20:29)
[2022-02-08] VITALS (12 sets, daily range): BP systolic 119–185; BP diastolic 60–84
[2022-02-08] MEDS: normal saline 1000ml 1,000 ML IV SCH ×4 (01:30→23:52)
[2022-02-08] MEDS: hydrALAZINE 20mg/ml inj. IV PRN (02:01)
--- NOTE | 2022-02-08 06:12 | NUR ---
Problems reprioritized. Patient report given, questions answered & plan of care reviewed with
--- NOTE | 2022-02-08 06:12 | NUR ---
Patient in room PCU 3014. I have received report from Monty BEASLEY and had the opportunity to ask questions and assume patient care.
[2022-02-08 06:48] LABS: BASOPHILS # (AUTO) 0.1 X10'3 (0-0.2); BASOPHILS % (AUTO) 0.9 % (0-1); EOSINOPHILS # (AUTO) 0.5 X10'3 (0-0.9); EOSINOPHILS % (AUTO) 4.1 % (0-6); HEMATOCRIT 29.9 % (42.0-52.0); HEMOGLOBIN 9.7 g/dl (14.0-17.9); LYMPHOCYTES # (AUTO) 1.7 X10'3 (1.1-4.8); LYMPHOCYTES % (AUTO) 14.5 % (21-51); MEAN CORPUSCULAR HEMOGLOBIN 28.4 PG (27.0-31.0); MEAN CORPUSCULAR HGB CONC 32.4 g/dL (33.0-36.5); MEAN CORPUSCULAR VOLUME 87.7 FL (78-98); MEAN PLATELET VOLUME 8.3 FL (7.4-10.4); MONOCYTES # (AUTO) 1.3 X10'3 (0-0.9); MONOCYTES % (AUTO) 10.9 % (2-12); NEUTROPHILS # (AUTO) 8.3 X10'3 (1.8-7.7); NEUTROPHILS % (AUTO) 69.6 % (42-75); PLATELET COUNT 403 X10'3 (140-440); RED BLOOD COUNT 3.41 X10'6 (4.70-6.10); RED CELL DISTRIBUTION WIDTH 14.7 % (11.5-14.5); WHITE BLOOD COUNT 11.9 X10'3 (4.5-11.0)
[2022-02-08] MEDS: cefepime 1GM/NS ADD-VANTAGE 100 ML IV SCH ×2 (07:24→15:20)
[2022-02-08] MEDS: aspirin 81mg, enteric-coated 1 TAB TABLET.DR PO SCH (07:28)
[2022-02-08] MEDS: enoxaparin 30mg/0.3ml syringe SQ SCH ×2 (07:28→19:42)
[2022-02-08 07:35] LABS: ALBUMIN 2.2 G/DL (3.4-5.0); ANION GAP 12 (8-16); BLOOD UREA NITROGEN 15 MG/DL (7-18); BUN/CREATININE RATIO 13.2 (5.4-32.0); CALCIUM 8.4 MG/DL (8.5-10.1); CHLORIDE 108 MMOL/L (99-107); CREATININE 1.14 MG/DL (0.60-1.10); GLUCOSE 146 MG/DL (70-104); POTASSIUM 4.3 MMOL/L (3.5-5.1); SODIUM 142 MMOL/L (135-145); eGFR 65 ML/MIN
[2022-02-08] MEDS: insulin regular, human U-100 3ml vial - multi-dose SQ SCH (07:36)
[2022-02-08] MEDS: docusate sod 100mg capsule PO SCH ×2 (07:37→19:42)
[2022-02-08] MEDS: isosorbide mononitrate 30mg tab.SR.24H PO SCH (07:37)
[2022-02-08] MEDS: gabapentin 300mg capsule PO SCH ×2 (07:39→19:42)
[2022-02-08] MEDS: amLODIPine 5mg tablet PO SCH (07:39)
[2022-02-08] MEDS: tamsulosin 0.4mg capsule PO SCH (07:39)
[2022-02-08] MEDS: atorvastatin 20mg tablet PO SCH (07:39)
[2022-02-08] MEDS: acetaminophen 325mg tablet PO PRN ×2 (07:43→19:45)
[2022-02-08] MEDS ORDERED: dextrose 50%-water 50ml dispensing syringe IV ONE (10:05)
[2022-02-08] MEDS ORDERED: dextrose 5%-normal saline 1,000 ML IV SCH (10:35)
--- NOTE | 2022-02-08 10:44 | NUR ---
Pt expressed concerns of low blood sugar to this nurse BS was 44 charge nurse administer d5 ampule follow up BS 147. Dr Singh notified and new order initiated of D5NS @ 100ml/hr until postop and pt no longer NPO.
[2022-02-08] MEDS ORDERED: sevoflurane 250ml liquid IH ONE (11:37)
[2022-02-08] MEDS ORDERED: LIDOcaine 1% (10mg/ml)w/preservative inj. 20ml MDV ONE (11:37)
[2022-02-08] MEDS ORDERED: fentaNYL/PF 50MCG/1 ML 2ML syringe ONE (11:45)
[2022-02-08] MEDS ORDERED: midazolam 1 mg/ML 2ml injection ONE (11:45)
--- NOTE | 2022-02-08 12:00 | NUR ---
Pt unavailbe for 1200 BS assessment due to being in surgery. Addendum: 02/08/22 at 1242 by Brittni Collins LVN, LVN Amended: Links added.
[2022-02-08] MEDS ORDERED: BUPIVAcaine 0.5% inj/PF 30 ML ONE (12:23)
[2022-02-08] MEDS ORDERED: BUPIVAcaine 0.5% W/EPI /PF 30ml vial IJ ONE (12:25)
[2022-02-08] MEDS ORDERED: propofol inj 20 ML IV ONE (12:29)
--- NOTE | 2022-02-08 12:39 | NUR ---
Received from OR via HOSPITAL BED, accompanied by Anesthesiologist DR. MINOR and report given by Anesthesiolgist. PT. PRESENTS WITH 20G IV IN RIGHT UPPER ARM, DRESSING ON RIGHT FOOT, CDI. VSS. Addendum: 02/08/22 at 1311 by Cornelia Collins RN RN Amended: Links added.
--- NOTE | 2022-02-08 13:31 | NUR ---
recieved report from recovery student nurse, awaiting pt arrival back to unit
--- NOTE | 2022-02-08 13:39 | NUR ---
Report called to receiving nurse DEEJAY BEASLEY. Transferred via HOSPITAL BED TO ROOM 3014B, PT TO ROOM 3014B WIHT PT. PT Belongings WERE LEFT IN ROOM. DEEJAY BEASLEY NOTIFIED PT IN ROOM, CHART TO NURSES STATION. Special Issues communicated to receiving nurse. Addendum: 02/08/22 at 1348 by Cornelia Collins RN, RN Amended: Links added.
--- NOTE | 2022-02-08 13:49 | NUR ---
Pt located back in room 3014B. VSS stable pt denies pain, at beside.
--- NOTE | 2022-02-08 18:22 | NUR ---
Problems reprioritized. Patient report given, questions answered & plan of care reviewed with Montserrat HOWARD.
[2022-02-08] MEDS: insulin glargine (Lantus) pen - multi-dose SQ SCH (21:10)
[2022-02-09] MEDS: cefepime 1GM/NS ADD-VANTAGE 100 ML IV SCH ×3 (00:16→16:00)
--- NOTE | 2022-02-09 02:16 | NUR ---
Agree with Montserrat HOWARD except where I documented my findings.
--- NOTE | 2022-02-09 04:23 | NUR ---
Patient in room PCU 3014. I have received report from Brittni HOWARD and had the opportunity to ask questions and assume patient care.
[2022-02-09 06:00] VITALS: BP 158/76
--- NOTE | 2022-02-09 06:19 | NUR ---
Patient in room PCU 3014. I have received report from Montserrat HOWARD and had the opportunity to ask questions and assume patient care.
[2022-02-09] MEDS: docusate sod 100mg capsule PO SCH ×2 (07:30→20:28)
[2022-02-09] MEDS: acetaminophen 325mg tablet PO PRN (07:30)
[2022-02-09] MEDS: aspirin 81mg, enteric-coated 1 TAB TABLET.DR PO SCH (07:30)
[2022-02-09] MEDS: gabapentin 300mg capsule PO SCH ×2 (07:30→20:28)
[2022-02-09] MEDS: tamsulosin 0.4mg capsule PO SCH (07:30)
[2022-02-09] MEDS: enoxaparin 30mg/0.3ml syringe SQ SCH ×2 (07:30→20:28)
[2022-02-09] MEDS: isosorbide mononitrate 30mg tab.SR.24H PO SCH (07:30)
[2022-02-09] MEDS: atorvastatin 20mg tablet PO SCH (07:30)
[2022-02-09] MEDS: amLODIPine 5mg tablet PO SCH (07:31)
[2022-02-09 07:33] LABS: ALBUMIN 2.1 G/DL (3.4-5.0); ANION GAP 14 (8-16); BLOOD UREA NITROGEN 15 MG/DL (7-18); CALCIUM 8.2 MG/DL (8.5-10.1); CHLORIDE 104 MMOL/L (99-107); CREATININE 1.07 MG/DL (0.60-1.10); GLUCOSE 137 MG/DL (70-104); POTASSIUM 4.6 MMOL/L (3.5-5.1); SODIUM 141 MMOL/L (135-145); TOTAL CARBON DIOXIDE 23.3 MMOL/L (24-32); eGFR 70 ML/MIN
[2022-02-09] MEDS: insulin regular, human U-100 3ml vial - multi-dose SQ SCH (08:56)
[2022-02-09] MEDS: ondansetron/PF 4mg/2ml inj IV PRN ×2 (09:33→16:01)
[2022-02-09] MEDS: HYDROmorphone/PF 0.2 MG/ML SYRINGE IV PRN ×3 (09:34→22:59)
[2022-02-09] MEDS: normal saline 1000ml 1,000 ML IV SCH ×2 (10:20→20:29)
--- NOTE | 2022-02-09 10:25 | NUR ---
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 PO ~79% avg meals partially meeting estimated needs. Pt multiple recent admits accepting of Oswaldo for wound healing at that time. RIDDHI recommends strawberry Oswaldo smoothie BIDBD and Ensure High Protein WL for wound healing; notified. LBM 02/07 receiving routine colace. Will continue to monitor. Rec: 1. continue carb controlled diet 2. strawberry Oswaldo smoothie BIDBD and Ensure High Protein WL for wound healing; pending physician verification in EMR 3. routine bowel care 4. weekly wts Addendum: 02/09/22 at [address] Amended: Links added.
[2022-02-09 14:00] VITALS: BP 132/63
[2022-02-09] MEDS ORDERED: naloxone 0.4 mg/ml inj IV PRN (15:50)
[2022-02-09] MEDS ORDERED: HYDROcodone/acetaminophen 10/325mg tab PO PRN (15:55)
[2022-02-09] MEDS ORDERED: acetaminophen 325mg tablet PO PRN (15:55)
[2022-02-09] MEDS ORDERED: diphenhydrAMINE 25mg capsule PO PRN ×2 (16:00)
[2022-02-09] MEDS ORDERED: bisacodyl 10mg suppository rectal RC PRN (16:05)
[2022-02-09 18:00] VITALS: BP 156/64
[2022-02-09] MEDS: sennosides 8.6mg tablet PO SCH (20:29)
[2022-02-09] MEDS: insulin glargine (Lantus) pen - multi-dose SQ SCH (21:23)
[2022-02-10] MEDS: cefepime 1GM/NS ADD-VANTAGE 100 ML IV SCH ×3 (00:06→16:55)
[2022-02-10] MEDS: normal saline 1000ml 1,000 ML IV SCH ×2 (02:20→06:20)
--- NOTE | 2022-02-10 04:42 | NUR ---
Agree with Brittni SPORTS INSTRUCTOR assessment.
[2022-02-10 06:00] VITALS: BP 154/74
--- NOTE | 2022-02-10 06:28 | NUR ---
Problems reprioritized. Patient report given, questions answered & plan of care reviewed with Annabelle BEASLEY.
--- NOTE | 2022-02-10 06:59 | NUR ---
Patient in room PCU 3014. I have received report from ANITA VILLALBA, and had the opportunity to ask questions and assume patient care.
[2022-02-10 08:49] LABS: BLOOD UREA NITROGEN 14 MG/DL (7-18); BUN/CREATININE RATIO 11.1 (5.4-32.0); CHLORIDE 106 MMOL/L (99-107); CREATININE 1.26 MG/DL (0.60-1.10); FERRITIN 188 NG/ML (26-388); GLUCOSE 114 MG/DL (70-104); POTASSIUM 4.5 MMOL/L (3.5-5.1); SODIUM 138 MMOL/L (135-145); eGFR 58 ML/MIN
[2022-02-10 08:50] LABS: ANION GAP 8 (8-16); CALCIUM 8.4 MG/DL (8.5-10.1); TOTAL CARBON DIOXIDE 24.5 MMOL/L (24-32)
[2022-02-10 08:56] LABS: % IRON SATURATION 10 % (11-46); IRON 10 UG/DL (53-167); TOTAL IRON BINDING CAPACITY 101 UG/DL (259-388)
[2022-02-10] MEDS: enoxaparin 30mg/0.3ml syringe SQ SCH ×2 (09:10→20:56)
[2022-02-10] MEDS: tamsulosin 0.4mg capsule PO SCH (09:11)
[2022-02-10] MEDS: isosorbide mononitrate 30mg tab.SR.24H PO SCH (09:11)
[2022-02-10] MEDS: aspirin 81mg, enteric-coated 1 TAB TABLET.DR PO SCH (09:11)
[2022-02-10] MEDS: docusate sod 100mg capsule PO SCH ×2 (09:11→20:55)
[2022-02-10] MEDS: atorvastatin 20mg tablet PO SCH (09:11)
[2022-02-10] MEDS: gabapentin 300mg capsule PO SCH ×2 (09:12→20:55)
[2022-02-10] MEDS: amLODIPine 5mg tablet PO SCH (09:12)
[2022-02-10] MEDS: insulin regular, human U-100 3ml vial - multi-dose SQ SCH (09:18)
[2022-02-10 11:50] VITALS: BP 103/55
[2022-02-10] MEDS ORDERED: dextrose 50%-water 50ml dispensing syringe IV ONE (12:15)
--- NOTE | 2022-02-10 12:50 | NUR ---
PAGE SENT PAGER ID: [phone] MESSAGE: [id number] FANNY BROOKS, PT'S BG 48, 44, NO DEXTROSE IN PRN. DEXTROSE 50 GIVEN. PT BG CURRENTLY 150 THANK YOU, VANI Rollins4
[2022-02-10] MEDS ORDERED: glucagon, human recombinant 1mg kit SUBCUT PRN (12:55)
[2022-02-10] MEDS ORDERED: MESSAGE TO PHARMACY PO ONE (12:55)
[2022-02-10] MEDS ORDERED: dextrose 50%-water 50ml dispensing syringe IV PRN ×2 (12:55)
[2022-02-10] MEDS ORDERED: DEXTROSE 15 GM of carb/4 tabs (each vial/BOTTLE has 4 tablets) PO PRN ×2 (12:55)
--- NOTE | 2022-02-10 13:03 | NUR ---
PT'S 1200 BG 48, CHECKED AGAIN 44. NO ORDER FOR DEXTROSE 50 IN EMAR. DEXTROSE REMOVED FROM OMNICELL AND ADMINISTERED. BG CHECKED 150. NOTIFIED. ORDERS FOR HYPER/HYPOGLYCEMIC PROTOCOL, D/C 22UNITS HUMALIN DAILY, RECEIVED.
[2022-02-10] MEDS: ondansetron/PF 4mg/2ml inj IV PRN ×2 (13:59→20:56)
[2022-02-10] MEDS: HYDROmorphone/PF 0.2 MG/ML SYRINGE IV PRN ×2 (14:00→20:56)
[2022-02-10 14:58] VITALS: BP 132/64
[2022-02-10 18:00] VITALS: BP 140/71
--- NOTE | 2022-02-10 18:58 | NUR ---
Problems reprioritized. Patient report given, questions answered & plan of care reviewed with RAMOS ABRAHAM.
[2022-02-10] MEDS: sennosides 8.6mg tablet PO SCH (20:55)
[2022-02-10] MEDS: insulin glargine (Lantus) pen - multi-dose SQ SCH ×2 (21:00)
[2022-02-10 22:00] VITALS: BP 121/70
[2022-02-11] VITALS (21 sets, daily range): BP systolic 123–177; BP diastolic 54–93
[2022-02-11] MEDS ORDERED: insulin glargine (Lantus) pen - multi-dose SQ ONE (01:30)
--- NOTE | 2022-02-11 01:30 | NUR ---
Per Dr. Singh give 1/2 the previous night dose of Lantus since pt is going to surgery in the am. So it will be 6units to be given.
--- NOTE | 2022-02-11 01:38 | NUR ---
[facility]; DOES NOT NEED LANTUS AT [facility] 02/10/2022 HS.
[2022-02-11] MEDS: cefepime 1GM/NS ADD-VANTAGE 100 ML IV SCH ×3 (01:42→17:07)
[2022-02-11] MEDS: normal saline 1000ml 1,000 ML IV SCH ×3 (02:20→22:50)
[2022-02-11] MEDS: HYDROmorphone/PF 0.2 MG/ML SYRINGE IV PRN ×3 (02:52→23:05)
--- NOTE | 2022-02-11 04:51 | NUR ---
Pt refused bowel care, said today is surgery day, do not want to take bowel care meds.
[2022-02-11] MEDS ORDERED: bacitracin 15gm ointment TP ONE (07:33)
[2022-02-11] MEDS: enoxaparin 30mg/0.3ml syringe SQ SCH ×2 (08:00→20:53)
[2022-02-11] MEDS ORDERED: FENTANYL CITRATE/PF 50 MCG/1 ML VIAL ONE (08:11)
[2022-02-11] MEDS ORDERED: midazolam 1 mg/ML 2ml injection ONE (08:11)
[2022-02-11] MEDS ORDERED: BUPIVAcaine 0.5% inj/PF 30 ML ONE (08:14)
[2022-02-11] MEDS ORDERED: dexamethasone sod phosphate 4mg/ml inj. ONE (08:44)
[2022-02-11] MEDS ORDERED: ondansetron/PF 4mg/2ml inj ONE (08:44)
[2022-02-11] MEDS ORDERED: LIDOcaine 2% (20mg/ml) 5ml vial ONE (08:44)
[2022-02-11] MEDS ORDERED: propofol inj 20 ML IV ONE (08:44)
[2022-02-11] MEDS ORDERED: HYDROcodone/acetaminophen 10/325mg tab PO PRN (08:50)
[2022-02-11] MEDS ORDERED: acetaminophen 325mg tablet PO PRN ×2 (08:50)
[2022-02-11] MEDS ORDERED: diphenhydrAMINE 25mg capsule PO PRN ×2 (08:50)
[2022-02-11] MEDS ORDERED: naloxone 0.4 mg/ml inj IV PRN (08:50)
[2022-02-11] MEDS ORDERED: magnesium hydroxide 30ml (MOM) UD suspension PO PRN (08:50)
[2022-02-11] MEDS ORDERED: bisacodyl 10mg suppository rectal RC PRN (08:50)
--- NOTE | 2022-02-11 08:57 | NUR ---
Received from OR via HOSPITAL BED , accompanied by Anesthesiologist DR OBRIEN and report given by Anesthesiolgist. PT PRESENTS WITH 20G LEFT SRIST, RIGHT FOOT WOUND VAC 125 MM/HG. VSS. Addendum: 02/11/22 at 0914 by Cornelia Collins RN, RN Amended: Links added.
[2022-02-11] MEDS ORDERED: proCHLORperazine 10 MG/2 ml inj IV PRN (09:15)
[2022-02-11] MEDS ORDERED: morphine 2 MG/ML inj. syringe IV PRN (09:15)
[2022-02-11] MEDS ORDERED: labetalol 20mg/4ml (5mg/ml) syringe IV PRN (09:15)
[2022-02-11] MEDS ORDERED: ringers solution, lacted 1,000 ML IV SCH (09:15)
[2022-02-11] MEDS ORDERED: meperidine/PF 25mg/ml syringe IV PRN ×2 (09:15)
[2022-02-11] MEDS ORDERED: acetaminophen 1,000mg/100ml IV 100 ML IV PRN (09:15)
[2022-02-11] MEDS ORDERED: morphine 4 MG/ML inj SYRINge IV PRN (09:15)
[2022-02-11] MEDS ORDERED: ondansetron/PF 4mg/2ml inj IV PRN (09:15)
[2022-02-11] MEDS: hydrALAZINE 20mg/ml inj. IV PRN ×3 (09:20→11:44)
[2022-02-11] MEDS: meperidine/PF 25mg/ml syringe IV PRN ×2 (09:24→09:44)
--- NOTE | 2022-02-11 10:37 | NUR ---
Report called to receiving nurse CAITLYN BEASLEY. Transferred via HOSPITAL BED TO ROOM 3014B. BED IN LOW LOCKED POSTION WITH CALL LIGHT IN REACH. CAITLYN BEASLEY AT BEDSIDE. Belongings WERE LEFT IN PT ROOM 3014B. Special Issues communicated to receiving nurse. Addendum: 02/11/22 at 1051 by Cornelia Collins RN RN Amended: Links added.
[2022-02-11] MEDS: aspirin 81mg, enteric-coated 1 TAB TABLET.DR PO SCH (11:44)
[2022-02-11] MEDS: amLODIPine 5mg tablet PO SCH (11:45)
[2022-02-11] MEDS: isosorbide mononitrate 30mg tab.SR.24H PO SCH (11:45)
[2022-02-11] MEDS: docusate sod 100mg capsule PO SCH ×2 (11:45→20:51)
[2022-02-11] MEDS: atorvastatin 20mg tablet PO SCH (11:45)
[2022-02-11] MEDS: tamsulosin 0.4mg capsule PO SCH (11:46)
[2022-02-11] MEDS: gabapentin 300mg capsule PO SCH ×2 (11:46→20:51)
[2022-02-11] MEDS: ciprofloxacin lact 400MG/200ML 200 ML IV SCH (17:05)
[2022-02-11] MEDS: ondansetron/PF 4mg/2ml inj IV PRN ×2 (17:06→23:03)
[2022-02-11] MEDS: insulin Lispro (HumaLOG) vial - multi-dose SQ SCH ×2 (19:03→23:21)
--- NOTE | 2022-02-11 19:18 | NUR ---
Pt was given jucie and a full meal brought in from home from family at bed side and had eaten meal prior to my 1700 blood glucose draw. Pt was 404 but not real blood sugar. I informed Neo BEASLEY, and educated pt and pt family of concerns for [facility] BG protocol sliding scale.
[2022-02-11] MEDS: sennosides 8.6mg tablet PO SCH (20:51)
[2022-02-11] MEDS ORDERED: sennosides 8.6mg tablet PO SCH (21:00)
[2022-02-11] MEDS: insulin glargine (Lantus) pen - multi-dose SQ SCH ×2 (21:00→23:18)
[2022-02-12] VITALS: BP 150/70
[2022-02-12 02:00] VITALS: BP 137/58
--- NOTE | 2022-02-12 05:17 | NUR ---
Pt is on bowel care, 0437 AM took MOM 30 ml, continue to monitor if have number 2 or not.
--- NOTE | 2022-02-12 06:28 | NUR ---
Pt wound Vac accidently by himself took off, primary covered it with wet dry dressing, V/S is stable so far no bleeding, had I&D yesterday, MD and AM nurse notified. continue to closely monitor wound healing condition. wound Vac this Noc shift came out 3 ml bleedy liquid (AM 2 ml Noc 3 ml)
[2022-02-12 07:15] LABS: BASOPHILS # (AUTO) 0.1 X10'3 (0-0.2); BASOPHILS % (AUTO) 0.3 % (0-1); EOSINOPHILS % (AUTO) 0 % (0-6); HEMATOCRIT 29.1 % (42.0-52.0); HEMOGLOBIN 9.6 g/dl (14.0-17.9); LYMPHOCYTES # (AUTO) 1.1 X10'3 (1.1-4.8); LYMPHOCYTES % (AUTO) 6.7 % (21-51); MEAN CORPUSCULAR HEMOGLOBIN 28.5 PG (27.0-31.0); MEAN CORPUSCULAR VOLUME 86.2 FL (78-98); MEAN PLATELET VOLUME 8.2 FL (7.4-10.4); MONOCYTES # (AUTO) 0.8 X10'3 (0-0.9); MONOCYTES % (AUTO) 4.6 % (2-12); NEUTROPHILS % (AUTO) 88.4 % (42-75); PLATELET COUNT 455 X10'3 (140-440); RED BLOOD COUNT 3.37 X10'6 (4.70-6.10); RED CELL DISTRIBUTION WIDTH 14.5 % (11.5-14.5)
[2022-02-12 07:21] LABS: ANION GAP 9 (8-16); CHLORIDE 100 MMOL/L (99-107); POTASSIUM 4.8 MMOL/L (3.5-5.1); SODIUM 135 MMOL/L (135-145); TOTAL CARBON DIOXIDE 25.9 MMOL/L (24-32)
[2022-02-12] MEDS: ciprofloxacin lact 400MG/200ML 200 ML IV SCH (08:00)
[2022-02-12] MEDS: docusate sod 100mg capsule PO SCH (08:00)
[2022-02-12] MEDS: gabapentin 300mg capsule PO SCH (08:00)
[2022-02-12] MEDS: enoxaparin 30mg/0.3ml syringe SQ SCH (08:00)
[2022-02-12 09:45] VITALS: BP_SYST 146
[2022-02-12] MEDS: atorvastatin 20mg tablet PO SCH (09:45)
[2022-02-12] MEDS: amLODIPine 5mg tablet PO SCH (09:45)
[2022-02-12] MEDS: aspirin 81mg, enteric-coated 1 TAB TABLET.DR PO SCH (09:46)
[2022-02-12] MEDS: cefepime 1GM/NS ADD-VANTAGE 100 ML IV SCH ×2 (09:46→16:00)
[2022-02-12] MEDS: isosorbide mononitrate 30mg tab.SR.24H PO SCH (09:58)
[2022-02-12] MEDS: normal saline 1000ml 1,000 ML IV SCH ×2 (09:58→18:20)
[2022-02-12] MEDS: tamsulosin 0.4mg capsule PO SCH (09:59)
[2022-02-12] MEDS: sennosides 8.6mg tablet PO SCH (09:59)
[2022-02-12] MEDS: insulin Lispro (HumaLOG) vial - multi-dose SQ SCH ×2 (10:07→15:05)
--- NOTE | 2022-02-12 11:23 | NUR ---
pt took off wound vac in PM shift according to RN. I called wound care and left a message. I also will check in with Karina MARTIN while on floor for.
[2022-02-12] MEDS ORDERED: vancomycin/NS 1 GM ADD-VANTAGE 250 ML IV SCH (12:00)
--- NOTE | 2022-02-12 12:53 | NUR ---
Notified by Zulema BEASLEY that the patient pulled his wound vac off this am by mistake with BLK foam dressing left in place - needs a new vac dressing placed taylor. Primary nurse did notify the surgeon. I reviewed all surgeons notes. ID patient by name and . Time out, one black foam removed. Pictures were taken. The wound bed was beefy red, no odor or ssx infection noted. Sutures intact distally to the wound and cleansed with alcohol prep pads. Well approximated. The wound bed was irrigated well with normal saline, skin prep applied to sabra wound, peridraped wound with VAC drape, one black foam in with good suction achieved at 125mmHg continuous low suction. Covered with loose 4x4 leigh wrap to remind patient the vac is in place and do not pull it off. Instructed on ssx infection, increased protein for wound healing and off-loading pressure while in bed. Verbalized understanding. The patient tolerated the dressing change well. Reported pain at a 3. He reports he thinks he will be discharging today to [facility]. No other skin issues reported. Plan to see later in the week if he is still in-house.
[2022-02-12] MEDS: HYDROmorphone/PF 0.2 MG/ML SYRINGE IV PRN (15:00)
[2022-02-12] MEDS: ondansetron/PF 4mg/2ml inj IV PRN (15:06)
--- NOTE | 2022-02-12 19:01 | NUR ---
Christa received report at 1730 with resource RN Natty. Pt left in care of RAMOS
--- NOTE | 2022-02-12 19:10 | NUR ---
Pt left via [facility], with wound vac, Christa at change of shift and unaware if they had a wound vac to hook him up too. They said they would send one back if they had one. Pt left with all belongings.
[2022-02-15] MEDS ORDERED: VANCOMYCIN LEVEL IV ONE (11:30)
== END 2022-02-12 19:00 | DRG 305 ==
LOC: PCU 3S 15:54
PROVIDERS: ADMIT Family Medicine; ATTEND Family Medicine
PROC: B41G1ZZ Fluoroscopy of Left Lower Extremity Arteries using Low Osmolar Contrast (ICD-10-PCS; 2022-02-06)
PROC: B41F1ZZ Fluoroscopy of Right Lower Extremity Arteries using Low Osmolar Contrast (ICD-10-PCS; 2022-02-06)
PROC: 0Y9M0ZZ Drainage of Right Foot, Open Approach (ICD-10-PCS; 2022-02-08)
PROC: 0Y6M0ZF Detachment at Right Foot, Partial 5th Ray, Open Approach (ICD-10-PCS; principal; 2022-02-08 11:37)
PROC: 2W1SX6Z Compression of Right Foot using Pressure Dressing (ICD-10-PCS; 2022-02-11)
PROC: 0JBQ0ZZ Excision of Right Foot Subcutaneous Tissue and Fascia, Open Approach (ICD-10-PCS; 2022-02-11)
DX: E11.69 Type 2 diabetes mellitus with other specified complication (principal); N17.9 Acute kidney failure, unspecified; E11.22 Type 2 diabetes mellitus with diabetic chronic kidney disease; M86.671 Other chronic osteomyelitis, right ankle and foot; E11.51 Type 2 diabetes mellitus with diabetic peripheral angiopathy without gangrene; L03.115 Cellulitis of right lower limb; D64.9 Anemia, unspecified; Z20.822 Contact with and (suspected) exposure to COVID-19; E11.621 Type 2 diabetes mellitus with foot ulcer; I12.9 Hypertensive chronic kidney disease with stage 1 through stage 4 chronic kidney disease, or unspecified chronic kidney disease; I99.8 Other disorder of circulatory system; I25.10 Atherosclerotic heart disease of native coronary artery without angina pectoris; N18.9 Chronic kidney disease, unspecified
CPT/HCPCS: 36245; 36415; 75716; 75736; 76937; 80048; 80051; 82607; 82728; 82948; 83540; 83550; 84145; 85025; 87070; 87075; 87077; 87081; 87186; 87811; 97116; 97161; 97164; 97530; A4618; A4620; A6213; A6222; A6223; A6253; A6266; A6446; A6449; A6550; A7000; C1760; C1769; C1894; G0269; G0378; J0360; J0692; J0744; J1100; J1170; J1644; J1650; J1815; J2175; J2250; J2405; J2704; J3010; J3370; J3490; J7030; J7042; J7120; Q9967; S0020

== ENCOUNTER 2022-04-11 20:42 | Inpatient (IN) | payer MEDICAID ==
[~2022-04-11] VITALS: Ht 160 cm; Wt 65.0 kg
[~2022-04-11 20:42] MED LIST changes: -ERTU5TAB PO; -VALS40TA11 PO; +VALS80TA32 PO
[2022-04-11 21:24] LABS: BASOPHILS # (AUTO) 0.1 X10'3 (0-0.2); BASOPHILS % (AUTO) 0.6 % (0-1); EOSINOPHILS # (AUTO) 0.1 X10'3 (0-0.9); EOSINOPHILS % (AUTO) 0.3 % (0-6); HEMATOCRIT 38.6 % (42.0-52.0); HEMOGLOBIN 12.3 g/dl (14.0-17.9); LYMPHOCYTES # (AUTO) 2.1 X10'3 (1.1-4.8); MEAN CORPUSCULAR HEMOGLOBIN 27.3 PG (27.0-31.0); MEAN CORPUSCULAR HGB CONC 31.9 g/dL (33.0-36.5); MEAN CORPUSCULAR VOLUME 85.5 FL (78-98); MEAN PLATELET VOLUME 8.8 FL (7.4-10.4); MONOCYTES # (AUTO) 0.8 X10'3 (0-0.9); MONOCYTES % (AUTO) 5.2 % (2-12); NEUTROPHILS # (AUTO) 11.9 X10'3 (1.8-7.7); NEUTROPHILS % (AUTO) 79.9 % (42-75); PLATELET COUNT 262 X10'3 (140-440); RED BLOOD COUNT 4.52 X10'6 (4.70-6.10); RED CELL DISTRIBUTION WIDTH 17.2 % (11.5-14.5); WHITE BLOOD COUNT 14.9 X10'3 (4.5-11.0)
[2022-04-11 21:34] LABS: ALANINE AMINOTRANSFERASE 23 U/L (12-78); ALBUMIN 3.3 G/DL (3.4-5.0); ALBUMIN/GLOBULIN RATIO 0.8 (1.1-1.5); ALKALINE PHOSPHATASE 74 IU/L (46-116); ANION GAP 10 (8-16); ASPARTATE AMINO TRANSFERASE 19 U/L (10-37); BILIRUBIN,TOTAL 0.3 MG/DL (0.1-1.0); BLOOD UREA NITROGEN 67 MG/DL (7-18); BUN/CREATININE RATIO 35.1 (5.4-32.0); CALCIUM 9.3 MG/DL (8.5-10.1); CHLORIDE 100 MMOL/L (99-107); CREATININE 1.91 MG/DL (0.60-1.10); GLUCOSE 168 MG/DL (70-104); LIPASE 73 U/L (73-393); POTASSIUM 4.3 MMOL/L (3.5-5.1); SODIUM 135 MMOL/L (135-145); TOTAL CARBON DIOXIDE 24.9 MMOL/L (24-32); TOTAL PROTEIN 7.6 G/DL (6.4-8.2); eGFR 36 ML/MIN
[2022-04-11] MEDS ORDERED: diltiazem 5mg/ml 5ml inj. IV ONE (23:20)
[2022-04-11] MEDS ORDERED: morphine 4 MG/ML inj SYRINge IV ONE (23:55)
[2022-04-12 00:16] LABS: CLARITY,URINE CLEAR (Clear); COLOR,URINE YELLOW (Yellow); GLUCOSE, URINE >=1000 mg/dl (Neg); KETONES,URINE NEGATIVE (Neg); LEUKOCYTE ESTERASE ,URINE NEGATIVE (Neg); NITRITES, URINE NEGATIVE (Neg); OCCULT BLOOD,URINE NEGATIVE (Neg); PH,URINE 5.5 (4.8-8.0); PROTEIN,URINE TRACE mg/dl (Neg); UROBILINOGEN,URINE 0.2 E.U/dL (0.2-1.0)
[2022-04-12 00:22] LABS: UA COLLECTION TYPE OTHER
[2022-04-12 00:28] LABS: BACTERIA,URINE NONE SEEN /HPF (Neg); SQUAMOUS EPITHELIAL CELL,UR FEW /LPF (FEW); WBC,URINE 0-4 /HPF (0-4)
[2022-04-12] MEDS ORDERED: iohexol 350MG/ML 100ml bottle IV ONE (00:47)
[2022-04-12] MEDS ORDERED: LORazepam 2 mg/ml vial IV ONE (04:05)
[2022-04-12] MEDS ORDERED: normal saline 1000ML IV soln IVB ONE (04:10)
[2022-04-12] MEDS ORDERED: HYDROcodone/acetaminophen 5mg/325mg tablet PO PRN (05:00)
[2022-04-12] MEDS ORDERED: HYDROmorphone/PF 0.2 MG/ML SYRINGE IV PRN (05:00)
[2022-04-12] MEDS ORDERED: magnesium hydroxide 30ml (MOM) UD suspension PO PRN (05:00)
[2022-04-12] MEDS ORDERED: magnesium Cl slow-release 64mg tablet PO PRN (05:00)
[2022-04-12] MEDS ORDERED: potassium Cl 40MEQ/1/2NS 520ml 520 ML IV PRN (05:00)
[2022-04-12] MEDS ORDERED: ondansetron 4mg rapidly disintigrating tab PO PRN (05:00)
[2022-04-12] MEDS ORDERED: metoclopramide 5 mg/ml inj IV PRN (05:00)
[2022-04-12] MEDS ORDERED: HYDROmorphone inj. 0.5 MG/0.5 ML DISP.SYRIN IV PRN (05:00)
[2022-04-12] MEDS ORDERED: potassium Cl 20 mEq SR tablet PO PRN ×2 (05:00)
[2022-04-12] MEDS ORDERED: acetaminophen 325mg tablet PO PRN ×2 (05:00)
[2022-04-12] MEDS ORDERED: ondansetron/PF 4mg/2ml inj IV PRN (05:00)
[2022-04-12] MEDS ORDERED: HYDROcodone/acetaminophen 10/325mg tab PO PRN (05:00)
[2022-04-12] MEDS ORDERED: bisacodyl 10mg suppository rectal RC PRN (05:00)
[2022-04-12] MEDS ORDERED: mag hydrox/Alum hydrox/simeth 30ml oral suspension PO PRN (05:00)
[2022-04-12] MEDS ORDERED: magnesium 4gm in 100ml NS 100 ML IV PRN (05:00)
[2022-04-12] MEDS ORDERED: VALS40TA2 PO (05:13)
[2022-04-12] MEDS ORDERED: ERTU5TAB PO (05:13)
[2022-04-12] MEDS ORDERED: AMLO2.5T2 PO (05:14)
[2022-04-12] MEDS ORDERED: vancomycin/NS 1 GM ADD-VANTAGE 250 ML X 1 DOSE IV ONE (05:20)
[2022-04-12] MEDS: normal saline 1000ml 1,000 ML IV SCH ×3 (05:54→21:43)
--- NOTE | 2022-04-12 06:58 | NUR ---
Pt had episode of dark vomit. BP following episode: 193/94, P 109, 97% O2 on RA. 16 R. States he feels better.
[2022-04-12 07:06] LABS: MAGNESIUM 2.7 MG/DL (1.5-2.4); POTASSIUM 5.6 MMOL/L (3.5-5.1)
--- NOTE | 2022-04-12 07:17 | NUR ---
Dr. Janneth muse. BP 193/94 HR 104
[2022-04-12] MEDS: K and/or MAG REPLACEMENT MC SCH ×2 (07:39→19:41)
[2022-04-12] MEDS ORDERED: albuterol 2.5 MG/3 ML nebule CONTNEB PRN (07:50)
[2022-04-12] MEDS ORDERED: insulin regular, human 10 units/0.1 ml syringe IV ONE (07:50)
[2022-04-12] MEDS ORDERED: sodium bicarbonate (8.4%) 1 mEq/ml syringe IV ONE (07:50)
[2022-04-12] MEDS ORDERED: CALCIUM GLUC 1gm/50ml NACL,iso 100 ML IV ONE (07:50)
[2022-04-12] MEDS ORDERED: dextrose 50%-water 50ml dispensing syringe IV ONE (07:50)
[2022-04-12] MEDS: CefTRIAXone/D5W-Rocephin 1gm 50 ML IV SCH (07:58)
[2022-04-12] MEDS: heparin, porcine 5000 units/ml vial SQ SCH ×2 (08:00→19:47)
[2022-04-12] MEDS: docusate sod 100mg capsule PO SCH ×2 (08:00→19:47)
[2022-04-12 08:30] LABS: ALANINE AMINOTRANSFERASE 18 U/L (12-78); ALBUMIN 3.2 G/DL (3.4-5.0); ALBUMIN/GLOBULIN RATIO 0.7 (1.1-1.5); ALKALINE PHOSPHATASE 85 IU/L (46-116); ANION GAP 6 (8-16); ASPARTATE AMINO TRANSFERASE 21 U/L (10-37); BILIRUBIN,TOTAL 0.4 MG/DL (0.1-1.0); BLOOD UREA NITROGEN 59 MG/DL (7-18); BUN/CREATININE RATIO 33.5 (5.4-32.0); CALCIUM 9.1 MG/DL (8.5-10.1); CHLORIDE 102 MMOL/L (99-107); CREATININE 1.76 MG/DL (0.60-1.10); GLUCOSE 312 MG/DL (70-104); POTASSIUM 5.7 MMOL/L (3.5-5.1); SODIUM 134 MMOL/L (135-145); TOTAL CARBON DIOXIDE 26.1 MMOL/L (24-32); TOTAL PROTEIN 7.6 G/DL (6.4-8.2); eGFR 39 ML/MIN
[2022-04-12 08:31] LABS: BASOPHILS % (AUTO) 0.1 % (0-1); EOSINOPHILS % (AUTO) 0 % (0-6); HEMATOCRIT 38.9 % (42.0-52.0); HEMOGLOBIN 12.4 g/dl (14.0-17.9); LYMPHOCYTES # (AUTO) 1.1 X10'3 (1.1-4.8); LYMPHOCYTES % (AUTO) 5.1 % (21-51); MEAN CORPUSCULAR HEMOGLOBIN 27.2 PG (27.0-31.0); MEAN CORPUSCULAR HGB CONC 31.8 g/dL (33.0-36.5); MEAN CORPUSCULAR VOLUME 85.4 FL (78-98); MEAN PLATELET VOLUME 8.8 FL (7.4-10.4); MONOCYTES # (AUTO) 0.7 X10'3 (0-0.9); MONOCYTES % (AUTO) 3.3 % (2-12); NEUTROPHILS # (AUTO) 19.1 X10'3 (1.8-7.7); NEUTROPHILS % (AUTO) 91.5 % (42-75); PLATELET COUNT 264 X10'3 (140-440); RED BLOOD COUNT 4.56 X10'6 (4.70-6.10); RED CELL DISTRIBUTION WIDTH 17.4 % (11.5-14.5); WHITE BLOOD COUNT 20.9 X10'3 (4.5-11.0)
--- NOTE | 2022-04-12 09:30 | NUR ---
Pt's Ca Gluconate 100ml/hr was given but not signed off, accidentally. Pt tolerated w/out issue.
[2022-04-12 11:30] VITALS: BP 153/60
--- NOTE | 2022-04-12 11:30 | NUR ---
Received report from Breana in ER, patient transferred to floor via hospital bed accompanied by ER bus transportation manager and patient's daughter. Patient ambulated with supervision to bed in room. Patient is alert and oriented, able to make needs known. Orientation provided to call light, education provided re fall precautions, patient verbalized understanding. VS obtained, assessment performed. All needs met at this time
--- NOTE | 2022-04-12 12:29 | NUR ---
PRESSURE ULCER EDUCATION: DEFINITION: A pressure ulcer is an area of skin that breaks down when you stay in one position too long. The constant pressure against the skin reduces the blood flow to that area and the affected tissue dies. CAUSES: "Being bedridden or in a wheelchair "Fragile skin "Having a chronic condition, such as diabetes or vascular disease "Inability to move certain parts of your body without assistance "Older age "Incontinence of urine or stool SYMPTOMS: "A reddened area that DOES NOT turn white when pressed on - this can be the beginning of a pressure ulcer "A blister, deep sore or a crater - these can be advanced pressure ulcers FIRST AID: "Relieve the pressure on this area "Keep the area clean and dry "Call your primary doctor if you see any of the above symptoms "DO NOT massage the area "DO NOT use a donut shaped or ring shaped pillow- these actually interfere with the blood flow and cause complications PREVENTION: "Check for pressure ulcers everyday "Change position at least every two hours to relieve pressure "Use items that help relieve pressure- pillows, sheepskin, foam padding, and powders. "Keep skin clean and dry "Eat healthy well balanced meals "Exercise daily IF YOU SEE ANY OF THESE SYMPTOMS WHILE IN THE HOSPITAL - TELL YOUR NURSE IMMEDIATELY. IF YOU SEE ANY OF THESE SYMPTOMS WHILE AT HOME OR HAVE ANY QUESTIONS OR CONCERNS ABOUT PRESSURE ULCERS - CALL YOUR PRIMARY DOCTOR IMMEDIATELY. Addendum: 04/12/22 at 1230 by Valencia Lal RN Amended: Links added.
--- NOTE | 2022-04-12 12:30 | NUR ---
DIABETIC FOOT CARE EDUCATION PROVIDED BY WOUND [facility] * Wash your feet daily with lukewarm water and soap. * Dry your feet well, especially between the toes. * Keep the skin moisturized with lotion, but do not apply it between the toes. * Check your feet for blisters, cuts or sores. * Use an emery board to shape your toenails even with the ends of your toes. * Change daily into clean, soft socks or stockings, not too big or too small. * Keep your feet warm and dry. * Preferably wear special padded socks and shoes that fit well. * Never walk barefoot indoors or outdoors. * Examine your shoes everyday for cracks, rosa, nails or anything that could hurt your feet. * Tell your doctor if you find any of these problems or have any concerns after examining your feet. Addendum: 04/12/22 at 1230 by Valencia Lal RN Amended: Links added.
--- NOTE | 2022-04-12 13:04 | NUR ---
PAGER ID: [phone] MESSAGE: [id number] Christofer Sommer: patients A1C is 7.6, blood glucose 342. would you like hyperglycemic protocol ordered? thanks, deneen [phone]
[2022-04-12] MEDS ORDERED: glucagon, human recombinant 1mg kit SUBCUT PRN (13:10)
[2022-04-12] MEDS ORDERED: MESSAGE TO PHARMACY PO ONE (13:10)
[2022-04-12] MEDS ORDERED: dextrose 50%-water 50ml dispensing syringe IV PRN ×2 (13:10)
[2022-04-12] MEDS ORDERED: DEXTROSE 15 GM of carb/4 tabs (each vial/BOTTLE has 4 tablets) PO PRN ×2 (13:10)
[2022-04-12 16:25] LABS: HEMOGLOBIN A1C 8.1 % (4.5-6.2)
[2022-04-12 18:00] VITALS: BP 142/85
--- NOTE | 2022-04-12 18:21 | NUR ---
I have reviewed and agree with all interventions, assessments performed and documented by ANITA HANSEN.
--- NOTE | 2022-04-12 18:23 | NUR ---
Problems reprioritized. Patient report given, questions answered & plan of care reviewed with Prudence RN.
--- NOTE | 2022-04-12 19:03 | NUR ---
Patient in room [facility]. I have received report from JADE HOWARD/ JOSEMANUEL RN and had the opportunity to ask questions and assume patient care.
[2022-04-12] MEDS ORDERED: TRAM50TA2 PO (19:37)
[2022-04-12] MEDS ORDERED: KETO5DRO82 RIGHTEYE (19:38)
[2022-04-12] MEDS ORDERED: ACET-1084 PO (19:40)
[2022-04-12] MEDS ORDERED: DOCU-148 PO (19:40)
[2022-04-12] MEDS ORDERED: ASCO500C17 PO (19:42)
[2022-04-12] MEDS ORDERED: ONDA4TAB12 PO (19:42)
[2022-04-12] MEDS ORDERED: ZINC100T2 PO (19:43)
[2022-04-12] MEDS ORDERED: MULT-227 PO (19:44)
[2022-04-12] MEDS ORDERED: [UNRECOGNIZED DRUG - OTHER] PO (19:45)
[2022-04-12] MEDS: gabapentin 300mg capsule PO SCH (19:47)
[2022-04-12] MEDS: insulin Lispro (HumaLOG) vial - multi-dose SQ SCH ×2 (19:53→21:41)
[2022-04-12] MEDS ORDERED: docusate sod 100mg capsule PO PRN (20:00)
[2022-04-12] MEDS ORDERED: non-formulary drug (Acetaminophen 1 TAB) PO PRN (20:00)
[2022-04-12] MEDS ORDERED: traMADol 50MG tablet PO PRN (20:00)
[2022-04-12] MEDS ORDERED: ketorolac tromethamine 0.5% ophthalmic drops EACHEYE PRN (20:00)
[2022-04-12] MEDS ORDERED: ketorolac tromethamine 0.5% ophthalmic drops RIGHTEYE PRN (20:03)
[2022-04-12] MEDS ORDERED: temazepam 15mg capsule PO PRN (21:00)
[2022-04-12] MEDS: insulin glargine (Lantus) pen - multi-dose SQ SCH (21:40)
[2022-04-12 22:00] VITALS: BP 146/68
[2022-04-13 04:40] LABS: BASOPHILS # (AUTO) 0.1 X10'3 (0-0.2); BASOPHILS % (AUTO) 0.4 % (0-1); EOSINOPHILS % (AUTO) 0 % (0-6); HEMATOCRIT 33.6 % (42.0-52.0); HEMOGLOBIN 10.9 g/dl (14.0-17.9); LYMPHOCYTES # (AUTO) 1.7 X10'3 (1.1-4.8); LYMPHOCYTES % (AUTO) 7.8 % (21-51); MEAN CORPUSCULAR HEMOGLOBIN 27.5 PG (27.0-31.0); MEAN CORPUSCULAR HGB CONC 32.3 g/dL (33.0-36.5); MEAN CORPUSCULAR VOLUME 85.2 FL (78-98); NEUTROPHILS # (AUTO) 18.2 X10'3 (1.8-7.7); NEUTROPHILS % (AUTO) 82.8 % (42-75); PLATELET COUNT 248 X10'3 (140-440); RED BLOOD COUNT 3.94 X10'6 (4.70-6.10); RED CELL DISTRIBUTION WIDTH 17.1 % (11.5-14.5)
[2022-04-13] MEDS: VANCOMYCIN 750MG IV in NS 250 ML IV SCH (05:00)
[2022-04-13 05:02] LABS: ALANINE AMINOTRANSFERASE 14 U/L (12-78); ALBUMIN 2.8 G/DL (3.4-5.0); ALBUMIN/GLOBULIN RATIO 0.8 (1.1-1.5); ALKALINE PHOSPHATASE 74 IU/L (46-116); ANION GAP 7 (8-16); ASPARTATE AMINO TRANSFERASE 22 U/L (10-37); BILIRUBIN,TOTAL 0.5 MG/DL (0.1-1.0); BLOOD UREA NITROGEN 49 MG/DL (7-18); BUN/CREATININE RATIO 28.5 (5.4-32.0); CALCIUM 8.6 MG/DL (8.5-10.1); CHLORIDE 106 MMOL/L (99-107); CREATININE 1.72 MG/DL (0.60-1.10); GLUCOSE 222 MG/DL (70-104); MAGNESIUM 2.5 MG/DL (1.5-2.4); POTASSIUM 4.3 MMOL/L (3.5-5.1); SODIUM 140 MMOL/L (135-145); TOTAL CARBON DIOXIDE 27.5 MMOL/L (24-32); TOTAL PROTEIN 6.5 G/DL (6.4-8.2); eGFR 40 ML/MIN
[2022-04-13] MEDS: hydrALAZINE 20mg/ml inj. IV PRN (05:11)
[2022-04-13 06:19] VITALS: BP 191/89
--- NOTE | 2022-04-13 06:20 | NUR ---
Patient in room [facility]. I have received report from RAMOS Jackson and had the opportunity to ask questions and assume patient care.
--- NOTE | 2022-04-13 06:37 | NUR ---
Problems reprioritized. Patient report given, questions answered & plan of care reviewed with REMINGTON HOWARD.
[2022-04-13] MEDS: gabapentin 300mg capsule PO SCH ×2 (07:37→19:33)
[2022-04-13] MEDS: atorvastatin 20mg tablet PO SCH (07:38)
[2022-04-13] MEDS: docusate sod 100mg capsule PO SCH ×2 (07:38→19:33)
[2022-04-13] MEDS: losartan 25mg tablet PO SCH (07:39)
[2022-04-13] MEDS: isosorbide mononitrate 30mg tab.SR.24H PO SCH (07:40)
[2022-04-13] MEDS: amLODIPine 2.5mg tablet PO SCH (07:40)
[2022-04-13] MEDS: heparin, porcine 5000 units/ml vial SQ SCH ×2 (07:41→19:33)
[2022-04-13] MEDS: aspirin 81mg, enteric-coated 1 TAB TABLET.DR PO SCH (07:41)
[2022-04-13] MEDS: multivitamins, therapeutics tablet PO SCH (07:41)
[2022-04-13] MEDS: tamsulosin 0.4mg capsule PO SCH (07:42)
[2022-04-13] MEDS: K and/or MAG REPLACEMENT MC SCH ×2 (07:42→19:45)
[2022-04-13] MEDS: CefTRIAXone/D5W-Rocephin 1gm 50 ML IV SCH (07:50)
[2022-04-13] MEDS: insulin Lispro (HumaLOG) vial - multi-dose SQ SCH ×3 (09:16→19:30)
[2022-04-13 10:52] VITALS: BP 144/59
[2022-04-13] MEDS: normal saline 1000ml 1,000 ML IV SCH ×2 (11:21→19:59)
--- NOTE | 2022-04-13 14:24 | NUR ---
TAP DANCER documentation: I have reviewed and agree with all interventions, assessments performed and documented by Cathy Treadwell LVN.
--- NOTE | 2022-04-13 16:04 | NUR ---
Malnutrition/DM consults: Pt reports 2-13 lb wt loss with decreased appetite per malnutrition risk screen with RN. Per ED report pt with nausea the day SUPERVISING NURSE and emesis the day of admit. Pt with scaled wt h/o 65.91 kg 01/29/22 and 65.7 kg 02/05/22, current documented wt is 65 kg. Wt appears stable. Pt with no documented decrease in muscle strength or edema and per H&P pt appears well developed well nourished. Pt currently lacks a minimum of two criteria for malnutrition. Per EMR pt with T2DM, current A1c 8.1%. Written DM education in Thai placed in patient's chart with RD contact information. Pt has received written and verbal DM education at a previous admit. Will continue to follow. Addendum: 04/13/22 at [address] Amended: Links added.
[2022-04-13 18:00] VITALS: BP 132/64
--- NOTE | 2022-04-13 18:15 | NUR ---
Patient in room [facility]. I have received report from REMINGTON HOWARD and had the opportunity to ask questions and assume patient care.
--- NOTE | 2022-04-13 18:16 | NUR ---
Problems reprioritized. Patient report given, questions answered & plan of care reviewed with RAMOS Jackson.
[2022-04-13] MEDS: insulin glargine (Lantus) pen - multi-dose SQ SCH (21:54)
[2022-04-13 22:50] VITALS: BP 144/63
[2022-04-14 04:54] LABS: BASOPHILS # (AUTO) 0.1 X10'3 (0-0.2); BASOPHILS % (AUTO) 0.6 % (0-1); EOSINOPHILS # (AUTO) 0.1 X10'3 (0-0.9); EOSINOPHILS % (AUTO) 0.4 % (0-6); HEMOGLOBIN 11.2 g/dl (14.0-17.9); LYMPHOCYTES # (AUTO) 2.2 X10'3 (1.1-4.8); LYMPHOCYTES % (AUTO) 12.2 % (21-51); MEAN CORPUSCULAR HEMOGLOBIN 27.8 PG (27.0-31.0); MEAN CORPUSCULAR HGB CONC 32.9 g/dL (33.0-36.5); MEAN CORPUSCULAR VOLUME 84.7 FL (78-98); MEAN PLATELET VOLUME 8.8 FL (7.4-10.4); MONOCYTES # (AUTO) 1.3 X10'3 (0-0.9); MONOCYTES % (AUTO) 7.2 % (2-12); NEUTROPHILS # (AUTO) 14.3 X10'3 (1.8-7.7); NEUTROPHILS % (AUTO) 79.6 % (42-75); PLATELET COUNT 240 X10'3 (140-440); RED BLOOD COUNT 4.02 X10'6 (4.70-6.10); RED CELL DISTRIBUTION WIDTH 16.9 % (11.5-14.5)
[2022-04-14] MEDS: VANCOMYCIN 750MG IV in NS 250 ML IV SCH (05:01)
[2022-04-14 05:04] LABS: ALANINE AMINOTRANSFERASE 15 U/L (12-78); ALBUMIN 2.6 G/DL (3.4-5.0); ALBUMIN/GLOBULIN RATIO 0.7 (1.1-1.5); ALKALINE PHOSPHATASE 73 IU/L (46-116); ANION GAP 4 (8-16); ASPARTATE AMINO TRANSFERASE 19 U/L (10-37); BILIRUBIN,TOTAL 0.4 MG/DL (0.1-1.0); BLOOD UREA NITROGEN 29 MG/DL (7-18); CALCIUM 8.2 MG/DL (8.5-10.1); CHLORIDE 106 MMOL/L (99-107); CREATININE 1.38 MG/DL (0.60-1.10); GLUCOSE 112 MG/DL (70-104); MAGNESIUM 2.2 MG/DL (1.5-2.4); POTASSIUM 4.1 MMOL/L (3.5-5.1); SODIUM 138 MMOL/L (135-145); TOTAL CARBON DIOXIDE 27.8 MMOL/L (24-32); TOTAL PROTEIN 6.3 G/DL (6.4-8.2); eGFR 52 ML/MIN
[2022-04-14] MEDS: hydrALAZINE 20mg/ml inj. IV PRN (06:00)
--- NOTE | 2022-04-14 06:29 | NUR ---
Problems reprioritized. Patient report given, questions answered & plan of care reviewed with MARGARETH BEASLEY.
[2022-04-14 06:32] VITALS: BP 171/85
[2022-04-14] MEDS: K and/or MAG REPLACEMENT MC SCH (06:41)
[2022-04-14] MEDS: normal saline 1000ml 1,000 ML IV SCH ×2 (07:00→09:47)
[2022-04-14] MEDS: CefTRIAXone/D5W-Rocephin 1gm 50 ML IV SCH (07:52)
[2022-04-14] MEDS: gabapentin 300mg capsule PO SCH (07:55)
[2022-04-14] MEDS: isosorbide mononitrate 30mg tab.SR.24H PO SCH (07:55)
[2022-04-14] MEDS: tamsulosin 0.4mg capsule PO SCH (07:56)
[2022-04-14] MEDS: atorvastatin 20mg tablet PO SCH (07:56)
[2022-04-14] MEDS: aspirin 81mg, enteric-coated 1 TAB TABLET.DR PO SCH (07:56)
[2022-04-14] MEDS: amLODIPine 2.5mg tablet PO SCH (07:57)
[2022-04-14] MEDS: losartan 25mg tablet PO SCH (07:58)
[2022-04-14] MEDS: docusate sod 100mg capsule PO SCH (07:59)
[2022-04-14] MEDS: multivitamins, therapeutics tablet PO SCH (08:00)
[2022-04-14] MEDS: heparin, porcine 5000 units/ml vial SQ SCH (08:02)
[2022-04-14 10:47] VITALS: BP 142/77
--- NOTE | 2022-04-14 12:09 | NUR ---
Pt discharged home with daughter. Pt has f/u appt at woundcare for foot. No pictures taken for dc, wound is surgical in nature. Pt has home wound vac which is going home with him. IV taken out, No belongings left in room and no medications ordered for dc. PT doing well, no complaints at this time to prevent pt from going home.
[2022-04-15] MEDS ORDERED: VANCOMYCIN LEVEL IV ONE (04:30)
== END 2022-04-14 12:10 | disposition home health service (06) | DRG 48 ==
LOC: ER 20:43 → ED HOLD 04-12 05:09 → EDBEDREQ 04-12 05:29 → SUR 3N 04-12 11:56
PROVIDERS: ADMIT Family Medicine; ATTEND Family Medicine
PROC: B4201ZZ Computerized Tomography (CT Scan) of Abdominal Aorta using Low Osmolar Contrast (ICD-10-PCS; principal; 2022-04-12)
DX: E11.43 Type 2 diabetes mellitus with diabetic autonomic (poly)neuropathy (principal); K55.069 Acute infarction of intestine, part and extent unspecified; N17.0 Acute kidney failure with tubular necrosis; E11.22 Type 2 diabetes mellitus with diabetic chronic kidney disease; E86.0 Dehydration; I48.91 Unspecified atrial fibrillation; L03.115 Cellulitis of right lower limb; K31.84 Gastroparesis; E11.42 Type 2 diabetes mellitus with diabetic polyneuropathy; I50.9 Heart failure, unspecified; E11.51 Type 2 diabetes mellitus with diabetic peripheral angiopathy without gangrene; E11.65 Type 2 diabetes mellitus with hyperglycemia; I13.0 Hypertensive heart and chronic kidney disease with heart failure and stage 1 through stage 4 chronic kidney disease, or unspecified chronic kidney disease; E78.00 Pure hypercholesterolemia, unspecified; E87.5 Hyperkalemia; I25.10 Atherosclerotic heart disease of native coronary artery without angina pectoris; N18.9 Chronic kidney disease, unspecified; Z79.4 Long term (current) use of insulin; Z83.3 Family history of diabetes mellitus; Z86.73 Personal history of transient ischemic attack (TIA), and cerebral infarction without residual deficits; Z95.5 Presence of coronary angioplasty implant and graft; Z79.899 Other long term (current) drug therapy
CPT/HCPCS: 36415; 74174; 74176; 76700; 80053; 81001; 81003; 82948; 83036; 83605; 83690; 83735; 84132; 84145; 85025; 87040; 87081; 93005; 94640; 94760; 96374; 96375; 97116; 97161; 97530; 99285; A6222; A6449; A6550; A7015; G0378; J0360; J0610; J0696; J1644; J1815; J2060; J2270; J2405; J2765; J3370; J3490; J7030; J7050; Q9967

== ENCOUNTER 2022-10-22 10:42 | Day surgery (SDC) | payer MEDICAID ==
[~2022-10-22] VITALS: Ht 160 cm; Wt 56.5 kg
[~2022-10-22 10:42] MED LIST changes: +ACET-1084 PO; +AMLO2.5T2 PO; -AMLO5TAB16 PO; +ASCO500C17 PO; +DOCU-148 PO; +ERTU5TAB PO; +KETO5DRO82 RIGHTEYE; -LEVO750T68 PO; +MULT-227 PO; +ONDA4TAB12 PO; +TRAM50TA2 PO; +VALS40TA2 PO; -VALS80TA32 PO; +ZINC100T2 PO; +[UNRECOGNIZED DRUG - OTHER] PO
[2022-10-22 11:36] VITALS: BP 126/63; PULSE 78; RESP 16; TEMP 98.4; O2SAT 94
[2022-10-22 12:30] VITALS: RESP 16; O2SAT 94
[2022-10-22] MEDS ORDERED: FERR325T29 PO (12:52)
[2022-10-22] MEDS ORDERED: SENN-263 PO (12:52)
[2022-10-22] MEDS ORDERED: CARV6.253 PO (12:52)
[2022-10-22] MEDS ORDERED: CALC668T PO (12:52)
[2022-10-22] MEDS ORDERED: CYAN50007 PO (12:52)
[2022-10-22] MEDS ORDERED: Heparin SQ (12:52)
[2022-10-22] MEDS ORDERED: POLY119P2 PO (12:52)
[2022-10-22] MEDS ORDERED: FOLI0.4T6 PO (12:52)
[2022-10-22] MEDS ORDERED: ROSU10TA28 PO (12:52)
[2022-10-22] MEDS ORDERED: EPOE200015 IV (12:52)
[2022-10-22] MEDS ORDERED: CHOL500049 PO (12:52)
[2022-10-22] MEDS ORDERED: ISOS20TA15 PO (12:52)
[2022-10-22 12:59] VITALS: BP 152/81; PULSE 78; RESP 16; O2SAT 96
[2022-10-22 13:30] VITALS: BP 174/81; PULSE 82; RESP 16; O2SAT 93
== END 2022-10-22 16:00 ==
LOC: SSTAY O 10:42
PROVIDERS: ATTEND Radiology Vascular & Interventional Radiology
DX: Z49.01 Encounter for fitting and adjustment of extracorporeal dialysis catheter (principal); E11.69 Type 2 diabetes mellitus with other specified complication; M86.9 Osteomyelitis, unspecified; Z72.89 Other problems related to lifestyle; Z79.899 Other long term (current) drug therapy; Z79.4 Long term (current) use of insulin; Z83.3 Family history of diabetes mellitus
CPT/HCPCS: 36589